=== PATIENT | male | born 1955 | race Caucasian/White ===

== ENCOUNTER 2018-09-01 08:30 | Inpatient (IN) | payer BC ==
--- NOTE | 2018-08-28 18:45 | Pre-op HX & Phy Repo 2 SIG ---
DATE OF ADMISSION: 09/01/2018 SCHEDULED FOR ADMISSION: September 01, 2018. HISTORY OF PRESENT ILLNESS: The patient is a 63-year-old male in overall stable health, who has a malfunctioning Crowder continent ileostomy as well as recurrent incisional hernia. The patient developed granulomatous colitis and in 1992 underwent proctocolectomy with Kathy ileostomy. In 1996 in [facility], he underwent conversion of his conventional ileostomy to a Crowder type of Kock pouch continent ileostomy. 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 The patient for the past year or two has been having intermittent incontinence, but no difficulty intubating. He underwent endoscopy of his pouch in [place] in February 2017 which revealed a shortened nipple valve but the pouch itself was healthy. He states that a conventional Kathy ileostomy is not an option for him. While he has intermittent incontinence, this has been increasing recently. He has had pain around the stoma with scarring and granulation tissue. He has chronic pouchitis with episodes 2 to 3 times a month. He has taken Flagyl and Cipro and irrigated his pouch with L-glutamine. He is scheduled to undergo laparotomy with revision of his Crowder continent ileostomy, likely creating a new valve and stoma and repair of recurrent incisional hernia. PAST MEDICAL HISTORY: MEDICATIONS: Remicade every 6 weeks, Zegerid (PPI), vitamin B12. ALLERGIES: He thinks he may have been allergic to some suture material. OPERATIONS: In addition to the above, he has a penile implant with the inflating device behind the bladder. He has undergone cholecystectomy, right wrist fusion, and knee surgeries. REVIEW OF SYSTEMS: He has arthritis. PHYSICAL EXAMINATION: GENERAL: He is 6 feet and weight 212 pounds. He previously weighed as much as 260 pounds. ABDOMEN: On most recent examination, his abdomen was slightly obese and soft. There is a long midline scar. This is subcostal right upper quadrant scar. There is a ventral hernia in the epigastrium and in the right lower quadrant extensive from above the stoma low in the right lower quadrant to the midline scar above the umbilicus. The [place] and will be examined upon arrival and dictated separately. IMPRESSION: 1. Malfunctioning Crowder continent ileostomy with incontinence due to deficient valve. 2. Painful stoma. 3. Recurrent pouchitis. 4. Incisional hernia. 5. History of granulomatous colitis . 6. Status post multiple abdominal operations. 6.1. Proctocolectomy and Kathy ileostomy in 1992. 6.2. Crowder continent ileostomy in 1996. 6.3. Repair of Crowder continent ileostomy enterocutaneous fistula and revision of stoma with abdominoperineal resection and extensive lysis of adhesions in July 2013 (all these operations were done elsewhere). PLAN: The patient will be admitted to undergo insertion of a dual lumen PICC line, pouch endoscopy, placement of an indwelling catheter for continuous drainage and decompression and will start receiving antibiotics and hydration on the evening of the day of admission preparing for surgery the following day. He will receive preoperative subcutaneous heparin as well. I have had a full discussion regarding the nature of the condition, the nature of the surgery, indications, alternatives, options, and risks and will have another complete discussion when he arrives from out of town. Wallace Valdez M.D. DR: Rachel JOB#: [id number] CC: BLAKE
[~2018-09-01] VITALS: Ht 180.3 cm; Wt 97.5 kg
--- NOTE | 2018-09-01 08:55 | NUR ---
NURSE NOTES: Patient was admitted to room 307 in stable condition. Patient a/o x 4. No respiratory distress noted. Denies any pain at this time. Unit orientation was given. Bed in lowest position, call light within reach. Will continue to monitor.
[2018-09-01 09:00] VITALS: BP 117/77
[2018-09-01] MEDS ORDERED: Zolpidem 5mg tab ORAL PRN (10:15)
[2018-09-01 10:22] LABS: BASOPHILS % (AUTO) 0.8 % (0.0-2.0); EOSINOPHILS % (AUTO) 9.8 % (0.0-3.0); HEMATOCRIT 54.1 % (42.0-52.0); HEMOGLOBIN 17.6 G/DL (14.2-18.0); LYMPHOCYTES % (AUTO) 23.2 % (20.0-45.0); MEAN CORPUSCULAR VOLUME 94 FL (80-99); MONOCYTES % (AUTO) 9.3 % (1.0-10.0); NEUTROPHILS % (AUTO) 56.9 % (45.0-75.0); PLATELET COUNT 206 K/UL (150-450); RED BLOOD COUNT 5.76 M/UL (4.70-6.10); RED CELL DISTRIBUTION WIDTH 12.6 % (11.6-14.8)
[2018-09-01 10:29] LABS: INR 1.1 (0.9-1.1)
[2018-09-01 10:37] LABS: ANION GAP 11 mmol/L (5-15); BLOOD UREA NITROGEN 9 mg/dL (7-18); CALCIUM 9.1 MG/DL (8.5-10.1); CARBON DIOXIDE 25 MMOL/L (21-32); CHLORIDE 105 MMOL/L (98-107); CREATININE 1.2 MG/DL (0.55-1.30); POTASSIUM 3.7 MMOL/L (3.5-5.1); SODIUM 140 MMOL/L (136-145)
--- NOTE | 2018-09-01 10:48 | NUR ---
RADIOLOGY DEPT., CHEST X-RAY DONE.-P.DYE
[2018-09-01 10:55] LABS: ALANINE AMINOTRANSFERASE 34 U/L (12-78); ALBUMIN 3.4 G/DL (3.4-5.0); ALBUMIN/GLOBULIN RATIO 0.8 (1.0-2.7); ALKALINE PHOSPHATASE 76 U/L (46-116); ASPARTATE AMINO TRANSFERASE 24 U/L (15-37); BILIRUBIN,TOTAL 1.2 MG/DL (0.2-1.0)
[2018-09-01 10:56] LABS: BILIRUBIN,DIRECT 0.2 MG/DL (0.0-0.3)
--- NOTE | 2018-09-01 10:57 | NUR ---
Unable to enter Unasyn order due to back order notification RN spoke to Pharmacist Candi, and informed the situation and Candi stated the medication is not available currently and it is on back order requires to replace with another medication. Will follow up with Dr. Valdez.
[2018-09-01] MEDS ORDERED: Heparin1,000 units/500ml Premix(Conc:2 units/ml) IV PRN (11:00)
[2018-09-01] MEDS ORDERED: Lidocaine 1% Plain 30 ml INJ PRN (11:00)
[2018-09-01] MEDS ORDERED: ZEGERID OTC 201 EACH ORAL (11:04)
[2018-09-01] MEDS ORDERED: FOLIC ACID0.4 MG ORAL (11:05)
[2018-09-01] MEDS ORDERED: MIRABEGRON PO (11:05)
[2018-09-01] MEDS ORDERED: VITAMIN D400 INTLU ORAL (11:05)
[2018-09-01] MEDS ORDERED: FOLBIC RF TABL1 EACH PO (11:05)
[2018-09-01 12:00] VITALS: BP 129/76
[2018-09-01] MEDS: Neomycin Sulfate 500mg Tab ORAL SCH ×3 (12:03→20:24)
--- NOTE | 2018-09-01 12:27 | Pre-Procedure Note/Attestation ---
Pre-Procedure Note/Attestation Complete Prior to Procedure Planned Procedure: not applicable Procedure Narrative: Crowder continent ileostomy pouch endoscopy Indications for Procedure Pre-Operative Diagnosis: malfunctioning Crowder continent ileostomy Attestation I attest that I discussed the nature of the procedure; its benefits; risks and complications; and alternatives (and the risks and benefits of such alternatives ), prior to the procedure, with the patient (or the patient's legal inbound call center representative). I attest that, if there was a reasonable possibility of needing a blood transfusion, the patient (or the patient's legal inbound call center representative) was given the [facility] standardized written summary, pursuant to the Ulises [place] Blood Safety Act ([place] Health and Safety Code # 1645, as amended). I attest that I re-evaluated the patient just prior to the surgery and that there has been no change in the patient's H&P, except as documented below: none Wallace Valdez MD Sep 01, 2018 12:27
--- NOTE | 2018-09-01 12:41 | Diagnostic Imaging Report ---
Indication: Cough Technique: One view of the chest Comparison: none Findings: Atelectatic changes are seen at both lung bases. The lungs and pleural spaces are otherwise clear. The heart size is normal. The aorta is tortuous Impression: Bilateral basilar atelectatic changes. No acute process otherwise
--- NOTE | 2018-09-01 12:51 | NUR ---
NURSE NOTES: Pt left the unit for GI Endoscopy in stable condition.
--- NOTE | 2018-09-01 13:22 | Brief Operative Note ---
Immediate Post Operative Note Operative Note Pre-op Diagnosis: malfunctioning Crowder continent ileostomy Procedure: Crowder pouch endoscopy Post-op Diagnosis: partially slipped valve of Crowder pouch Post-op Diagnosis: same as pre-op Findings: consistent w/pre-op dx studies Surgeon: krystle Anesthesia: other - none Specimen: none Complications: none Condition: stable Fluids: none Estimated Blood Loss: none Drains: other - 28 Bailey to Crowder pouch Implant(s) used?: No Wallace Valdez MD Sep 01, 2018 13:22
--- NOTE | 2018-09-01 13:39 | Anethesia Preoperative Eval ---
Anesthesia Pre-op PMH/ROS General Date of Evaluation: Sep 01, 2018 Time of Evaluation: 13:34 Anesthesiologist: Fuentes ASA Score: ASA 3 Mallampati Score Class I : Soft palate, uvula, fauces, pillars visible Class II: Soft palate, uvula, fauces visible Class III: Soft palate, base of uvula visible Class IV: Only hard plate visible Mallampati Classification: Class II Surgeon: José Miguel Diagnosis: Malfunctioning continent pouch Surgical Procedure: Ex laparotomy, revision of continent pouch, hernia repair Anesthesia History: none Family History: no anesthesia problems Allergies: Coded Allergies: NO KNOWN ALLERGIES (Verified Allergy, Unknown, 09/01/18) Medications: see eMAR Patient NPO?: Yes Past Medical History Cardiovascular: Reports: HTN - borderline; Denies: CAD, AL, valve dz, arrhythmia, other Pulmonary: Denies: asthma, COPD, TRES, other Gastrointestinal/Genitourinary: Reports: GERD, other Neurologic/Psychiatric: Reports: depression/anxiety; Denies: dementia, CVA, TIA, other Endocrine: Denies: DM, hypothyroidism, steroids, other HEENT: Denies: cataract (L), cataract (R), glaucoma, CHITIMACHA (L), CHITIMACHA (R), other Hematology/Immune: Denies: anemia, DVT, bleeding disorder, other Musculoskeletal/Integumentary: Denies: OA, RA, DJD, DDD, edema, other Other: other - overweight PMH Narrative: as above PSxH Narrative: Multiple intraabdominal Sx, penile prosthesis, ortho Sx Anesthesia Pre-op Phys. Exam Physician Exam Last Vital Signs Date Time Temp Pulse Resp B/P (MAP) Pulse Ox O2 Delivery O2 Flow Rate FiO2 09/01/18 12:00 97.6 81 18 129/76 (93) 97 09/01/18 09:03 Room Air Constitutional: NAD Neurologic: CN 2-12 intact Cardiovascular: RRR, no M/R/G Respiratory: CTA Gastrointestinal: S/NT/ND Airway Exam Mallampati Score: Class II MO: full Neck: short ROM: limited Teeth: intact Dentures: no upper, no lower Anesthesia Pre-op A/P Labs Hematology Test 09/01/18 10:13 White Blood Count 8.0 K/UL (4.8-10.8) Red Blood Count 5.76 M/UL (4.70-6.10) Hemoglobin 17.6 G/DL (14.2-18.0) Hematocrit 54.1 % (42.0-52.0) H Mean Corpuscular Volume 94 FL (80-99) Mean Corpuscular Hemoglobin 30.5 PG (27.0-31.0) Mean Corpuscular Hemoglobin Concent 32.5 G/DL (32.0-36.0) Red Cell Distribution Width 12.6 % (11.6-14.8) Platelet Count 206 K/UL (150-450) Mean Platelet Volume 9.6 FL (6.5-10.1) Neutrophils (%) (Auto) 56.9 % (45.0-75.0) Lymphocytes (%) (Auto) 23.2 % (20.0-45.0) Monocytes (%) (Auto) 9.3 % (1.0-10.0) Eosinophils (%) (Auto) 9.8 % (0.0-3.0) H Basophils (%) (Auto) 0.8 % (0.0-2.0) Coagulation Test 09/01/18 10:13 Prothrombin Time 11.4 SEC (9.30-11.50) Prothromb Time International Ratio 1.1 (0.9-1.1) Activated Partial Thromboplast Time 30 SEC (23-33) Chemistry Test 09/01/18 10:13 Sodium Level 140 MMOL/L (136-145) Potassium Level 3.7 MMOL/L (3.5-5.1) Chloride Level 105 MMOL/L (98-107) Carbon Dioxide Level 25 MMOL/L (21-32) Anion Gap 11 mmol/L (5-15) Blood Urea Nitrogen 9 mg/dL (7-18) Creatinine 1.2 MG/DL (0.55-1.30) Estimat Glomerular Filtration Rate > 60 mL/min (>60) Glucose Level 98 MG/DL (74-106) Calcium Level 9.1 MG/DL (8.5-10.1) Total Bilirubin 1.2 MG/DL (0.2-1.0) H Direct Bilirubin 0.2 MG/DL (0.0-0.3) Aspartate Amino Transf (AST/SGOT) 24 U/L (15-37) Alanine Aminotransferase (ALT/SGPT) 34 U/L (12-78) Alkaline Phosphatase 76 U/L (46-116) Total Protein 7.5 G/DL (6.4-8.2) Albumin 3.4 G/DL (3.4-5.0) Globulin 4.1 g/dL Albumin/Globulin Ratio 0.8 (1.0-2.7) L Risk Assessment & Plan Assessment: ASA 3 Plan: GA with ETT Status Change Before Surgery: No Pre-Antibiotics Drug: as scheduled Bam Dill MD Sep 01, 2018 13:39
--- NOTE | 2018-09-01 14:00 | NUR ---
NURSE NOTES: Patient came back to the unit.
--- NOTE | 2018-09-01 14:04 | NUR ---
RADIOLOGY: PICC PLACED
--- NOTE | 2018-09-01 14:09 | Brief Operative Note ---
Immediate Post Operative Note Operative Note Pre-op Diagnosis: needs IV access Procedure: PICC Post-op Diagnosis: same as pre-op Surgeon: Robert REED Specimen: none Complications: none Condition: stable Fluids: none Implant(s) used?: No Zachary Reed MD Sep 01, 2018 14:09
--- NOTE | 2018-09-01 14:09 | Pre-Procedure Note/Attestation ---
Pre-Procedure Note/Attestation Complete Prior to Procedure Planned Procedure: left Procedure Narrative: PICC Indications for Procedure Pre-Operative Diagnosis: needs IV access Attestation I attest that I discussed the nature of the procedure; its benefits; risks and complications; and alternatives (and the risks and benefits of such alternatives ), prior to the procedure, with the patient (or the patient's legal healthcare sales representative). I attest that, if there was a reasonable possibility of needing a blood transfusion, the patient (or the patient's legal healthcare sales representative) was given the [facility] standardized written summary, pursuant to the Ulises [place] Blood Safety Act ([place] Health and Safety Code # 1645, as amended). I attest that I re-evaluated the patient just prior to the surgery and that there has been no change in the patient's H&P, except as documented below: Zachary Reed MD Sep 01, 2018 14:08
[2018-09-01 16:00] VITALS: BP 127/83
--- NOTE | 2018-09-01 16:16 | Diagnostic Imaging Report ---
Indications: Needs long-term IV access Technique: Ultrasound confirms patent compressible left basilic vein. Total sterile technique, including sterile probe cover and sterile gel, hat, mask, sterile gown, large sterile drape, and preparation with 2% chlorhexidine utilized. Local anesthesia with 1% lidocaine. Under real-time ultrasound guidance, puncture basilic vein using 21-gauge needle, documented and archived, passage 0.018 guidewire under direct fluoroscopy, which was used to determine appropriate catheter length, exchange for 4 Tuvaluan peel-away sheath. 4 Tu[place]uan Bard dual-lumen power PICC cut to 46 cm. It was inserted through the peel-away sheath. Peel-away sheath and guidewire removed. Catheter fixed to the skin. Both catheter ports aspirated and flushed. Patient tolerated procedure well, without immediate complication. Digital radiograph documents satisfactory catheter tip position, at the cavoatrial junction. Total fluoroscopy time 17.2 seconds. Total dose area product 0.08 mGym2 Total number of images: One Impression: Successful placement of left arm PICC under sonographic and fluoroscopic guidance, as described above.
--- NOTE | 2018-09-01 16:55 | General Progress Note ---
Progress Note Progress Note H&P dictated. Pouch endoscopy revealed normal pouch with partially slipped valve. albumin 3.4 Hgb 17 Full discussion with patient regarding his condition, nature of the surgery ( creation of new valve and stoma and collar, possible stoma relocation, repair of recurrent incisional hernia with mesh, gastrostomy) including indications, alternatives, options and risks Plan: IV hydration via PIC line bowel prep in progress continuous drainage of Crowder pouch IV antibiotics; SQ heparin pre-op Wallace Valdez MD Sep 01, 2018 16:55
[2018-09-01] MEDS: D5 1/2NS w/KCl 20mEq 1,000 ML IV SCH (17:50)
[2018-09-01] MEDS ORDERED: D5 1/2NS w/KCl 20mEq 1,000 ML IV SCH (18:00)
--- NOTE | 2018-09-01 18:10 | NUR ---
NURSE NOTES: Information was given regarding NPO. Verbalized understanding.
--- NOTE | 2018-09-01 19:26 | NUR ---
HAND-OFF: Report given to Carlo Dubose RN. Endorsed I/S bedside teaching.
--- NOTE | 2018-09-01 19:59 | NUR ---
NURSE NOTES: Patient in bed awake and oriented. VSS. No SOB noted. Dressing is clean and dry. Ileo flushed and draining well. No pain. Call light within reach. Bed is locked and in low position. Called RT for IS. Needs attended. In stable condition.
[2018-09-01 20:00] VITALS: BP 123/79
--- NOTE | 2018-09-01 22:15 | Procedure Note ---
DATE OF PROCEDURE: 09/01/2018 PROCEDURE: Endoscopy. ENDOSCOPIST: Wallace Valdez M.D. ANESTHESIA: None. SEDATION: None. PRE-ENDOSCOPY DIAGNOSES: 1. Malfunctioning Crowder continent ileostomy with incontinence and some difficulty with intubation. 2. History of granulomatous colitis. 3. Status post multiple abdominal operations. 3.1. Abdominal colectomy and Kathy ileostomy in 1992. 3.2. Crowder continent ileostomy in 1996. 3.3. 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 POST-ENDOSCOPY DIAGNOSES: 1. Malfunctioning Crowder continent ileostomy with incontinence and some difficulty with intubation. 2. History of granulomatous colitis. 3. Status post multiple abdominal operations. 3.1. Abdominal colectomy and Kathy ileostomy in 1992. 3.2. Crowder continent ileostomy in 1996. 3.3. 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 ENDOSCOPY PERFORMED: Crowder continent ileostomy pouch endoscopy. FINDINGS: A partially slipped valve with a healthy pouch and no evidence of pouchitis. DESCRIPTION OF PROCEDURE: The patient was positioned supine in the GI lab without any anesthesia or sedation given or required. I first inserted a 28-German Bailey into the pouch to irrigate it and evacuate liquid effluent. I then used the GIF-P140 endoscope and manipulated around angulations with the distance from the stoma orifice to the tip of the valve approximately 9 cm. The pouch was distensible and mucosa was normal. Retroflexed views revealed a shortened nipple valve measuring approximately 2 to 3 centimeters instead of at least 5 cm. Withdrawal views confirmed marked angulation within the valve segment leading up to the stoma. After removing the endoscope, I inserted a 28-German Bailey evacuating air and taped it to the skin with a dressing over the stoma and connected it to continuous gravity drainage bag. The patient will continue preparations for surgery tomorrow. He tolerated the endoscopy well. Wallace Valdez M.D. DR: GUERO JOB#: [id number] CC: BLAKE
--- NOTE | 2018-09-01 23:15 | Pre-op HX & Phy Repo 2 SIG ---
DATE OF ADMISSION: 09/01/2018 The [place] and provides additional history including a more detailed list of all his past operations, which will be listed at the end of this dictation. ADDITIONAL PAST MEDICAL HISTORY AND MEDICATIONS: He had been taking Remicade every 6 weeks. It has been 9 weeks since his last dose. He takes omeprazole 40 mg daily. He takes vitamin supplements. He has been started just in the past 2 weeks for Myrbetriq 25 mg every other day because of urgency from passing kidney stones. He says he does not have an enlarged prostate. He has seen his urologist. The patient is not in any distress. PHYSICAL EXAMINATION: GENERAL: He is well developed and well nourished, 6 foot, 212 pounds with stable vital signs. HEENT: Within normal limits. LUNGS: Clear. HEART: Regular rhythm. BREASTS: Without masses. ABDOMEN: Soft, flat, and minimally obese. There is a long left paramedian continuing as lower midline scar from mid xiphoid to the pubis. His umbilicus is very low near the pubic symphysis. He has an incisional hernia approximately 8 x 10 cm to the right of midline in the area midway between the xiphoid and umbilicus. He has 2 smaller reducible incisional hernias more in the epigastrium, 1 to the left of the midline and 1 to the right of the middle. The stoma of his Crowder continent ileostomy pouch is low in the right lower quadrant with moderate scar tissue, but the tissues are soft around the stoma. The orifice is quite open approximately 2.5 cm. There is a subcostal scar from cholecystectomy. There is a transverse left lower quadrant scar starting near the incision extending laterally from what he says was his original Kathy ileostomy. BREASTS: Examination of the penis and scrotum reveals a penile implant. The inflating device is posterior to the bladder and not within the abdominal wall. It is on the left side. RECTAL: Status post proctectomy. EXTREMITIES: Without edema. Pulses 2+ femoral to pedal bilaterally. NEUROLOGIC: Physiologic. IMPRESSION: 1. Malfunctioning Crowder continent ileostomy with incontinence and some difficulty with intubation, likely a partially slipped valve based on pouch endoscopy. 2. Painful stoma. 3. Recurring pouchitis. 4. Recurrent incisional hernia. 5. Status post penile implant with inflating device on the left side behind the bladder. 6. History of granulomatous colitis. 7. Status post multiple abdominal operations. 7.1. Abdominal colectomy and Kathy ileostomy in 1992. 7.2. Crowder continent ileostomy in 1995 followed by a fistula with repair of the fistula, which led to recurrence of the fistula, which resolved with 1 month of NPO antibiotics continuous drainage of his Crowder pouch and TPN. 7.3. Cholecystectomy. 7.4. Repair of Crowder continent ileostomy, enterocutaneous fistula and revision of stoma together with abdominal-perineal resection and extensive lysis of adhesions in July 2013. 7.5. Enterocutaneous fistula occurring 2 weeks postoperative in July 2013 with repair that failed followed by a second repair with the fistula subsequently resolved. DISCUSSION: I had a detailed discussion with the patient regarding the nature of his condition based on the endoscopic findings and his past history. I explained the risk of severe adhesions including a hostile abdomen or frozen pelvis, which could limit what can be done. I discussed the option of restoring the existing valve versus creating a new valve and stoma with intestinal collar preserving the existing continent ileostomy pouch. Discussed the repair of incisional hernia including use of mesh and likely usage of a temporary catheter gastrostomy for decompression. I have discussed the nature of the surgery, indications, alternatives, options, and risks including bleeding, infection, injury to adjacent structures or organs, fistula, bowel obstruction, recurrence of hernia, and deep vein thrombosis or pulmonary embolism despite prophylaxis, etc. All questions have been answered. He understands and agrees to proceed. Wallace Valdez M.D. DR: GUERO JOB#: [id number] CC:
[2018-09-02] VITALS (18 sets, daily range): BP systolic 99–157; BP diastolic 56–84
[2018-09-02] MEDS: D5 1/2NS w/KCl 20mEq 1,000 ML IV SCH (02:13)
[2018-09-02] MEDS ORDERED: Heparin 5000 units/ml inj SUBQ SCH (05:30)
[2018-09-02] MEDS: Zoysn 3.37gm in NS 100ML IVPB SCH ×6 (06:06→23:53)
[2018-09-02 06:55] LABS: BASOPHILS % (AUTO) 0.9 % (0.0-2.0); EOSINOPHILS % (AUTO) 10.6 % (0.0-3.0); HEMOGLOBIN 17.4 G/DL (14.2-18.0); LYMPHOCYTES % (AUTO) 21.7 % (20.0-45.0); MEAN CORPUSCULAR VOLUME 94 FL (80-99); MONOCYTES % (AUTO) 8.8 % (1.0-10.0); NEUTROPHILS % (AUTO) 57.9 % (45.0-75.0); PLATELET COUNT 198 K/UL (150-450); RED BLOOD COUNT 5.77 M/UL (4.70-6.10); RED CELL DISTRIBUTION WIDTH 12.1 % (11.6-14.8); WHITE BLOOD COUNT 8.2 K/UL (4.8-10.8)
--- NOTE | 2018-09-02 07:05 | NUR ---
NURSE NOTES:REPORT GIVEN BY JILLIAN HARMAN RN.PATIENT OFF THE UNIT FOR SURGERY.
--- NOTE | 2018-09-02 07:10 | NUR ---
NURSE NOTES: Patient went down to OR accompanied by transporter. 2 person verification done. IV fluids running and ATB sent down with the patients chart. Left in stable condition.
[2018-09-02] MEDS ORDERED: fentaNYL 100 mcg/2 mL IV ONE (07:11)
[2018-09-02] MEDS ORDERED: Midazolam 2mg/2ml Inj ONE ×2 (07:11→11:38)
[2018-09-02] MEDS ORDERED: Lidocaine 1% MPF 10mg/ml 5ml ONE (07:14)
[2018-09-02] MEDS ORDERED: Propofol 200mg/20ml IV ONE ×2 (07:14→10:26)
[2018-09-02 07:17] LABS: ALANINE AMINOTRANSFERASE 33 U/L (12-78); ALBUMIN 3.3 G/DL (3.4-5.0); ALBUMIN/GLOBULIN RATIO 0.8 (1.0-2.7); ALKALINE PHOSPHATASE 76 U/L (46-116); ANION GAP 10 mmol/L (5-15); ASPARTATE AMINO TRANSFERASE 24 U/L (15-37); BILIRUBIN,TOTAL 1.3 MG/DL (0.2-1.0); BLOOD UREA NITROGEN 8 mg/dL (7-18); CALCIUM 8.9 MG/DL (8.5-10.1); CARBON DIOXIDE 26 MMOL/L (21-32); CHLORIDE 105 MMOL/L (98-107); CREATININE 1.3 MG/DL (0.55-1.30); POTASSIUM 3.8 MMOL/L (3.5-5.1); SODIUM 141 MMOL/L (136-145)
[2018-09-02] MEDS ORDERED: NeoSporin Gu Irrig 1ml Amp IRRIG ONE (07:18)
[2018-09-02] MEDS ORDERED: Bacitracin 50000 Units Vial ONE (07:18)
--- NOTE | 2018-09-02 07:18 | Pre-Procedure Note/Attestation ---
Pre-Procedure Note/Attestation Complete Prior to Procedure Planned Procedure: not applicable Procedure Narrative: Revision of Crowder Continent Ileostomy, repair incisional herniae with mesh, gastrostomy Indications for Procedure Pre-Operative Diagnosis: malfunctioning Crowder continent ileostomy; incisional herniae Attestation I attest that I discussed the nature of the procedure; its benefits; risks and complications; and alternatives (and the risks and benefits of such alternatives ), prior to the procedure, with the patient (or the patient's legal customer field representative). I attest that, if there was a reasonable possibility of needing a blood transfusion, the patient (or the patient's legal customer field representative) was given the [place] [facility] standardized written summary, pursuant to the Ul[place] Blood Safety Act ([place] Health and Safety Code # 1645, as amended). I attest that I re-evaluated the patient just prior to the surgery and that there has been no change in the patient's H&P, except as documented below: none Wallace Valdez MD Sep 02, 2018 07:18
[2018-09-02] MEDS ORDERED: Zemuron 50mg/5ml Inj IV ONE ×2 (07:20→09:07)
[2018-09-02] MEDS ORDERED: Succinylcholine 20mg/ml 10ml vial ONE (07:20)
[2018-09-02 07:25] LABS: BILIRUBIN,DIRECT 0.2 MG/DL (0.0-0.3)
[2018-09-02] MEDS ORDERED: Sterile Water Irrig 1000ml IRRIG ONE (07:30)
[2018-09-02] MEDS ORDERED: Neostigmine 1mg/ml 10ml Inj ONE (07:30)
[2018-09-02] MEDS ORDERED: LR 1000ml ONE (07:30)
[2018-09-02] MEDS ORDERED: Morphine Sulfate 10mg/ml Inj ONE (08:28)
[2018-09-02] MEDS ORDERED: Ketorolac 30mg Inj ONE (08:30)
[2018-09-02] MEDS ORDERED: Sodium Chloride 10ml vial INJ ONE (08:30)
[2018-09-02] MEDS ORDERED: Glycopyrrolate 0.2mg/ml 1ml Vial ONE (08:30)
[2018-09-02] MEDS ORDERED: LR 1000ml 1,000 ML IVLG SCH (08:54)
[2018-09-02] MEDS ORDERED: Hydromorphone 0.5mg/0.5ml inj IVP PRN (09:00)
[2018-09-02] MEDS ORDERED: DiphenhydrAMINE 50mg/ml Inj IVP PRN (09:00)
[2018-09-02] MEDS ORDERED: Meperidine 50mg/ml Inj(FOR RIGORS ONLY) IV PRN (09:00)
[2018-09-02] MEDS ORDERED: Acetaminophen (Non formulary) 100 ML IV ONE (09:00)
[2018-09-02] MEDS ORDERED: Tubing IV Secondary IV ONE (10:02)
[2018-09-02] MEDS ORDERED: NS 500ML ONE (10:02)
[2018-09-02] MEDS ORDERED: NS 275ml ONE (10:02)
[2018-09-02] MEDS ORDERED: NS Irrig 1000ml ONE (10:02)
--- NOTE | 2018-09-02 11:08 | NUR ---
CASE MANAGEMENT: INITIAL REVIEW 63 YO M PRESENTED TO HOSPITAL CC: MALFUNCTIONING GUERRERO ILEOSTOMY PMHx: CROHNS DX SI:ENTEROSTOMY MALFUNCTION. T 97.5 HR 87 RR 18 B/P 117/77 SATS 95% ON RA TBILI 1.2 IS:LR @ 10 mL/HR D5W @ 125 mL/HR PEPCID IV Q12H FLAGYL IV Q6H ZOSYN IV Q6H PATIENT ADMITTED TO MED/SURG 09/01/2018 @ 0930 DCP: PATIENT TO BE DISCHARGED TO HOME ONCE MEDICALLY CLEARED. PLAN OF CARE: Pre-op Diagnosis: malfunctioning Guerrero continent ileostomy Procedure: Guerrero pouch endoscopy Post-op Diagnosis: partially slipped valve of Guerrero pouch 09/02/2018 SI:ENTEROSTOMY MALFUNCTION. T 97.9 HR 68 RR 17 B/P 121/70 SATS 97% ON RA TBILI 1.3 IS:LR @ 10 mL/HR D5W @ 125 mL/HR PEPCID IV Q12H FLAGYL IV Q6H ZOSYN IV Q6H MED/SURG STATUS DCP: PATIENT TO BE DISCHARGED TO HOME ONCE MEDICALLY CLEARED. PLAN OF CARE: POST OP CARE Addendum: 09/02/18 at 1313 by Ngoc Chris CM INTERQUAL MET
[2018-09-02] MEDS ORDERED: LORazepam 1mg tab SL PRN ×2 (11:30)
--- NOTE | 2018-09-02 11:40 | Brief Operative Note ---
Immediate Post Operative Note Operative Note Pre-op Diagnosis: malfunctioning Crowder continent ileostomy; incisional herniae Procedure: Revision of Crowder Continent Ileostomy valve; repair incisional hernia with Mosaic coated polypropylene mesh Post-op Diagnosis: same Post-op Diagnosis: same as pre-op Findings: consistent w/pre-op dx studies Surgeon: krystle Finished Stock Inspector: joanne Anesthesiologist: jessica Anesthesia: general Specimen: yes - incisional hernia sac Complications: none Condition: stable Fluids: see anesthesia record Estimated Blood Loss: volume - 50cc Drains: other - 28 Bailey to Crowder Pouch Implant(s) used?: Yes - Mosaic coated polypropylene mesh Wallace Valdez MD Sep 02, 2018 11:40
--- NOTE | 2018-09-02 11:44 | Immediate Post-Op Evaluation ---
Immediate Post-Op Evalulation Immediate Post-Op Evalulation Procedure: Exploratory laparotomy revision of continent pouch, incisional hernia repai Date of Evaluation: Sep 02, 2018 Time of Evaluation: 11:43 IV Fluids: 1200 Blood Products: none Estimated Blood Loss: 50 Urinary Output: 200 Blood Pressure Systolic: 125 Blood Pressure Diastolic: 72 Pulse Rate: 86 Respiratory Rate: 20 O2 Sat by Pulse Oximetry: 98 Temperature (Fahrenheit): 97.8 Pain Score (1-10): 2 Nausea: No Vomiting: No Complications none Patient Status: reacts, patent, extubated, none Hydration Status: adequate Bam Dill MD Sep 02, 2018 11:44
[2018-09-02] MEDS ORDERED: HYDROmorphone 1mg/ml Carpuject SUBQ PRN (11:45)
[2018-09-02] MEDS ORDERED: Diphenydramine inj IV PRN (11:45)
[2018-09-02] MEDS ORDERED: Rate Change PCA 1 Each MISC PRN (11:45)
[2018-09-02] MEDS ORDERED: PCA Education Pamphlet MISC SCH (11:45)
[2018-09-02] MEDS ORDERED: Midazolam 2mg/2ml Inj IVP SCH ×2 (11:45→12:00)
[2018-09-02] MEDS: PCA HYDROmorphone 30mg/30ml Syr IV PRN (12:07)
--- NOTE | 2018-09-02 13:13 | NUR ---
INSURANCE NO B/AR INDICATION WHERE TO FAX CLINICALS
--- NOTE | 2018-09-02 13:25 | NUR ---
NURSE NOTES:FR. PACU BY BED S/P REVISION OF BCIR WITH REPAIR OF INCISIONAL HERNIA WITH MESH UNDER GENERAL ANESTHESIA,REPORT GIVEN BY VILMA MACKAY.PT.AWAKE/DROWSY BUT CAN VERBALIZED NEEDS,ILEO WITH BROWNISH OUTPUT,RAYA DRAINING YELLOW URINE,PICC LINE AMPARO INTACT/PATENT.PVS WITH IN BASELINE.WITH 3LITERS N/C.ON FLOWER CHENILLER DILAUDID,EDUCATION PROVIDED AND UNDERSTOOD.STILL NAUSEATED(WAS MEDICATED AT 12;18)POST OP ORDERS INFORMED,WILL CONTINUE PLAN OF CARE.
--- NOTE | 2018-09-02 14:00 | NUR ---
NURSE NOTES:DR. BALLARD NOTIFIED RE:PATIENT STILL NAUSEATED.ORDERS CARRIED OUT.
[2018-09-02] MEDS: D5 1/4NS w/KCl 20mEq 1,000 ML IV SCH ×3 (14:12→23:53)
--- NOTE | 2018-09-02 14:40 | NUR ---
NURSE NOTES:PT.ASLEEP,NO DISTRESS,RELIEVED FR. NAUSEA.
--- NOTE | 2018-09-02 19:00 | Operative Note - Dictated ---
DATE OF OPERATION: 09/02/2018 SURGEON: Wallace Valdez M.D. CREW TEAM MEMBER SURGEON: Rufino Thompson M.D. ANESTHESIOLOGIST: Bam Dill M.D. TYPE OF ANESTHESIA: General endotracheal. PREOPERATIVE DIAGNOSES: 1. Malfunctioning Crowder continent ileostomy. 2. Recurrent incisional hernia. 3. History of granulomatous colitis. 4. Status post multiple abdominal operations. 4.1. Abdominal colectomy and Kathy ileostomy in 1992. 4.2. 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 4.3. Open cholecystectomy. 4.4. Repair of Crowder continent ileostomy, enterocutaneous fistula with revision of stoma together with abdomino-perineal proctectomy and extensive lysis of adhesions July 2013. 4.5. Crowder continent ileostomy, enterocutaneous fistula occurring two weeks postoperative July 2013 with repair that failed followed by second repair with fistula subsequently healing (all these operations were done elsewhere). POSTOPERATIVE DIAGNOSES: 1. Malfunctioning Crowder continent ileostomy. 2. Recurrent incisional hernia. 3. History of granulomatous colitis. 4. Status post multiple abdominal operations. 4.1. Abdominal colectomy and Kathy ileostomy in 1992. 4.2. 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 4.3. Open cholecystectomy. 4.4. Repair of Crowder continent ileostomy, enterocutaneous fistula with revision of stoma together with abdomino-perineal proctectomy and extensive lysis of adhesions July 2013. 4.5. Crowder continent ileostomy, enterocutaneous fistula occurring two weeks postoperative July 2013 with repair that failed followed by second repair with fistula subsequently healing (all these operations were done elsewhere). OPERATION PERFORMED: 1. Laparotomy with complex revision of Crowder continent ileostomy valve with extensive lysis of adhesions. 2. Repair of recurrent incisional hernia utilizing atrium mosaic 03FA coated polypropylene mesh. DESCRIPTION OF PROCEDURE: The patient was taken to the operating room and under general endotracheal anesthesia with sequential compression device stockings and Bailey catheter in place and having been prepped and draped in usual fashion with the stoma initially sealed with Tegaderm, previous left paramedian continuing as a lower midline incision was reopened. Overall, the scar was wide. I elected not to excise the scar because my assessment was there would be too much tension on the new skin edges after all these operations. There were moderately severe adhesions of small bowel loops to the undersurface of the abdominal wall and into the pelvis with gradual mobilization and without any enterotomies. The pouch was mobilized. I was able to insert a 28-Ugandan Bailey catheter through the stoma into the pouch to assist with mobilization. However, there were overlying loops of small intestine that were densely adherent to the parietes and I felt to take these down definitely would risk enterotomies and increased risk of postoperative fistula. I was able to expose the anterior pouch wall near the apex and between stay sutures of 3-0 silk made a pouch enterotomy. The Bailey catheter was brought through and the nipple valve was able to be grasped and measured at least 5 cm. However, there was an adhesion to the anterior pouch wall that was causing it to retract and angulate. This was divided with cautery through a thick scar without penetration to the mucosa. There was no bleeding. This allowed the valve to be nicely reformed and I reinforced it with a staple line utilizing PI-55 stapling device with 4.8 mm kat, avoiding the mesentery. The enterotomy was closed with continuous full-thickness 3-0 Vicryl followed by imbricating 3-0 silk sutures. Prior to creating the enterotomy, we manually occluded what I felt was the afferent bowel although as mentioned above, not all the adhesions were taken down, and I distended the pouch with 700 mL of saline and upon removing the catheter, there was some incontinence but not severe. The catheter was reintroduced and the pouch decompressed. Now after following closure of the enterotomy, I did not think additional testing was warranted. We had consider relocation of the stoma to the left lower quadrant because of scarring and some pain. Hypertrophic granulations were cauterized. There was too much scarring in this area to relocate the stoma without serious risk to the pouch integrity. Excision of the scarred skin would leave a gap. Hopefully this will resolve with conservative treatment in terms of symptoms. The field was irrigated and carefully inspected. The bowel was intact and hemostasis was secured. The 28-Ugandan Bailey catheter was positioned in the apex of the pouch and sutured to the skin with two sutures of 2-0 silk and flushed and connected to a gravity drainage bag. I considered performing catheter gastrostomy, but the lesions were too severe to warrant that procedure. Anesthesia inserted a temporary nasogastric tube to fully decompress the stomach and then removed it. The main hernia was in the upper abdomen to the right of midline extending to the somewhat low right subcostal cholecystectomy scar from the midline scar and measured this 6 x 8 cm. There were two small hernias in the epigastrium, one of which was closed with [id number] 0 Vicryl. The hernia sac was stripped out on the right side securing hemostasis with cautery. It was not possible to do a component separation procedure to bring the abdominal wall together primarily. A rectangle of mesh was appropriately positioned and using a tacking device using absorbable tacke secured in overlapped fashion encompassing all defects. The fascia was closed in one layer starting at both ends with continuous looped 0 PDS suture. Additional antibiotic irrigation was utilized and the skin closed with kat. Dry sterile dressings applied. Final sponge and needle counts were correct. The patient tolerated the procedure well and left the operating room in good condition. Wallace Valdez M.D. DR: Rachel JOB#: [id number] CC: BLAKE
[2018-09-02] MEDS: PCA shift volume MISC SCH (19:30)
--- NOTE | 2018-09-02 19:36 | NUR ---
HAND-OFF: Report given to JILLIAN HARMAN RN..
[2018-09-02] MEDS: Dyna-Hex 2% Top Sol 2oz TOPIC SCH (20:08)
--- NOTE | 2018-09-02 20:59 | NUR ---
NURSE NOTES: Patient in bed awake and oriented with family at bedside. on 3L NC O2 sat @ 97%. Ileo flushed per MD's orders. CUFF SLITTER button use re-inforced for increasing pain. Dressing is clean, dry and intact. Bailey catheter draining well. PICC line flushed. Nausea still present but no vomitus. PRN zofran given patient tolerated well. Needs attended. Call light within reach. In stable condition.
[2018-09-03] VITALS: BP 111/68
[2018-09-03 04:00] VITALS: BP 109/69
[2018-09-03 05:27] LABS: ANION GAP 6 mmol/L (5-15); BLOOD UREA NITROGEN 8 mg/dL (7-18); CALCIUM 8.1 MG/DL (8.5-10.1); CARBON DIOXIDE 27 MMOL/L (21-32); CHLORIDE 108 MMOL/L (98-107); CREATININE 1.6 MG/DL (0.55-1.30); POTASSIUM 3.9 MMOL/L (3.5-5.1); SODIUM 141 MMOL/L (136-145)
[2018-09-03 05:35] LABS: EOSINOPHILS % (AUTO) 8.8 % (0.0-3.0); HEMATOCRIT 47.9 % (42.0-52.0); HEMOGLOBIN 15.6 G/DL (14.2-18.0); LYMPHOCYTES % (AUTO) 10.9 % (20.0-45.0); MEAN CORPUSCULAR VOLUME 95 FL (80-99); MONOCYTES % (AUTO) 11.5 % (1.0-10.0); NEUTROPHILS % (AUTO) 67.9 % (45.0-75.0); PLATELET COUNT 174 K/UL (150-450); RED BLOOD COUNT 5.07 M/UL (4.70-6.10); RED CELL DISTRIBUTION WIDTH 12.1 % (11.6-14.8); WHITE BLOOD COUNT 9.8 K/UL (4.8-10.8)
[2018-09-03] MEDS: Zoysn 3.37gm in NS 100ML IVPB SCH ×3 (05:41→18:15)
--- NOTE | 2018-09-03 07:20 | NUR ---
NURSE NOTES: Patients pain well controlled during the night. No more nausea after getting zofran. Ice chips given. IS at bedside table. Dressing remained clean and intact. Needs attended. Endorsed patient to Serina Collins RN.
[2018-09-03] MEDS: PCA shift volume MISC SCH ×2 (07:23→19:37)
--- NOTE | 2018-09-03 07:45 | NUR ---
NURSE NOTES: Received report from Carlo MACKAY. Patient is awake alert and oriented x4, no acute distress noted. Reporting pain is well managed with SUPERVISOR PUBLIC MESSAGE SERVICE at this time. AMPARO PICC patent, dressing clean and dry, running IVF and antibiotic per order. SUPERVISOR PUBLIC MESSAGE SERVICE settings checked and verified against order. Ileo and saucedo to gravity drainage, abdominal dressing clean, dry, intact. SCD's on. Patient updated on plan of care for the day. Side rails upx3, bed low and locked, call light in reach. Will continue to monitor.
[2018-09-03 08:00] VITALS: BP 116/73
--- NOTE | 2018-09-03 09:01 | NUR ---
RD ASSESSMENT & RECOMMENDATIONS SEE CARE ACTIVITY FOR COMPLETE ASSESSMENT DAILY ESTIMATED NEEDS: Needs based on Surgery/ 83.5 kg abw 25-30 kcals/kg 5191-2040 total kcals 1-2 g protein/kg 84-167 g total protein 25-30 mL/kg 5942-3256 total fluid mLs NUTRITION DIAGNOSIS: Altered GI function R/T h/o granulomatous colitis as evidenced by admitted for malfunctioning Crowder continent ileostomy, s/p exploratory laparotomy revision of continent pouch,incisional hernia repair, NPO at this time. CURRENT DIET:NPO PO DIET RECOMMENDATIONS: DIET PER MD PARENTERAL NUTRITION RECOMMENDATIONS: D/AA Rate: 79 IL Rate: 10 Total Rate: 89 Volume: 2136 % Dextrose: 18 % AA: 5.5 Energy (kcals/kg): 2057 Protein (g/kg protein): 104 Nonprotein KCALS: 1640 GIR (mg CHO/kg/min): 2.8 % Fat KCALS: 23 NCP: N Ratio: 100 TPN Comment: *IF TPN INDICATED : D18% AA 5.5% @ 79ml/hr + IL20% @ 10ml/hr -> total of 89ml/hr, all 3:1 *TPN at goal will provide 99% est kcal and 100% est prot needs ADDITIONAL RECOMMENDATIONS: * Monitor lytes, BGs, LFTs daily w/ TPN * Standing wt for accurate CBW, rec weekly wt monitoring.
--- NOTE | 2018-09-03 11:21 | 48 Hour Post Anesthesia Eval ---
Post Anesthesia Evaluation Procedure: Exploratory laparotomy revision of continent pouch, incisional hernia repai Date of Evaluation: Sep 03, 2018 Time of Evaluation: 11:20 Blood Pressure Systolic: 118 0: 76 Pulse Rate: 68 Respiratory Rate: 20 Temperature (Fahrenheit): 97.6 O2 Sat by Pulse Oximetry: 98 Airway: patent Nausea: No Vomiting: No Pain Intensity: 3 Hydration Status: adequate Cardiopulmonary Status: stable Mental Status/LOC: patient returned to baseline Follow-up Care/Observations: n/a Post-Anesthesia Complications: none Follow-up care needed: N/A Bam Dill MD Sep 03, 2018 11:21
[2018-09-03 12:00] VITALS: BP 115/69
--- NOTE | 2018-09-03 12:11 | NUR ---
CASE MANAGEMENT: REVIEW 09/03/2018 SI:ENTEROSTOMY MALFUNCTION. T 98.5 HR 92 RR 18 B/P 116/73 SATS 116/73 SATS 94% ON RA CL 108 CR 1.6 GLU 112 CA 8.1 IS:LR @ 10 mL/HR D5W @ 125 mL/HR PEPCID IV Q12H FLAGYL IV Q6H ZOSYN IV Q6H MED/SURG STATUS DCP: PATIENT TO BE DISCHARGED TO HOME ONCE MEDICALLY CLEARED. PLAN OF CARE: Procedure: Exploratory laparotomy revision of continent pouch, incisional hernia repair Date of Evaluation: Sep 03, 2018
--- NOTE | 2018-09-03 12:17 | NUR ---
INSURANCE NO B/AR INDICATION WHERE TO FAX CLINICALS
[2018-09-03] MEDS: D5 1/4NS w/KCl 20mEq 1,000 ML IV SCH ×2 (14:38→20:39)
[2018-09-03 16:00] VITALS: BP 115/67
--- NOTE | 2018-09-03 16:31 | General Progress Note ---
Progress Note Progress Note AVSS comfortable with dilaudid POWER PLANT INSTALLER. Ambulated earlier. Chest clear Cor Reg rhythm Abdomen soft, slight distention, incision clean, stoma pink urine 650cc overnight; BCIR ileo small amount enteric fluid WBC 9800 Hgb 15.6 (was 17.1) albumin 3.3 (low) pre-op Imp. Ileus Pre-admission moderate protein malnutrition Plan: TPN, NPO continue Bailey (pelvic dissection) Continuous drainage of Crowder continent ileostomy pouch continue IV antibiotics f/u labs Wallace Valdez MD Sep 03, 2018 16:31
--- NOTE | 2018-09-03 16:53 | Cardiology Report ---
APPROVED REPORT EKG Measurement Heart [id number] Normal sinus rhythm Normal ECG
--- NOTE | 2018-09-03 18:00 | NUR ---
NURSE NOTES: Total ileo output for my shift: +20mL, output is dark green Total urine output: 700mL Patient ambulated in hallway x1, tolerated activity well. Pain well managed with ASBESTOS WIRE FINISHER.
--- NOTE | 2018-09-03 19:00 | NUR ---
HAND-OFF: Report given to Diego MACKAY. Patient is in stable condition.
--- NOTE | 2018-09-03 19:30 | NUR ---
NURSE NOTES: Pt lying in bed w/bed in lowest position and call light/CARPENTER SUPERVISOR WOODEN SHIP button within reach. Pt A&Ox4, VSS, and c/o [id number]-rh-[id number] pain; AMPARO PICC line intact/asymptomatic w/IVF infusing; ileo & F/C patent/draining well; and surgical dressing C/D/I. Will continue to monitor.
[2018-09-03 20:00] VITALS: BP 121/70
[2018-09-03] MEDS: Dyna-Hex 2% Top Sol 2oz TOPIC SCH (20:35)
[2018-09-03] MEDS: FAT EMULSION 20% IV SCH (20:36)
[2018-09-03] MEDS: TPN IV SCH (20:36)
[2018-09-04] VITALS: BP 100/61
[2018-09-04] MEDS ORDERED: Dextrose 50% 25ml Syringe IV PRN
[2018-09-04] MEDS: Zoysn 3.37gm in NS 100ML IVPB SCH ×4 (00:08→17:49)
[2018-09-04 04:00] VITALS: BP 119/77
[2018-09-04 05:26] LABS: BASOPHILS % (AUTO) 0.7 % (0.0-2.0); EOSINOPHILS % (AUTO) 9.6 % (0.0-3.0); HEMATOCRIT 47.4 % (42.0-52.0); HEMOGLOBIN 15.4 G/DL (14.2-18.0); LYMPHOCYTES % (AUTO) 11.8 % (20.0-45.0); MEAN CORPUSCULAR VOLUME 94 FL (80-99); PLATELET COUNT 162 K/UL (150-450); RED BLOOD COUNT 5.03 M/UL (4.70-6.10); RED CELL DISTRIBUTION WIDTH 11.9 % (11.6-14.8); WHITE BLOOD COUNT 9.9 K/UL (4.8-10.8)
[2018-09-04 05:48] LABS: ALANINE AMINOTRANSFERASE 22 U/L (12-78); ALBUMIN 2.4 G/DL (3.4-5.0); ALBUMIN/GLOBULIN RATIO 0.6 (1.0-2.7); ALKALINE PHOSPHATASE 58 U/L (46-116); ANION GAP 9 mmol/L (5-15); ASPARTATE AMINO TRANSFERASE 16 U/L (15-37); BILIRUBIN,TOTAL 0.9 MG/DL (0.2-1.0); BLOOD UREA NITROGEN 8 mg/dL (7-18); CARBON DIOXIDE 27 MMOL/L (21-32); CHLORIDE 106 MMOL/L (98-107); CREATININE 1.3 MG/DL (0.55-1.30); PHOSPHORUS 1.9 MG/DL (2.5-4.9); POTASSIUM 3.6 MMOL/L (3.5-5.1); SODIUM 141 MMOL/L (136-145)
[2018-09-04] MEDS: Insulin NovoLOG Flexpen S/S (Mod) SUBQ SCH ×4 (06:21→18:01)
[2018-09-04] MEDS: PCA shift volume MISC SCH ×2 (07:17→19:30)
--- NOTE | 2018-09-04 07:30 | NUR ---
NURSE NOTES: Patient is in bed awake and able to verbalize needs. Stable. States pain is a 3/10 and is using TIMBER HEWER as ordered. Patient encouraged to use call light for assistance, verbalized understanding. Bailey in place, draining. Ileo draining into bag as ordered. Patient is in bed in locked and lowest position with call light within reach. Will continue to monitor.
--- NOTE | 2018-09-04 07:35 | NUR ---
HAND-OFF: Report given to THOMPSON Ceron. Endorsed low Mag and Phos values.
[2018-09-04 08:00] VITALS: BP 113/72
--- NOTE | 2018-09-04 10:00 | General Progress Note ---
Progress Note Progress Note AVSS Ambulating with assistance. Pain controlled with Dilaudid DIRECT MAIL COORDINATOR. Good IS effort chest clear Abdomen mildly distended, soft, incision clean Urine 1900cc clear yellow BCIR ileo 290 enteric WBC 9900 Hgb 15.4 stable Cr down 1.3 Mg 1.6 Phos 1.9 Albumin 2.4 Imp. Ileus Malnutrition pre-op on admission Plan: Continue npo, TPN, DIRECT MAIL COORDINATOR supplement Mg and P with IV infusions continue Bailey, maintain continuous drainage of Crowder Pouch Wallace Valdez MD Sep 04, 2018 10:00
[2018-09-04] MEDS ORDERED: Potassium Phosphate 30 MM in NS 275 ML IV ONE (11:00)
[2018-09-04] MEDS: PCA HYDROmorphone 30mg/30ml Syr IV PRN (11:38)
[2018-09-04 12:00] VITALS: BP 124/75
--- NOTE | 2018-09-04 14:19 | NUR ---
CASE MANAGEMENT: REVIEW 09/04/2018 SI:ENTEROSTOMY MALFUNCTION. T 98.5 HR 93 RR18 B/P 124/75 SATS 92% ON RA GLU 135 CA 8 PHOS 1.9 MG 1.6 IS:LR @ 10 mL/HR D5W @ 125 mL/HR PEPCID IV Q12H FLAGYL IV Q6H ZOSYN IV Q6H MED/SURG STATUS DCP: PATIENT TO BE DISCHARGED TO HOME ONCE MEDICALLY CLEARED. PLAN OF CARE: NPO TPN DESTINATION COORDINATOR
--- NOTE | 2018-09-04 14:22 | NUR ---
INSURANCE NO B/AR INDICATION WHERE TO FAX CLINICALS
[2018-09-04 16:00] VITALS: BP 132/78
--- NOTE | 2018-09-04 19:40 | NUR ---
NURSE NOTES: Report taken from THOMPSON Ceron. Patient is awake and in bed, A&Ox4. Just finished ambulating. No signs of distress on room air. Minor complaint of pain at surgical site, 04/13, instructed continued use of RETOUCHER PHOTOENGRAVING pump, RETOUCHER PHOTOENGRAVING continuous .1 and Bolus .. Skin is intact, surgical site c/d/i. AMPARO PICC line c/d/i and both ports patent, running TPN at 89mls/hr and D51/4+20KCl at 36mls/hr. Ileo c/d/i and patent, draining dark green fluid, flush Q3. Saucedo catheter emptied prior to shift, minimal drainage, patient does not feel discomfort with saucedo at this time, reassess in 1hr. Bed in lowest position, call light within reach.
--- NOTE | 2018-09-04 19:45 | NUR ---
HAND-OFF: Report given to Willian MACKAY. Patient is stable.
[2018-09-04 20:00] VITALS: BP 117/62
[2018-09-04] MEDS: D5 1/4NS w/KCl 20mEq 1,000 ML IV SCH (20:00)
[2018-09-04] MEDS: TPN IV SCH (20:02)
[2018-09-04] MEDS: FAT EMULSION 20% IV SCH (20:02)
[2018-09-04] MEDS: Dyna-Hex 2% Top Sol 2oz TOPIC SCH (20:03)
--- NOTE | 2018-09-04 21:00 | NUR ---
NURSE NOTES: Patient called RN into room in extreme discomfort. Upon reassessment of saucedo, no output has been noted. Patient stated that he feels like he has to urinate but nothing is coming out. Attempted to adjust patient to aide in urination with no success. Contacted .
[2018-09-04] MEDS ORDERED: Tubing IV Secondary IV ONE (21:04)
--- NOTE | 2018-09-04 21:05 | NUR ---
NURSE NOTES: Spoke with Dr. Valdez about saucedo. Bladder scan showed 350cc, still no output. Saucedo was dislodged out of bladder. Balloon only withdrew 6cc, noted some wetness in jacy area. Withdrew catheter. Patient UO was 325cc immediately after removal, small amount of blood in urine. Contacted Dr. Valdez with update. Stated that keep saucedo out, if patient does not urinate within 6hours, bladder scan, and order ok to place new saucedo.
[2018-09-05] VITALS: BP 121/70
[2018-09-05] MEDS: Zoysn 3.37gm in NS 100ML IVPB SCH ×4 (00:15→18:28)
[2018-09-05] MEDS: Insulin NovoLOG Flexpen S/S (Mod) SUBQ SCH ×4 (00:42→18:26)
[2018-09-05 04:00] VITALS: BP 122/76
[2018-09-05 05:20] LABS: BASOPHILS % (AUTO) 1.1 % (0.0-2.0); EOSINOPHILS % (AUTO) 10.9 % (0.0-3.0); HEMATOCRIT 46.8 % (42.0-52.0); HEMOGLOBIN 15.5 G/DL (14.2-18.0); LYMPHOCYTES % (AUTO) 12.7 % (20.0-45.0); MEAN CORPUSCULAR VOLUME 93 FL (80-99); MONOCYTES % (AUTO) 9.9 % (1.0-10.0); NEUTROPHILS % (AUTO) 65.4 % (45.0-75.0); PLATELET COUNT 181 K/UL (150-450); RED BLOOD COUNT 5.05 M/UL (4.70-6.10); RED CELL DISTRIBUTION WIDTH 12.9 % (11.6-14.8); WHITE BLOOD COUNT 9.4 K/UL (4.8-10.8)
[2018-09-05 06:33] LABS: ANION GAP 6 mmol/L (5-15); BLOOD UREA NITROGEN 10 mg/dL (7-18); CALCIUM 8.3 MG/DL (8.5-10.1); CARBON DIOXIDE 28 MMOL/L (21-32); CHLORIDE 105 MMOL/L (98-107); CREATININE 1.2 MG/DL (0.55-1.30); PHOSPHORUS 2.3 MG/DL (2.5-4.9); POTASSIUM 3.7 MMOL/L (3.5-5.1); SODIUM 139 MMOL/L (136-145)
[2018-09-05] MEDS: PCA shift volume MISC SCH ×2 (07:00→19:16)
[2018-09-05 08:00] VITALS: BP 128/77
--- NOTE | 2018-09-05 08:00 | NUR ---
NURSE NOTES: Received report from Willian MACKAY. Patient is awake alert and oriented x4, no acute distress noted, reporting no pain. WIND FARM OPERATIONS MANAGER settings checked and verified against order. Ileo to gravity drainage, AMPARO PICC running IVF and TPN per order. Patient is using urinal to void and reports no difficulty with voiding. Updated on plan of care for the day. Side rails upx2, bed low and locked, call light in reach. Will continue to monitor.
--- NOTE | 2018-09-05 08:06 | NUR ---
HAND-OFF: Report given to THOMPSON Smalls. VS stable.
--- NOTE | 2018-09-05 10:09 | NUR ---
CASE MANAGEMENT: REVIEW 09/05/2018 SI:ENTEROSTOMY MALFUNCTION. T 98 hr 83 rr 16 b/p 128/77 sats 95% on RA GLU 147 CA 8.3 PHOS 2.3 IS:D W/ ELECTROLYTES @ 36 mL/HR PEPCID IV Q12H FLAGYL IV Q6H ZOSYN IV Q6H BOAT CAMP OPERATOR PER PARAMETERS TPN @ 89 mL/HR MED/SURG STATUS DCP: PATIENT TO BE DISCHARGED TO HOME ONCE MEDICALLY CLEARED. PLAN OF CARE: NPO TPN BOAT CAMP OPERATOR
--- NOTE | 2018-09-05 10:12 | NUR ---
INSURANCE NO B/AR INDICATION WHERE TO FAX CLINICALS
[2018-09-05] MEDS ORDERED: Fluconazole 100mg tab ORAL SCH (11:15)
--- NOTE | 2018-09-05 11:19 | General Progress Note ---
Progress Note Progress Note AVSS Feeling well. Urinary Bailey not draining well last night so removed and he is voiding normally. Coated tongue - thrush Abdomen soft, incision clean, stoma pink Urine 2700 BCIR fileo 740 CBC stable wnl Cr down 1.2 P 2.3 Mg 1.8 Imp. Stable with slowly resolving ileus Plan: continue npo, TPN, continuous drainage of Crowder pouch Mg and P infusions diflucan po x 1 and Nystatin oral susp d/c continuous infusion of WILDLIFE FORENSIC GENETICIST - continue demand dosing Wallace Valdez MD Sep 05, 2018 11:19
[2018-09-05] MEDS ORDERED: PCA HYDROmorphone 30mg/30ml Syr IV PRN (11:30)
[2018-09-05] MEDS ORDERED: Rate Change PCA 1 Each MISC PRN (11:30)
--- NOTE | 2018-09-05 11:34 | NUR ---
NURSE NOTES: Discontinued continuous rate of dilaudid on RELIGIOUS ACTIVITIES DIRECTOR. RELIGIOUS ACTIVITIES DIRECTOR is now bolus dose only. Witnessed by buck Weeks RN.
[2018-09-05 12:00] VITALS: BP 135/84
[2018-09-05] MEDS ORDERED: Potassium Phosphate 30 MM in NS 275 ML IV ONE (12:00)
[2018-09-05] MEDS: Nystatin Susp 500,000 units/5ml ORAL SCH ×3 (12:40→20:31)
[2018-09-05 16:00] VITALS: BP 127/77
--- NOTE | 2018-09-05 18:30 | NUR ---
NURSE NOTES: Ileo output for my shift: +820mL Total urine output: 1800mL Patient ambulated in hallway x2, tolerated ambulation well. Pain well managed with CYBER WORKFORCE DEVELOPER AND MANAGER. Patient had one episode of nausea that was relieved with Zofran, no emesis.
--- NOTE | 2018-09-05 19:19 | NUR ---
HAND-OFF: Report given to Willian MACKAY. Patient is in stable condition.
--- NOTE | 2018-09-05 19:20 | NUR ---
NURSE NOTES: Report taken from THOMPSON Smalls. Patient is awake and in bed, A&Ox4. No signs of distress on room air. Having very minimal complaint of pain, 2/, instructed use of CHILD DAYCARE WORKER pump if necessary during shift. Skin is c/d/i. PICC AMPARO c/d/i and both ports patent. Running D51/4NS+20KCl at 36mls/hr and TPN at 89mls/hr. Surgical dressing site c/d/i no bleeding. Ileo in place, c/d/i draining green/brown fluid. Patient has been ambulating without assist. No saucedo present. Bed in lowest position, call light within reach.
[2018-09-05 20:00] VITALS: BP 128/79
[2018-09-05] MEDS: FAT EMULSION 20% IV SCH (20:28)
[2018-09-05] MEDS: TPN IV SCH (20:28)
[2018-09-05] MEDS: Dyna-Hex 2% Top Sol 2oz TOPIC SCH (20:32)
[2018-09-05] MEDS: D5 1/4NS w/KCl 20mEq 1,000 ML IV SCH (23:56)
[2018-09-06] VITALS: BP 130/76
[2018-09-06] MEDS: Zoysn 3.37gm in NS 100ML IVPB SCH ×4 (00:07→18:03)
[2018-09-06] MEDS: Insulin NovoLOG Flexpen S/S (Mod) SUBQ SCH ×4 (00:10→18:00)
[2018-09-06 04:00] VITALS: BP 133/79
--- NOTE | 2018-09-06 06:47 | NUR ---
NURSE NOTES: Patient had a good night. Ambulated the unit x2. No complaints of pain or shortness of breath. Outputs below for PM shift. UO: 900cc Ileo: 425cc-80cc= 345cc
[2018-09-06] MEDS: PCA shift volume MISC SCH ×2 (07:06→19:00)
--- NOTE | 2018-09-06 07:12 | NUR ---
HAND-OFF: Report given to THOMPSON Ceron. Patient is awake and in bed. VS stable.
--- NOTE | 2018-09-06 07:27 | NUR ---
NURSE NOTES: Patient is in bed awake and able to verbalize needs. Stable. Denies severe pain, patient verbalized that he will use BONDERITE OPERATOR if needed. Patient encouraged to use call light. Surgical dressing clean, dry, and intact. Patient in bed in locked and lowest position with call light within reach. Will continue to monitor.
[2018-09-06 07:35] LABS: BASOPHILS % (AUTO) 0.7 % (0.0-2.0); HEMATOCRIT 47.5 % (42.0-52.0); HEMOGLOBIN 15.7 G/DL (14.2-18.0); LYMPHOCYTES % (AUTO) 17.7 % (20.0-45.0); MEAN CORPUSCULAR VOLUME 95 FL (80-99); MONOCYTES % (AUTO) 9.5 % (1.0-10.0); NEUTROPHILS % (AUTO) 59.2 % (45.0-75.0); PLATELET COUNT 205 K/UL (150-450); RED BLOOD COUNT 5.03 M/UL (4.70-6.10); RED CELL DISTRIBUTION WIDTH 12.1 % (11.6-14.8); WHITE BLOOD COUNT 8.1 K/UL (4.8-10.8)
[2018-09-06 08:00] VITALS: BP 128/81
[2018-09-06 08:06] LABS: ANION GAP 6 mmol/L (5-15); BLOOD UREA NITROGEN 11 mg/dL (7-18); CALCIUM 8.3 MG/DL (8.5-10.1); CARBON DIOXIDE 27 MMOL/L (21-32); CHLORIDE 106 MMOL/L (98-107); CREATININE 1.1 MG/DL (0.55-1.30); PHOSPHORUS 2.8 MG/DL (2.5-4.9); POTASSIUM 3.8 MMOL/L (3.5-5.1); SODIUM 139 MMOL/L (136-145)
[2018-09-06] MEDS: Nystatin Susp 500,000 units/5ml ORAL SCH ×4 (08:41→20:18)
--- NOTE | 2018-09-06 08:44 | General Progress Note ---
Progress Note Progress Note `AVSS Feels well - has intermittent nausea relieved by meds IV Abdomen mildly distended, incision clean Urine 2700 BCIR ileo 1165 CBC - stable/wnl Cr down 1.1 Phos 2.8 Mg 2.1 Imp. Slowly resolving ileus Plan: continue npo, tpn, data collection associate demand dosing only, Jacinto Lizarraga Don J. MD Sep 06, 2018 08:44
[2018-09-06] MEDS ORDERED: Fluconazole 100mg tab ORAL SCH (09:00)
--- NOTE | 2018-09-06 09:23 | NUR ---
RD ASSESSMENT & RECOMMENDATIONS SEE CARE ACTIVITY FOR COMPLETE ASSESSMENT DAILY ESTIMATED NEEDS: Needs based on Surgery/ 83.5 kg abw 25-30 kcals/kg 8769-1385 total kcals 1-2 g protein/kg 84-167 g total protein 25-30 mL/kg 0604-3858 total fluid mLs NUTRITION DIAGNOSIS: Altered GI function R/T h/o granulomatous colitis as evidenced by admitted for malfunctioning Crowder continent ileostomy, s/p exploratory laparotomy revision of continent pouch,incisional hernia repair, pt is NPO, on TPN. CURRENT DIET:NPO PO DIET RECOMMENDATIONS: DIET PER MD PARENTERAL NUTRITION RECOMMENDATIONS: D/AA Rate: 79 IL Rate: 10 Total Rate: 89 Volume: 2136 % Dextrose: 18 % AA: 5.5 Energy (kcals/kg): 2057 Protein (g/kg protein): 104 Nonprotein KCALS: 1640 GIR (mg CHO/kg/min): 2.8 % Fat KCALS: 23 NCP: N Ratio: 100 TPN Comment: *Maintain current TPN as ordered: D18% AA 5.5% @ 79ml/hr + IL20% @ 10ml/hr -> total of 89ml/hr, all 3:1 *TPN at goal will provide 99% est kcal and 100% est prot needs ADDITIONAL RECOMMENDATIONS: * Monitor lytes, BGs, LFTs daily w/ TPN * Standing wt for accurate CBW, rec weekly wt monitoring.
[2018-09-06 12:00] VITALS: BP 127/76
[2018-09-06 15:53] VITALS: BP 120/74
--- NOTE | 2018-09-06 16:05 | NUR ---
NURSE NOTES: Received report from THOMPSON Ceron. Patient a/o x4, in bed. Ileostomy drainage bag is patent. AMPARO PICC line is patent. Abdominal dressing dry/intact. Denies pain at this time. PICC line dressing dry/intact. Bed in lowest position, call light within reach. Will continue to monitor.
--- NOTE | 2018-09-06 16:07 | NUR ---
NURSE NOTES: Urine output: 1000cc. Ileo output: 25cc. Oral intake: 120cc water with morning medication. Surgical site is clean, dry, and intact.
--- NOTE | 2018-09-06 16:10 | NUR ---
HAND-OFF: Report given to Alberto MACKAY. Patient is stable.
--- NOTE | 2018-09-06 19:39 | NUR ---
HAND-OFF: Report given to THOMPSON Cortez. Patient is stable.
--- NOTE | 2018-09-06 19:45 | NUR ---
NURSE NOTES: receive a report from THOMPSON Dominguez. Done rounds. Will continue to monitor.
[2018-09-06 20:00] VITALS: BP 126/75
[2018-09-06] MEDS: D5 1/4NS w/KCl 20mEq 1,000 ML IV SCH (20:18)
[2018-09-06] MEDS: Dyna-Hex 2% Top Sol 2oz TOPIC SCH (20:18)
[2018-09-06] MEDS: FAT EMULSION 20% IV SCH (20:19)
[2018-09-06] MEDS: TPN IV SCH (20:19)
--- NOTE | 2018-09-06 20:30 | NUR ---
NURSE NOTES: Pt is awake and alert. Breathing is even and non labored. No acute distress. Op site is clear with ABD with paper tape. Pain is 2/10 and DIRECTOR NEWS pump on with Dilaudid, 0.2mg bolus/ 6 min locked / 6mg max. TPN 89ml/hr and D5 1/4 N/S KCL 20 36ml/hr are running via PICC on left upper arm. PICC site is clear with Tegarderm dressing on. On Nystatin swish and swallow and oral cavity is clear. RLQ ileostomy drained with greenish and brownish color and flush with N/S 20ml q 3hrs as ordered. Encourage ambulation and to use I/S. Leave call light within reach. Bed is locked and lowest position. Will continue to monitor.
[2018-09-07] VITALS: BP 120/78
[2018-09-07] MEDS: Insulin NovoLOG Flexpen S/S (Mod) SUBQ SCH ×4 (00:09→17:16)
[2018-09-07] MEDS: Zoysn 3.37gm in NS 100ML IVPB SCH ×4 (00:10→17:18)
[2018-09-07 04:00] VITALS: BP 143/81
[2018-09-07] MEDS: PCA shift volume MISC SCH (07:27)
--- NOTE | 2018-09-07 07:30 | NUR ---
HAND-OFF: Report given to THOMPSON Stratton. Done rounds.
--- NOTE | 2018-09-07 08:00 | NUR ---
NURSE NOTES: Received report from Diego MACKAY, pt a/a/o laying in bed with no signs of distress or other issues at this time. pt is on NPO except ice chips and meds. Ileo in place and draining well, total day care center director output: 595ml. total urine out out put: 1460ml. PICC line in place in the left upper arm running MANAGER OF SUSTAINABILITY Dilaudid and TPN@89ml/hr. surgical dressing dry and intact changed by Dr. Valdez. call light within reach, bed in lowest position, side rales up x2. I will f/u as needed.
[2018-09-07 08:31] VITALS: BP 127/83
[2018-09-07] MEDS: Nystatin Susp 500,000 units/5ml ORAL SCH ×4 (08:42→20:28)
[2018-09-07 09:05] LABS: ALANINE AMINOTRANSFERASE 20 U/L (12-78); ALBUMIN/GLOBULIN RATIO 0.6 (1.0-2.7); ALKALINE PHOSPHATASE 69 U/L (46-116); ANION GAP 12 mmol/L (5-15); ASPARTATE AMINO TRANSFERASE 23 U/L (15-37); BILIRUBIN,TOTAL 0.7 MG/DL (0.2-1.0); BLOOD UREA NITROGEN 12 mg/dL (7-18); CALCIUM 9.2 MG/DL (8.5-10.1); CARBON DIOXIDE 24 MMOL/L (21-32); CHLORIDE 105 MMOL/L (98-107); CREATININE 1.3 MG/DL (0.55-1.30); SODIUM 141 MMOL/L (136-145)
--- NOTE | 2018-09-07 09:28 | General Progress Note ---
Progress Note Progress Note AVSS Continues to feel well Abdomen soft, non-distended, healing nicely Urine 2810 BCIR ileo 1175 CMP - ok albumin 3.0 (was 2.4) Imp: Ileus resolved Plan: Clear liquid diet d/c GO GO DANCER and IV fluids - continue TPN Maintain continuous drainage of Continent Ileostomy pouch Tolar prn pain Wallace Valdez MD Sep 07, 2018 09:28
[2018-09-07 11:39] VITALS: BP 123/83
[2018-09-07] MEDS ORDERED: Tubing IV Secondary IV ONE (13:27)
[2018-09-07] MEDS ORDERED: NS Irrig 1000ml ONE (13:27)
[2018-09-07] MEDS ORDERED: NS 500ML ONE (13:27)
[2018-09-07 16:11] VITALS: BP 131/75
[2018-09-07] MEDS: HYDROcodone/Acetamin 10/325 tab ORAL PRN (17:19)
--- NOTE | 2018-09-07 17:30 | NUR ---
NURSE NOTES: during rounds pt complained of "some abd pain" he also stated that "his body doesn't like clear liquid diets" pt request pain medication, RN will medicated as indicated by MD. I will f/u as needed. - Pt also stated that he receives B-12 shoot of 1,000 units every week and he would like to continue during this hospitalization. RN will endorse to incoming nurse as well as MD.
--- NOTE | 2018-09-07 18:30 | NUR ---
NURSE NOTES: 1800: After reassessed pt for pain, patient stated that he would like to get something for cramping. RN will give Ativan SL as indicated by . 1830. pt stated that cramping have subside, pain level 2/10. I will f/u as needed.
--- NOTE | 2018-09-07 19:32 | NUR ---
HAND-OFF: Report given to Diego RN, pt in stable condition. incoming nurse will follow up with Dr. Valdez for vitamin B-12 shoot due tomorrow morning. Total I&O's total ileo: 80-9779=956hq total urine: 1080ml total oral input: 1416ml Breakfast, lunch and diner: 100% (clear liquid diet)
--- NOTE | 2018-09-07 19:40 | NUR ---
NURSE NOTES: Receive a report from THOMPSON Stratton. Done round. Will continue to monitor.
[2018-09-07 20:00] VITALS: BP 123/80
[2018-09-07] MEDS: FAT EMULSION 20% IV SCH (20:28)
[2018-09-07] MEDS: Dyna-Hex 2% Top Sol 2oz TOPIC SCH (20:28)
[2018-09-07] MEDS: TPN IV SCH (20:28)
--- NOTE | 2018-09-07 21:00 | NUR ---
NURSE NOTES: Pt is awake and alert, watching TV in bed. No acute distress noted. No noted op site pain complaint since taking [place] @ 1720. Keep dressing clear. Noted patent ileostomy drainage with brownish & greenish color. Done irrigation with NS 20ml. PICC site is clear and patent with infusing TPN 89ml/hr. Mouth wash is done with Nystatin without showing oral ulcer. Call light within reach. Bed is locked and lowest. Will continue to monitor.
[2018-09-08 00:10] VITALS: BP 126/83
[2018-09-08] MEDS: Zoysn 3.37gm in NS 100ML IVPB SCH ×2 (00:10→06:05)
[2018-09-08 04:15] VITALS: BP 118/70
[2018-09-08] MEDS: HYDROcodone/Acetamin 10/325 tab ORAL PRN ×2 (04:21→17:00)
[2018-09-08 04:58] LABS: BASOPHILS % (AUTO) 1.1 % (0.0-2.0); EOSINOPHILS % (AUTO) 13.6 % (0.0-3.0); HEMATOCRIT 51.4 % (42.0-52.0); LYMPHOCYTES % (AUTO) 17.1 % (20.0-45.0); MEAN CORPUSCULAR VOLUME 93 FL (80-99); MONOCYTES % (AUTO) 10.4 % (1.0-10.0); NEUTROPHILS % (AUTO) 57.8 % (45.0-75.0); PLATELET COUNT 220 K/UL (150-450); RED BLOOD COUNT 5.52 M/UL (4.70-6.10); RED CELL DISTRIBUTION WIDTH 11.9 % (11.6-14.8); WHITE BLOOD COUNT 8.9 K/UL (4.8-10.8)
[2018-09-08 05:02] LABS: ANION GAP 10 mmol/L (5-15); BLOOD UREA NITROGEN 14 mg/dL (7-18); CALCIUM 8.9 MG/DL (8.5-10.1); CARBON DIOXIDE 24 MMOL/L (21-32); CHLORIDE 103 MMOL/L (98-107); CREATININE 1.3 MG/DL (0.55-1.30); PHOSPHORUS 3.5 MG/DL (2.5-4.9); SODIUM 137 MMOL/L (136-145)
--- NOTE | 2018-09-08 06:00 | NUR ---
NURSE NOTES: Pt is awake and pain relieved. Empty Ileostomy bag and pure output is 820ml. Pt is clear liquid diet and will give Ativan 1mg SL for muscle spasm before meal. Will continue to monitor.
[2018-09-08] MEDS: Insulin NovoLOG Flexpen S/S (Mod) SUBQ SCH ×5 (06:07→22:53)
--- NOTE | 2018-09-08 06:45 | NUR ---
NURSE NOTES: Contacted Dr. Valdez regarding PICC line's red port not flushing; meanwhile, started IV on right hand. Will await call back.
--- NOTE | 2018-09-08 07:30 | NUR ---
HAND-OFF: Report given to THOMPSON Stratton. Done round.
--- NOTE | 2018-09-08 07:45 | NUR ---
NURSE NOTES: Endorsed to morning shift RN to f/u on PICC line's red port not flushing with Dr. Valdez.
[2018-09-08 08:00] VITALS: BP 104/71
--- NOTE | 2018-09-08 08:00 | NUR ---
NURSE NOTES: Received report from Diego MACKAY, pt a/a/o x4 laying in bed with no signs of distress or other issues at this time. Per report one PICC port is not flushing per report Dr. Valdez is aware. nightclub manager nurse also started an additional IV site in the right FA gauge#22. RN will notified MD once he comes. surgical dressing dry and intact. Ileo bag in place draining well, total nightclub manager out put: 820ml. total urine out put: 900ml. call light within reach. bed in lowest position. side rales up x2. I will f/u as needed.
[2018-09-08] MEDS ORDERED: Vitamin B12 1000mcg/ml Inj IM ONE (09:00)
[2018-09-08] MEDS: Nystatin Susp 500,000 units/5ml ORAL SCH ×4 (09:10→21:20)
--- NOTE | 2018-09-08 10:20 | General Progress Note ---
Progress Note Progress Note AVSS . Had cramping with clear liquid diet, better this AM Abdomen soft, incision clean Urine 1979 BCIR ileo 1789 Labs all satisfactory Imp.Improving Plan: Continue clear liquids and TPN D/C Zosyn change Pepcid and Zofran to po maintain continuous drainage of Crowder Pouch Wallace Valdez MD Sep 08, 2018 10:20
[2018-09-08] MEDS ORDERED: Dextrose 10% 1,000 ML IV PRN (11:30)
[2018-09-08 12:00] VITALS: BP 117/74
--- NOTE | 2018-09-08 12:12 | NUR ---
CASE MANAGEMENT: REVIEW 09/06/2018 SI:ENTEROSTOMY MALFUNCTION. T 98 hr 83 rr 16 b/p 128/77 sats 95% on RA GLU 147 CA 8.3 PHOS 2.3 IS:D W/ ELECTROLYTES @ 36 mL/HR PEPCID IV Q12H FLAGYL IV Q6H ZOSYN IV Q6H RUBBER MOLD MAKER PER PARAMETERS TPN @ 89 mL/HR MED/SURG STATUS DCP: PATIENT TO BE DISCHARGED TO HOME ONCE MEDICALLY CLEARED. PLAN OF CARE: NPO TPN RUBBER MOLD MAKER 09/07/2018 SI:ENTEROSTOMY MALFUNCTION. T 97.5 HR 82 RR 18 B/P 120/78 SATS 95% ON RA WNL IS:D W/ ELECTROLYTES @ 36 mL/HR PEPCID IV Q12H FLAGYL IV Q6H ZOSYN IV Q6H RUBBER MOLD MAKER PER PARAMETERS TPN @ 89 mL/HR MED/SURG STATUS DCP: PATIENT TO BE DISCHARGED TO HOME ONCE MEDICALLY CLEARED. PLAN OF CARE: NPO TPN RUBBER MOLD MAKER 09/08/2018 SI:ENTEROSTOMY MALFUNCTION. T 98.6 HR 87 RR 20 B/P 104/71 SATS 95% ON RA GLU 131 IS:INSULIN ASPART SUBQ Q6H RUBBER MOLD MAKER PER PARAMETERS TPN @ 89 mL/HR NYSTATIN PO QID VITAMIN K SUBQ QWEEK MED/SURG STATUS DCP: PATIENT TO BE DISCHARGED TO HOME ONCE MEDICALLY CLEARED. PLAN OF CARE: NPO TPN RUBBER MOLD MAKER
--- NOTE | 2018-09-08 12:20 | NUR ---
INSURANCE NO B/AR INDICATION WHERE TO FAX CLINICALS Addendum: 09/08/18 at 1222 by Ngoc Chris CM PER ADMITTING FAX CLINICALS TO - [phone]
[2018-09-08 16:00] VITALS: BP 116/67
--- NOTE | 2018-09-08 19:42 | NUR ---
HAND-OFF: Report given to Carlo Fofana pt in stable condition. I&0's total ileo: 80-4334=3010gy total urine: 1100ml Total oral intake: 1525ml Breakfast, lunch and diner: 100% (clear liquid diet)
[2018-09-08 20:00] VITALS: BP 112/74
[2018-09-08] MEDS: FAT EMULSION 20% IV SCH (20:00)
[2018-09-08] MEDS: Dyna-Hex 2% Top Sol 2oz TOPIC SCH (20:00)
[2018-09-08] MEDS: TPN IV SCH (20:00)
--- NOTE | 2018-09-08 20:00 | NUR ---
NURSE NOTES: Patient in bed awake and oriented. VSS. No SOB noted. PICC line flushed. Ileo flushed, draining well. Patient has no pain. Dressing is clean and intact. Needs attended. Due meds given. In stable condition.
[2018-09-09] VITALS: BP 117/70
[2018-09-09 04:00] VITALS: BP 126/75
[2018-09-09] MEDS: Insulin NovoLOG Flexpen S/S (Mod) SUBQ SCH ×4 (05:29→23:59)
[2018-09-09] MEDS: HYDROcodone/Acetamin 10/325 tab ORAL PRN ×2 (05:29→22:00)
[2018-09-09 08:00] VITALS: BP 114/72
--- NOTE | 2018-09-09 08:00 | NUR ---
NURSE NOTES: Received report from Carlo Fofana pt a/a/o x4 laying in bed with no signs of distress or other issues at this time. surgical dressing dry and intact. ileo bag draining well, total material handler 1st shift out out: 750ml. total urine out put: 900ml. PICC line in the right upper arm running TPN at 89ml/hr and TKO @10ml/hr. call light within reach, bed in lowest position. side rales up x2. I will f/u as needed.
[2018-09-09] MEDS: Nystatin Susp 500,000 units/5ml ORAL SCH ×4 (08:47→20:54)
--- NOTE | 2018-09-09 10:30 | NUR ---
CASE MANAGEMENT: REVIEW 09/09/2018 SI:ENTEROSTOMY MALFUNCTION. T 98.3 HR 78 RR 18 B/P 126/75 SATS 97% ON RA NO LABS TODAY IS:INSULIN ASPART SUBQ Q6H TPN @ 89 mL/HR NYSTATIN PO QID VITAMIN K SUBQ QWEEK PEPCID PO BID MED/SURG STATUS DCP: PATIENT TO BE DISCHARGED TO HOME ONCE MEDICALLY CLEARED. PLAN OF CARE: BCIR LOW RESIDUE DIET TPN "maintain continuous drainage of Crowder Pouch"
--- NOTE | 2018-09-09 10:36 | NUR ---
INSURANCE PER ADMITTING FAX CLINICALS TO - [phone] Addendum: 09/09/18 at 1438 by Ngoc Chris CM PROGRESS NOTES FAXED TO INSURANCE FOR REVIEW
[2018-09-09 12:00] VITALS: BP 115/76
--- NOTE | 2018-09-09 13:11 | General Progress Note ---
Progress Note Progress Note AVSS doing well on clear liquids Abdomen soft, healing nicely Urine 1999 BCIR ileo 182 Imp. Improved Plan: BCIR low residue diet Continue TPN but decrease rate maintain continuous drainage of Crowder Pouch Wallace Valdez MD Sep 09, 2018 13:11
--- NOTE | 2018-09-09 13:16 | NUR ---
RD ASSESSMENT & RECOMMENDATIONS SEE CARE ACTIVITY FOR COMPLETE ASSESSMENT DAILY ESTIMATED NEEDS: Needs based on Surgery/ 83.5 kg abw 25-30 kcals/kg 2161-0181 total kcals 1-2 g protein/kg 84-167 g total protein 25-30 mL/kg 7002-7611 total fluid mLs NUTRITION DIAGNOSIS: Altered GI function R/T h/o granulomatous colitis as evidenced by admitted for malfunctioning Crowder continent ileostomy, s/p exploratory laparotomy revision of continent pouch,incisional hernia repair, TPN tapering down, diet advanced to BCIR low fiber/ low residue w/ good po intake. CURRENT DIET:-->> NOW BCIR BCIR as per MD PARENTERAL NUTRITION RECOMMENDATIONS: D/AA Rate: 79 IL Rate: 10 Total Rate: 89 Volume: 2136 % Dextrose: 18 % AA: 5.5 Energy (kcals/kg): 2057 Protein (g/kg protein): 104 Nonprotein KCALS: 1640 GIR (mg CHO/kg/min): 2.8 % Fat KCALS: 23 NCP: N Ratio: 100 TPN Comment: *D18% AA 5.5% @ 79ml/hr + IL20% @ 10ml/hr -> TPN NOW LOWERED TO 70ML/HR, CONTINUE TO LOWER BY 20ML/HR QDAILY UNTIL BAG IS FINISHED. * Oral diet now advanced w/ good tolerance. ADDITIONAL RECOMMENDATIONS: * Monitor lytes, BGs, LFTs daily w/ TPN * Standing wt for accurate CBW, rec weekly wt monitoring. * Monitor tolerance to advanced BCIR diet.
[2018-09-09 16:00] VITALS: BP 129/96
--- NOTE | 2018-09-09 19:19 | NUR ---
HAND-OFF: Report given to Carlo Fofana pt in stable condition. - pt ambulating around the unit during my shift x3 Total I&O's total ileo: [id number] total urine: 850 ml total oral intake: 1180ml
--- NOTE | 2018-09-09 19:52 | NUR ---
NURSE NOTES: Patient ambulating in the hallway. VSS. No SOB noted. Ileo flushed. PICC line flushed running TPN patient tolerating fluids well. Dressing is clean and dry. No N&V. Needs attended. In stable condition.
[2018-09-09 20:00] VITALS: BP 115/85
[2018-09-09] MEDS: Dyna-Hex 2% Top Sol 2oz TOPIC SCH (20:00)
[2018-09-09] MEDS ORDERED: FAT EMULSION 20% IV SCH (20:00)
[2018-09-09] MEDS ORDERED: TPN IV SCH (20:00)
[2018-09-10] VITALS: BP 115/74
[2018-09-10 04:00] VITALS: BP 122/80
[2018-09-10 05:04] LABS: ALANINE AMINOTRANSFERASE 31 U/L (12-78); ALBUMIN/GLOBULIN RATIO 0.7 (1.0-2.7); ALKALINE PHOSPHATASE 80 U/L (46-116); ANION GAP 10 mmol/L (5-15); ASPARTATE AMINO TRANSFERASE 27 U/L (15-37); BILIRUBIN,TOTAL 0.4 MG/DL (0.2-1.0); BLOOD UREA NITROGEN 23 mg/dL (7-18); CALCIUM 8.9 MG/DL (8.5-10.1); CARBON DIOXIDE 24 MMOL/L (21-32); CHLORIDE 104 MMOL/L (98-107); CREATININE 1.3 MG/DL (0.55-1.30); SODIUM 138 MMOL/L (136-145)
[2018-09-10 05:10] LABS: BASOPHILS % (AUTO) 0.8 % (0.0-2.0); EOSINOPHILS % (AUTO) 10.4 % (0.0-3.0); HEMATOCRIT 53.1 % (42.0-52.0); HEMOGLOBIN 17.2 G/DL (14.2-18.0); LYMPHOCYTES % (AUTO) 23.3 % (20.0-45.0); MEAN CORPUSCULAR VOLUME 93 FL (80-99); MONOCYTES % (AUTO) 11.1 % (1.0-10.0); NEUTROPHILS % (AUTO) 54.4 % (45.0-75.0); PLATELET COUNT 220 K/UL (150-450); RED BLOOD COUNT 5.69 M/UL (4.70-6.10); WHITE BLOOD COUNT 10.5 K/UL (4.8-10.8)
[2018-09-10] MEDS: Insulin NovoLOG Flexpen S/S (Mod) SUBQ SCH ×3 (06:00→17:16)
--- NOTE | 2018-09-10 07:55 | General Progress Note ---
Progress Note Progress Note AVSS Having moderate cramping though eating BCIR diet well. Still with excessive and watery ileostomy output ABdomen soft, healing nicely Urine 1849 BCIR ileo 1929 Labs ok with increased BUN Imp. Bacterial overgrowth enteritis Plan; stool for C. Difficile toxin start Flagyl 500mg po TID d/c TPN today may need Cipro po in addition to Flagyl pending C.diff result maintain continuous drainage of BCIR Diflucan po daily for persistent Thrush Wallace Valdez MD Sep 10, 2018 07:55
[2018-09-10 08:21] VITALS: BP 108/69
[2018-09-10] MEDS ORDERED: Phytonadione 10 mg/mL 1ml amp SUBQ SCH (09:00)
[2018-09-10] MEDS: metroNIDAZOLE 500mg tab ORAL SCH ×3 (09:11→20:50)
[2018-09-10] MEDS: Fluconazole 100mg tab ORAL SCH (09:11)
[2018-09-10] MEDS: Nystatin Susp 500,000 units/5ml ORAL SCH ×4 (09:12→20:44)
[2018-09-10] MEDS: HYDROcodone/Acetamin 10/325 tab ORAL PRN ×2 (09:16→20:50)
--- NOTE | 2018-09-10 09:30 | NUR ---
NURSE NOTES: During shift change patient alert oriented with out no distress, call light with in reach, bed on low position locked, reported pain 6/10, medication given, Ileo draining brown output, stool sample collected and sent to lab. will continue to monitor.
[2018-09-10 12:48] VITALS: BP 112/96
--- NOTE | 2018-09-10 13:57 | NUR ---
*-* INSURANCE *-* ALL CLINICALS HAVE BEEN FAXED TO: PER ADMITTING FAX CLINICALS TO f- [phone]
[2018-09-10 16:11] VITALS: BP 117/71
--- NOTE | 2018-09-10 17:00 | NUR ---
NURSE NOTES: Pt. reported felt discomfort yesterday after a large meal and consumed only 50% of breakfast, and 75% of lunch and able to eat 100% dinner no discomfort reported except minimal gas after dinner due to cheese per pt.
--- NOTE | 2018-09-10 17:29 | NUR ---
CASE MANAGEMENT: REVIEW 09/10/2018 SI:ENTEROSTOMY MALFUNCTION. T 98.1 HR 81 RR 18 B/P 122/80 SATS 96% ON RA BUN 23 GLU 129 IS:INSULIN ASPART SUBQ Q6H TPN @ 89 mL/HR NYSTATIN PO QID VITAMIN K SUBQ QWEEK PEPCID PO BID DIFLUCAN PO QD FLAGYL PO Q8H MED/SURG STATUS DCP: PATIENT TO BE DISCHARGED TO HOME ONCE MEDICALLY CLEARED. PLAN OF CARE PER MD: stool for C. Difficile toxin start Flagyl 500mg po TID d/c TPN today may need Cipro po in addition to Flagyl pending C.diff result maintain continuous drainage of BCIR Diflucan po daily for persistent Thrush
--- NOTE | 2018-09-10 18:56 | NUR ---
NURSE NOTES: Patient remained safe during my shift, no discomfort or cramping reported except morning, pain medication given once during my shift, pt. reported minimal bloating after eating dinner RN noted air in the drainage bag as well, patient ambulated during my shift frequently no difficulties reported, TPN reduced as ordered to 30ml an hr will be off at 2100. will endorse for child care specialist nurse to follow up. Ileo out put consistency normal.
--- NOTE | 2018-09-10 19:30 | NUR ---
NURSE NOTES: Receive a report from THOMPSON Weeks. Done rounds. Pt is awake and alert. No acute distress noted. Breathing is even and non labored. Ileostomy drained with greenish color. Keep dressing dry and clean. Will continue to monitor.
[2018-09-10] MEDS ORDERED: NS Irrig 1000ml ONE (19:31)
--- NOTE | 2018-09-10 19:42 | NUR ---
HAND-OFF: Report given to THOMPSON Cortez patient stable condition endorsed to discontinue TPN at 2100.
[2018-09-10 20:30] VITALS: BP 110/74
[2018-09-10] MEDS: Dyna-Hex 2% Top Sol 2oz TOPIC SCH (20:44)
--- NOTE | 2018-09-10 21:00 | NUR ---
NURSE NOTES: Pt is awake and alert but complains for abdomen pain /10. Noted increased bowel sounds on left side. Given prn [place] 10/325mg 1 t po medication. Waiting for stool result. Will continue to monitor pain. Discontinue TPN 30ml/hr as ordered. One of lumens from PICC remain KVO with N/S 10ml/hr. PICC site clear without s/s of infections. Leave call light within reach. Will continue to monitor.
[2018-09-11] VITALS: BP 110/70
[2018-09-11 04:00] VITALS: BP 116/77
[2018-09-11] MEDS: Insulin NovoLOG Flexpen S/S (Mod) SUBQ SCH ×4 (06:00→18:00)
--- NOTE | 2018-09-11 06:00 | NUR ---
NURSE NOTES: Pt got some sleep. Pain is tolerated. Refuses to take more pain medication but still feel bloating. Sticky liquid type greenish/brownish drainage drained via ileostomy with 20ml N/S irrigation q 3hrs. Total amount 6pm to 6 am: 770 ml. BS checked as 97mg/dl. Will continue to monitor.
[2018-09-11] MEDS: metroNIDAZOLE 500mg tab ORAL SCH ×3 (06:11→20:55)
--- NOTE | 2018-09-11 07:30 | NUR ---
NURSE NOTES: Patient is in bed awake and able to verbalize needs. Stable. Denies pain or SOB. Patient encouraged to use call light for assistance, verbalized understanding. Will monitor output throughout shift. Patient is in bed in locked and lowest position with call light within reach. Will continue to monitor.
--- NOTE | 2018-09-11 07:30 | NUR ---
HAND-OFF: Report given to THOMPSON Ceron. Done round.
--- NOTE | 2018-09-11 07:31 | General Progress Note ---
Progress Note Progress Note AVSS still with intermittent cramping and eating less aBdomen soft, healing well Urinej 1490 BCIR ileo 1690 thicker effluent C.diff still pending Imp. Cramping pains - now on Flagyl po PLan: Maintain continuous drainage of BCIR d/c TPN and IV fluids f/u labs Wallace Valdez MD Sep 11, 2018 07:31
[2018-09-11 08:00] VITALS: BP 114/73
[2018-09-11] MEDS: Fluconazole 100mg tab ORAL SCH (09:24)
[2018-09-11] MEDS: Nystatin Susp 500,000 units/5ml ORAL SCH ×4 (09:24→20:55)
[2018-09-11 12:00] VITALS: BP 133/86
[2018-09-11] MEDS: Ascorbic Acid 500mg tab ORAL PRN (12:20)
--- NOTE | 2018-09-11 14:47 | NUR ---
CASE MANAGEMENT: REVIEW 09/11/2018 SI:ENTEROSTOMY MALFUNCTION. T 98.8 HR 70 RR 20 B/P 133/86 SATS 99% ON RA NO LABS TODAY IS:INSULIN ASPART SUBQ Q6H NYSTATIN PO QID PEPCID PO BID FLAGYL PO Q8H DIFLUCAN PO QD CHLORHEXIDINE TOP QD MED/SURG STATUS DCP: PATIENT TO BE DISCHARGED TO HOME ONCE MEDICALLY CLEARED. PLAN OF CARE PER MD: Maintain continuous drainage of BCIR d/c TPN and IV fluids
--- NOTE | 2018-09-11 14:53 | NUR ---
INSURANCE PER ADMITTING FAX CLINICALS TO - [phone]
[2018-09-11 16:00] VITALS: BP 133/86
--- NOTE | 2018-09-11 19:30 | NUR ---
Receive a report from THOMPSON Ceron. Pt is ambulating unit. Denies pain but feels bloated. Will continue to monitor.
--- NOTE | 2018-09-11 19:35 | NUR ---
HAND-OFF: Report given to Diego MACKAY. patient is stable.
[2018-09-11 20:00] VITALS: BP 117/73
[2018-09-11] MEDS: Dyna-Hex 2% Top Sol 2oz TOPIC SCH (20:55)
--- NOTE | 2018-09-11 21:00 | NUR ---
NURSE NOTES: Pt is awake and alert. Came back from ambulation. No acute distress noted but continue to have bloated sensation. Greenish color drainage with food residue patent via ileostomy with 20ml N/S irrigation. Bowel sound on left side still increased. Refuses to take pain medication for now. Will continue to monitor.
--- NOTE | 2018-09-11 22:30 | NUR ---
NURSE NOTES: Inform Dr. Valdez for not flushing PICC lines. Receive orders to remove PICC, to discontinue fluid for KVO and BS check Q 6hrs. Order noted and carried out. Explain pt for PICC removal. Done PICC removal smoothly at bedside. No bleeding signs nor infection signs noted. Removed PICC line intact. Will continue to monitor.
--- NOTE | 2018-09-11 23:00 | NUR ---
NURSE NOTES: No noted bleeding signs on PICC removal site. Pt still feels bloated and uncomfortable abdomen. Well draining greenish drainage via Ileostomy but ask for another flushing. Done prn N/S 20ml flushing as ordered. Will continue to monitor.
[2018-09-12] VITALS: BP 111/70
[2018-09-12] MEDS: HYDROcodone/Acetamin 10/325 tab ORAL PRN (00:03)
[2018-09-12 04:00] VITALS: BP 109/74
[2018-09-12] MEDS: metroNIDAZOLE 500mg tab ORAL SCH ×3 (05:55→21:05)
--- NOTE | 2018-09-12 06:00 | NUR ---
NURSE NOTES: Pt states bloating feeling gets better. Watery brownish-greenish drainage via Ileostomy patent. Bag change done by pt's request. PICC removal site is clear. Will continue to monitor.
[2018-09-12 06:11] LABS: EOSINOPHILS % (AUTO) 10.2 % (0.0-3.0); HEMATOCRIT 51.8 % (42.0-52.0); HEMOGLOBIN 16.8 G/DL (14.2-18.0); LYMPHOCYTES % (AUTO) 23.2 % (20.0-45.0); MEAN CORPUSCULAR VOLUME 94 FL (80-99); NEUTROPHILS % (AUTO) 55.5 % (45.0-75.0); PLATELET COUNT 224 K/UL (150-450); RED BLOOD COUNT 5.51 M/UL (4.70-6.10); WHITE BLOOD COUNT 10.3 K/UL (4.8-10.8)
[2018-09-12 07:00] LABS: ALANINE AMINOTRANSFERASE 31 U/L (12-78); ALBUMIN 3.2 G/DL (3.4-5.0); ALBUMIN/GLOBULIN RATIO 0.8 (1.0-2.7); ALKALINE PHOSPHATASE 78 U/L (46-116); ANION GAP 10 mmol/L (5-15); ASPARTATE AMINO TRANSFERASE 25 U/L (15-37); BILIRUBIN,TOTAL 0.6 MG/DL (0.2-1.0); BLOOD UREA NITROGEN 21 mg/dL (7-18); CALCIUM 9.2 MG/DL (8.5-10.1); CARBON DIOXIDE 24 MMOL/L (21-32); CHLORIDE 104 MMOL/L (98-107); CREATININE 1.3 MG/DL (0.55-1.30); POTASSIUM 3.9 MMOL/L (3.5-5.1); SODIUM 138 MMOL/L (136-145)
--- NOTE | 2018-09-12 07:10 | NUR ---
HAND-OFF: Report given to THOMPSON Ceron.
--- NOTE | 2018-09-12 07:30 | NUR ---
NURSE NOTES: Patient is in bed awake and able to verbalize needs. Stable. Denies pain. Patient stated that he would feel better if he had better sleep last night. Will encourage patient to rest throughout shift. Ileo draining into bag. Patient is in bed in locked and lowest position. Will continue to monitor.
[2018-09-12 08:00] VITALS: BP 118/79
[2018-09-12] MEDS: Nystatin Susp 500,000 units/5ml ORAL SCH (10:15)
[2018-09-12] MEDS: Fluconazole 100mg tab ORAL SCH (10:15)
--- NOTE | 2018-09-12 11:07 | NUR ---
CASE MANAGEMENT: REVIEW 09/12/2018 SI:ENTEROSTOMY MALFUNCTION. T 98.2 HR 84 RR 18 B/P 109/74 SATS 96% ON RA BUN 21 IS:INSULIN ASPART SUBQ Q6H NYSTATIN PO QID PEPCID PO BID FLAGYL PO Q8H DIFLUCAN PO QD CHLORHEXIDINE TOP QD MED/SURG STATUS DCP: PATIENT TO BE DISCHARGED TO HOME ONCE MEDICALLY CLEARED. PLAN OF CARE PER MD: Maintain continuous drainage of BCIR
--- NOTE | 2018-09-12 11:09 | NUR ---
INSURANCE PER ADMITTING FAX CLINICALS TO - [phone]
[2018-09-12 12:00] VITALS: BP 119/81
--- NOTE | 2018-09-12 12:08 | General Progress Note ---
Progress Note Progress Note AVSS Still c/o bloating and feels like pouchitis despite flagyl po. C.diff toxin negative. Passed some gas around the BCIR ileo catheter abdomen soft, 1/3 kat removed Urine 1215 BCIR ileo 2170 still watery Labs all satisfactory with albumin up to 3.2 Imp: persistent bacterial overgrowth enteritis high volume ileostomy output Plan: Add Cipro po to Flagyl po Maintain continuous drainage of Crowder pouch Wallace Valdez MD Sep 12, 2018 12:08
[2018-09-12] MEDS ORDERED: Ciprofloxacin 500mg tab ORAL SCH ×2 (12:30→21:00)
[2018-09-12 16:00] VITALS: BP 137/83
--- NOTE | 2018-09-12 19:10 | NUR ---
HAND-OFF: Report given to Claudine MACKAY. Patient is stable.
--- NOTE | 2018-09-12 19:25 | NUR ---
NURSE NOTES: Received report & pt from THOMPSON Ceron. Pt lying in bed, a&ox4, in room air. No s/s of acute distress & no c/o pain at this time. Ileo cath intact & draining to gravity. Surgical dressing C/D/I. Abdominal drsg to be changed QHS as ordered & PRN & pt aware. No IV access noted. Bed in lowest position, call light within reach. Will continue to monitor.
--- NOTE | 2018-09-12 19:45 | NUR ---
NURSE NOTES: Pt ambulating in hallway; steady gait. No distress noted.
[2018-09-12 20:00] VITALS: BP 111/64
--- NOTE | 2018-09-12 21:00 | NUR ---
NURSE NOTES: Changed abdominal dressing as ordered by .
[2018-09-13] VITALS: BP 120/77
[2018-09-13 04:00] VITALS: BP 119/78
[2018-09-13] MEDS: metroNIDAZOLE 500mg tab ORAL SCH ×3 (06:03→21:53)
--- NOTE | 2018-09-13 07:30 | NUR ---
HAND-OFF: Report given to THOMPSON Yanes. Pt in stable condition. Rounds done.
--- NOTE | 2018-09-13 07:35 | NUR ---
NURSE NOTES: Patient lying in bed awake. No complain of pain or distress at this time. Skin intact and dry. Surgical dressing stained and will change as ordered. Ileostomy drainage bag patent and draining well. Bed lowest position. Call light within reach. Will continue to monitor.
[2018-09-13 08:00] VITALS: BP 119/72
[2018-09-13] MEDS: Ciprofloxacin 500mg tab ORAL SCH ×2 (08:21→20:44)
[2018-09-13] MEDS: Fluconazole 100mg tab ORAL SCH (08:22)
--- NOTE | 2018-09-13 09:18 | General Progress Note ---
Progress Note Progress Note AVSS Since Cipro po added to flagyl po the gas pains/cramping has resolved. Still with high volume output - ? related to pushing fluid intake aBdomen soft, flat, healing nicely Stoma RLQ with no incontinence now Urine 1225 concentrated somewhat BCIR ileo 5 Imp: Resolving bacterial overgrowth enteritis Plan: Maintain continuous drainage of Crowder Pouch again today Avoid excessive fluid intake continue strict I&O and f/u labs in Wallace James MD Sep 13, 2018 09:18
[2018-09-13] MEDS ORDERED: NS Irrig 1000ml ONE (09:19)
[2018-09-13] MEDS ORDERED: NS 500ML ONE (09:19)
[2018-09-13 12:00] VITALS: BP 119/78
--- NOTE | 2018-09-13 14:00 | NUR ---
NURSE NOTES: Patient complained something leaking on ileostomy site. Checked ileostomy site and dressing soiled. Cleaned with NS and changed ileostomy dressing as ordered. No output from ileostomy catheter. Flushed ileostomy catheter with extra flush. Ileostomy started to drain again. Called and left massage to and waiting for call back. Will continue to monitor.
--- NOTE | 2018-09-13 14:09 | NUR ---
CASE MANAGEMENT: REVIEW 09/13/2018 SI:ENTEROSTOMY MALFUNCTION. T 97.9 HR 78 RR 20 B/P 119/78 SATS 96% ON RA NO LABS TODAY IS:INSULIN ASPART SUBQ Q6H NYSTATIN PO QID PEPCID PO BID FLAGYL PO Q8H DIFLUCAN PO QD CHLORHEXIDINE TOP QD MED/SURG STATUS DCP: PATIENT TO BE DISCHARGED TO HOME ONCE MEDICALLY CLEARED. PLAN OF CARE PER MD: Maintain continuous drainage of BCIR
--- NOTE | 2018-09-13 14:58 | NUR ---
NURSE NOTES: flush additional after each meal.
[2018-09-13 16:00] VITALS: BP 117/75
[2018-09-13] MEDS: HYDROcodone/Acetamin 10/325 tab ORAL PRN (18:46)
--- NOTE | 2018-09-13 19:15 | NUR ---
NURSE NOTES: Received report from THOMPSON Yanes and rounds made. Received pt in bed, AOX4, pain level 2/10, no distress noted. Surgical site C/D/I. Ileo to drainage bag. Safety measures maintained. Bed in lowest position and locked, side rails up x 2, call light within reach. Will continue to monitor.
--- NOTE | 2018-09-13 19:30 | NUR ---
HAND-OFF: Report given to Carlo MACKAY. Patient in stable condition.
[2018-09-13 20:00] VITALS: BP 121/80
[2018-09-14] VITALS: BP 109/68
[2018-09-14 05:30] VITALS: BP 107/71
[2018-09-14] MEDS: metroNIDAZOLE 500mg tab ORAL SCH (05:44)
--- NOTE | 2018-09-14 07:27 | NUR ---
HAND-OFF: Report given to THOMPSON Stratton. Pt in stable condition.
[2018-09-14 07:42] LABS: BASOPHILS % (AUTO) 1.3 % (0.0-2.0); EOSINOPHILS % (AUTO) 10.9 % (0.0-3.0); HEMATOCRIT 55.2 % (42.0-52.0); LYMPHOCYTES % (AUTO) 19.3 % (20.0-45.0); MEAN CORPUSCULAR VOLUME 93 FL (80-99); MONOCYTES % (AUTO) 9.2 % (1.0-10.0); NEUTROPHILS % (AUTO) 59.3 % (45.0-75.0); PLATELET COUNT 258 K/UL (150-450); RED BLOOD COUNT 5.93 M/UL (4.70-6.10); RED CELL DISTRIBUTION WIDTH 11.9 % (11.6-14.8); WHITE BLOOD COUNT 11.5 K/UL (4.8-10.8)
[2018-09-14 07:49] LABS: HEMOGLOBIN 18.3 G/DL (14.2-18.0)
[2018-09-14 07:59] LABS: ALANINE AMINOTRANSFERASE 25 U/L (12-78); ALBUMIN 3.5 G/DL (3.4-5.0); ALBUMIN/GLOBULIN RATIO 0.8 (1.0-2.7); ALKALINE PHOSPHATASE 78 U/L (46-116); ANION GAP 13 mmol/L (5-15); ASPARTATE AMINO TRANSFERASE 23 U/L (15-37); BILIRUBIN,TOTAL 0.7 MG/DL (0.2-1.0); BLOOD UREA NITROGEN 21 mg/dL (7-18); CALCIUM 9.3 MG/DL (8.5-10.1); CARBON DIOXIDE 22 MMOL/L (21-32); CHLORIDE 103 MMOL/L (98-107); CREATININE 1.4 MG/DL (0.55-1.30); PHOSPHORUS 3.1 MG/DL (2.5-4.9); POTASSIUM 3.8 MMOL/L (3.5-5.1); SODIUM 138 MMOL/L (136-145)
[2018-09-14 08:00] VITALS: BP 121/81
--- NOTE | 2018-09-14 08:00 | NUR ---
NURSE NOTES: Received order from Carlo MACKAY. pt laying in bed a/a/o x4 with no signs of distress or other issues at this time. No IV access MD is aware. surgical dressing is saturated. RN changed dressing and irrigated ileo. MD is aware. total ileo per it recruiter nurse: 400ml. total urine per it recruiter: 400ml. call light within reach. bed in lowest position. side rales up x2. I will f/u as needed.
[2018-09-14] MEDS: Ciprofloxacin 500mg tab ORAL SCH (08:12)
[2018-09-14] MEDS: Fluconazole 100mg tab ORAL SCH (08:13)
[2018-09-14] MEDS: Ascorbic Acid 500mg tab ORAL PRN (08:13)
[2018-09-14] MEDS: HYDROcodone/Acetamin 10/325 tab ORAL PRN ×2 (08:13→18:16)
--- NOTE | 2018-09-14 09:15 | General Progress Note ---
Progress Note Progress Note AVSS Having stool leaking around the Crowder Pouch catheter and out the stoma. Ate 100% with less forced drinking Abdomen soft. [place] removed and steristrips applied BCIR ileo pouch catheter removed - reinserts readily Urine only 1200 concentrated BCIR ileo 1110cc - taking Cipro + Flagyl WBC up 11,500 Hgb up 18.3 BUN 21 Cr 1.4 up Mg low 1.6 Imp: Dehydration with hemoconcentration Incontinence of Crowder pouoch - ? due to partially blocked catheter in place x 12 day vs. other etiology Plan: IV fluids and replace Mg NURSE GYNECOLOGY supervised BCIR self-intubations qeh and prn from am to hs continue strict I&O; f/u labs in AM Wallace Valdez MD Sep 14, 2018 09:15
--- NOTE | 2018-09-14 09:30 | NUR ---
CRAP SHOOTERCAR RENTAL CLERK SI:DEHYDRATION w/HEMOCONCENTRATION . INCONTINENCE OF GUERRERO POUCH VS: BP 107/64, P 86, T 98.2, RR 20, SpO2 97 WBC 11.5, H&H 18.3/55.2, BUN 21, CR 1.4 IS:ZOFRAN 4mg CIPROFLOXACIN 500mg MAG. SULFATE 100ml IVPB [place] 10/325 D5/ELECTROLYTES x1L IV PEPCID 20mg CEFDINIR 300mg DIFLUCAN 150mg PLAN: IV FLUIDS REPLACE Mg IV 3E MED/SURG STATUS
[2018-09-14] MEDS: D5 1/2NS w/KCl 20mEq 1,000 ML IV SCH ×2 (11:10→17:26)
[2018-09-14 12:00] VITALS: BP 125/80
--- NOTE | 2018-09-14 14:00 | NUR ---
NURSE NOTES: RN called Dr. Valdez at [phone]) to notify that pt's continue liking form his stoma. pt also stated " I have a fistula because this is how it feels before, pls notify the Dr." he stated that in the pass the it was resolved with Flagyl and Cipro. RN left message to dr. Valdez VM. awaiting for respond. I will f/u as needed.
[2018-09-14] MEDS ORDERED: NS Irrig 1000ml ONE (15:03)
[2018-09-14] MEDS: Cefdinir 300mg cap ORAL SCH ×2 (15:03→20:57)
[2018-09-14 16:00] VITALS: BP 112/79
--- NOTE | 2018-09-14 18:58 | NUR ---
HAND-OFF: Report given to Carlo Way pt in stable condition. incoming nursing is aware that pt is leaking from his stoma and needs to put A&D as a skin protector. total I&O's Total Ileo: 220-900= 680ml Total urine: 400ml total Oral intake: 972ml
--- NOTE | 2018-09-14 19:10 | NUR ---
NURSE NOTES: Received report from THOMPSON Stratton and rounds made with out going nurse. Received pt in bed, AOX4, denies pain at this time, no distress noted. IV R FA patent and intact. IV fluid infusing as ordered. Surgical dressing C/D/I. Bed in lowest position and locked, side rails up x 2, call light within reach. Will continue to monitor.
--- NOTE | 2018-09-14 19:30 | NUR ---
NURSE NOTES: Pt self intubated with RN supervision without any difficulty. Pt denies any pain or discomfort. Safely back in bed, no distress noted. Will continue to monitor.
[2018-09-14 20:00] VITALS: BP 139/82
[2018-09-15] VITALS: BP 134/79
--- NOTE | 2018-09-15 | NUR ---
NURSE NOTES: Pt self intubation with RN supervision. Ileo thick greenish output 200 ml, flushed 20cc of NS. Pt denies any pain or discomfort, no distress noted. Vitamin C PO given. Will continue to monitor.
[2018-09-15] MEDS: Ascorbic Acid 500mg tab ORAL PRN (00:05)
[2018-09-15] MEDS: D5 1/2NS w/KCl 20mEq 1,000 ML IV SCH ×3 (01:56→15:34)
[2018-09-15 04:00] VITALS: BP 124/74
[2018-09-15 06:31] LABS: EOSINOPHILS % (AUTO) 11.9 % (0.0-3.0); HEMATOCRIT 49.7 % (42.0-52.0); HEMOGLOBIN 16.1 G/DL (14.2-18.0); LYMPHOCYTES % (AUTO) 20.7 % (20.0-45.0); MEAN CORPUSCULAR VOLUME 94 FL (80-99); MONOCYTES % (AUTO) 9.3 % (1.0-10.0); NEUTROPHILS % (AUTO) 57.1 % (45.0-75.0); PLATELET COUNT 229 K/UL (150-450); RED BLOOD COUNT 5.28 M/UL (4.70-6.10); WHITE BLOOD COUNT 9.6 K/UL (4.8-10.8)
[2018-09-15 06:49] LABS: ALANINE AMINOTRANSFERASE 20 U/L (12-78); ALBUMIN/GLOBULIN RATIO 0.8 (1.0-2.7); ALKALINE PHOSPHATASE 67 U/L (46-116); ANION GAP 11 mmol/L (5-15); ASPARTATE AMINO TRANSFERASE 21 U/L (15-37); BILIRUBIN,TOTAL 0.5 MG/DL (0.2-1.0); BLOOD UREA NITROGEN 17 mg/dL (7-18); CALCIUM 8.4 MG/DL (8.5-10.1); CARBON DIOXIDE 22 MMOL/L (21-32); CHLORIDE 103 MMOL/L (98-107); CREATININE 1.2 MG/DL (0.55-1.30); POTASSIUM 3.5 MMOL/L (3.5-5.1); SODIUM 136 MMOL/L (136-145)
--- NOTE | 2018-09-15 07:11 | NUR ---
NURSE NOTES: Total Intake & Output Total PO intake - 340 Total urine output - 500 Total ileostomy - 600 - 80 = 520
--- NOTE | 2018-09-15 07:40 | NUR ---
HAND-OFF: Report given to THOMPSON Smalls. Pt in stable condition.
--- NOTE | 2018-09-15 07:58 | NUR ---
NURSE NOTES: Received report from Carlo MACKAY. Patient is awake alert and oriented x4, no acute distress noted during rounds, reporting no pain, denies N/V, IVF running per order. Patient updated on plan of care for the day. Side rails upx2, bed low and locked, call light in reach. Will continue to monitor.
[2018-09-15 08:00] VITALS: BP 107/64
--- NOTE | 2018-09-15 08:29 | General Progress Note ---
Progress Note Progress Note AVSS Continued incontinence of stool from Crowder Continent Ileostomy pouch stoma. He is intubating with ease with 30Fr Medena catheter unlike pre- operatively. Overnight his output has thickened and decreased significantly in volume. Cipro and Flagyl had been d/c'd and stated yesterday on Cefdinir 300mg po q12h for pouchitis/bacterial overgrowth enteritis Abdomen soft, no peristomal fistula evident Urine 900cc despite 2500cc IV fluids + 1300cc po intake BCIR ileo 1200 WBC down 9600 Hgb cown 16.1 B"UN down 17 Cr down 1.2 K 3.5 Albumin 3.0 Imp: Dehydration, much improved Incontinence - ? valve tip necrosis, ? valve fistula, ? pouchitis/ inflammation Malnutrition with low albumin despite post-op TPN and now eating BCIR low residue diet Plan: Continue IV fluids continue Cefdinir If incontinence persists may need to insert indwelling catheter to suction, resume TPN (needs new PIC line), and possibly NPO May need pouch endoscopy (POD#13 today) Wallace Valdez MD Sep 15, 2018 08:29
[2018-09-15] MEDS: Fluconazole 100mg tab ORAL SCH (09:34)
[2018-09-15] MEDS: Cefdinir 300mg cap ORAL SCH ×2 (09:34→20:20)
--- NOTE | 2018-09-15 09:43 | NUR ---
SECURITY POLICE OFFICEROIL PIPE INSPECTOR HELPER SI:INCONTINENCE OF STOOL FROM POUCH VS: BP 124/74, P 65, T 98.2, RR 20, SpO2 97 Glucose 124 IS:PEPCID 20mg DIFLUCAN 150mg CEFDINIR 300mg D5/ELECTROLYTES x1L IV PLAN: CONT. IV FLUIDS CONT. CEFDINIR RESUME TPN POSSIBLE POUCH ENDOSCOPY 3E MED/SURG STATUS
--- NOTE | 2018-09-15 11:16 | NUR ---
NURSE NOTES: Patient called RN to request to self intubate, when patient stood up noted ileostomy output pouring out of stoma, once patient sat down, self intubated and emptied pouch, the output stopped flowing. Patient provided with new 4x4 and abd dressing for stoma. Called Dr. Valdez and left message informing MD, awaiting callback with further orders.
[2018-09-15 12:00] VITALS: BP 114/74
--- NOTE | 2018-09-15 12:10 | NUR ---
NURSE NOTES: Received callback from Dr. Valdez. New order received from and entered. Will carry out as ordered.
--- NOTE | 2018-09-15 12:10 | NUR ---
RD ASSESSMENT & RECOMMENDATIONS SEE CARE ACTIVITY FOR COMPLETE ASSESSMENT DAILY ESTIMATED NEEDS: Needs based on Surgery/ 83.5 kg abw 25-30 kcals/kg 9261-7324 total kcals 1-2 g protein/kg 84-167 g total protein 25-30 mL/kg 9922-4705 total fluid mLs NUTRITION DIAGNOSIS: Altered GI function R/T h/o granulomatous colitis as evidenced by admitted for malfunctioning Crowder continent ileostomy, s/p exploratory laparotomy revision of continent pouch,incisional hernia repair, now off TPN, tolerating BCIR low fiber/ low residue w/ good po intake. CURRENT DIET:BCIR LOW RESIDUE DIET PO DIET RECOMMENDATIONS: DIET PER MD ADDITIONAL RECOMMENDATIONS: * Standing wt for accurate CBW, rec weekly wt monitoring. * Monitor acceptance and tolerance on BCIR diet. * Monitor for possible TPN initiation : Per MD on 09/15 "If incontinence persists may need to insert indwelling catheter to suction, resume TPN (needs new PIC line), and possibly NPO"
[2018-09-15] MEDS: HYDROcodone/Acetamin 10/325 tab ORAL PRN (12:21)
[2018-09-15 16:00] VITALS: BP 127/73
--- NOTE | 2018-09-15 18:30 | NUR ---
NURSE NOTES: Total ileo output for my shift: +1220mL Total urine output: 400mL No further leaking from stoma noted after patient hooked to intermittent suction. Pain well managed at this time.
--- NOTE | 2018-09-15 19:30 | NUR ---
HAND-OFF: Report given to Carlo MACKAY. Patient is in stable condition.
[2018-09-15 20:00] VITALS: BP 119/62
--- NOTE | 2018-09-15 20:00 | NUR ---
NURSE NOTES: Patient in bed awake and oriented. VSS No SOB noted noted. Ileo connected to medium intermittent suction. Flushed Q3 hours. Applied lidocaine jelly around the stoma. Needs attended. Call light within reach. In stable condition.
[2018-09-15] MEDS: Lidocaine HCl 2% Jelly 6ml Tube TOPIC PRN (20:01)
[2018-09-16] VITALS: BP 117/64
[2018-09-16 04:00] VITALS: BP 101/72
--- NOTE | 2018-09-16 06:00 | NUR ---
NURSE NOTES: Patient ileo not draining well. Re-adjusted ileo catheter. able to start draining again. No abdominal pain or cramping per patient. No N&V. Leakage on the stoma still present. Dressing changed. Report given to Serina MACKAY.
[2018-09-16] MEDS: Lidocaine HCl 2% Jelly 6ml Tube TOPIC PRN (06:42)
[2018-09-16 07:06] LABS: EOSINOPHILS % (AUTO) 9.8 % (0.0-3.0); HEMOGLOBIN 16.6 G/DL (14.2-18.0); LYMPHOCYTES % (AUTO) 20.4 % (20.0-45.0); MEAN CORPUSCULAR VOLUME 94 FL (80-99); MONOCYTES % (AUTO) 9.8 % (1.0-10.0); NEUTROPHILS % (AUTO) 58.9 % (45.0-75.0); PLATELET COUNT 243 K/UL (150-450); RED BLOOD COUNT 5.41 M/UL (4.70-6.10); WHITE BLOOD COUNT 10.5 K/UL (4.8-10.8)
[2018-09-16] MEDS ORDERED: NS Irrig 1000ml ONE (07:31)
[2018-09-16 07:32] LABS: ANION GAP 12 mmol/L (5-15); BLOOD UREA NITROGEN 11 mg/dL (7-18); CARBON DIOXIDE 21 MMOL/L (21-32); CHLORIDE 104 MMOL/L (98-107); SODIUM 137 MMOL/L (136-145)
[2018-09-16 07:46] LABS: CREATININE 1.1 MG/DL (0.55-1.30)
--- NOTE | 2018-09-16 07:53 | NUR ---
NURSE NOTES: Received report from Carlo MACKAY. Patient is awake alert and oriented x4, no acute distress noted, reporting no pain at this time. Ileo catheter readjusted by Carlo MACKAY, connected to medium intermittent suction, suctioning well. New 4x4 and abd dressing applied. IVF running per order. Patient reports he is tolerating food well. Updated on plan of care for the day, needs attended to. Side rails upx2, bed low and locked, call light in reach. Will continue to monitor.
[2018-09-16 08:00] VITALS: BP 120/65
[2018-09-16] MEDS ORDERED: Dextrose 10% 1,000 ML IV PRN (08:15)
--- NOTE | 2018-09-16 08:22 | General Progress Note ---
Progress Note Progress Note AVSS BCIR ileo catheter to wall suction with no incontinence around the tube except if catheter becomes plugged until it is flushed/repositioned Abdomen soft, flat, healed incision Urine only 800cc BCIR ileo 1789 still watery despite po Cefdinir CBC stable BUN down 11 Cr down 1.1 Imp. 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
[2018-09-16] MEDS ORDERED: Lidocaine 1% Plain 30 ml INJ PRN (08:30)
[2018-09-16] MEDS ORDERED: Heparin1,000 units/500ml Premix(Conc:2 units/ml) INJ PRN (08:30)
--- NOTE | 2018-09-16 08:30 | NUR ---
RD ASSESSMENT & RECOMMENDATIONS SEE CARE ACTIVITY FOR COMPLETE ASSESSMENT DAILY ESTIMATED NEEDS: Needs based on Surgery/ 83.5 kg abw 25-30 kcals/kg 7186-0100 total kcals 1-2 g protein/kg 84-167 g total protein 25-30 mL/kg 8598-8405 total fluid mLs NUTRITION DIAGNOSIS: Altered GI function R/T h/o granulomatous colitis as evidenced by admitted for malfunctioning Crowder continent ileostomy, s/p exploratory laparotomy revision of continent pouch,incisional hernia repair, was off TPN and tolerating BCIR low fiber/ low residue diet w/ good po intake, now w/ saucedo inserted to BCIR pouch and connected to medium intermittent suction, w/ an order for NPO and to restart TPN. CURRENT DIET:NPO PO DIET RECOMMENDATIONS: DIET PER MD PARENTERAL NUTRITION RECOMMENDATIONS: D/AA Rate: 80 IL Rate: 10 Total Rate: 90 Volume: 2160 % Dextrose: 18 % AA: 5.5 Energy (kcals/kg): 2077 Protein (g/kg protein): 105 Nonprotein KCALS: 1655 GIR (mg CHO/kg/min): 2.87 % Fat KCALS: 23 NCP: N Ratio: 100 TPN Comment: * D18% AA5.5% @ 80ml/hr + IL20% @ 10ml/hr-> total of 90ml/hr, all 3:1 * TPN @ goal will provide 100% est kcal and prot needs (25kcal/1.26g prot per kg abw) ADDITIONAL RECOMMENDATIONS: * Standing wt for accurate CBW, rec weekly wt monitoring. * Monitor BGs, lytes, LFTs daily w/ TPN * Monitor for diet initiation per MD . .
[2018-09-16] MEDS: Fluconazole 100mg tab ORAL SCH (08:47)
[2018-09-16] MEDS: Cefdinir 300mg cap ORAL SCH (08:47)
[2018-09-16] MEDS: D5 1/2NS w/KCl 20mEq 1,000 ML IV SCH ×3 (10:37→20:06)
--- NOTE | 2018-09-16 11:03 | NUR ---
NURSE NOTES: Patient taken down for PICC line insertion by luis Wright.
[2018-09-16 11:26] VITALS: BP 113/69
--- NOTE | 2018-09-16 11:40 | NUR ---
RADIOLOGY: RT UPPER EXTREMITY PICC PLACEMENT
--- NOTE | 2018-09-16 11:50 | NUR ---
NURSE NOTES: Patient returned to floor with JONATHAN double lumen PICC line. Dressing with biopatch and statlock was placed prior to patient coming to unit. Site is clean and dry with no bleeding noted, patient is comfortable and reporting no pain. Placed ileo catheter back to wall suction per order.
--- NOTE | 2018-09-16 12:08 | Brief Operative Note ---
Immediate Post Operative Note Operative Note Pre-op Diagnosis: needs IV access Procedure: PICC Post-op Diagnosis: same as pre-op Surgeon: Robert REED Specimen: none Complications: none Condition: stable Fluids: none Implant(s) used?: No Zachary Reed MD Sep 16, 2018 12:08
--- NOTE | 2018-09-16 12:08 | Pre-Procedure Note/Attestation ---
Pre-Procedure Note/Attestation Complete Prior to Procedure Planned Procedure: not applicable Procedure Narrative: PICC Indications for Procedure Pre-Operative Diagnosis: needs IV access Attestation I attest that I discussed the nature of the procedure; its benefits; risks and complications; and alternatives (and the risks and benefits of such alternatives ), prior to the procedure, with the patient (or the patient's legal union representative). I attest that, if there was a reasonable possibility of needing a blood transfusion, the patient (or the patient's legal union representative) was given the [facility] Services standardized written summary, pursuant to the [place] Blood Safety Act ([place] Health and Safety Code # 1645, as amended). I attest that I re-evaluated the patient just prior to the surgery and that there has been no change in the patient's H&P, except as documented below: Zachary Reed MD Sep 16, 2018 12:08
--- NOTE | 2018-09-16 13:50 | NUR ---
BRUSH HOLDER INSPECTORCARDIOLOGY MANAGER SI:INCONTINENCE OF STOOL FROM POUCH VS: BP 101/72, P 90, T 97.8, RR 20, SpO2 95 IS:D5/ELECTROLYTES x1L IV PEPCID 20mg DIFLUCAN 150mg CEFDINIR 300mg LIDOCAINE TOPICAL PLAN: POUCHOGRAM XRAY POUCH ENDOSCOPY R/O VALVE TIP NECROSIS MED/SURG STATUS
--- NOTE | 2018-09-16 14:23 | Diagnostic Imaging Report ---
Indications: Needs long-term IV access Technique: Ultrasound confirms patent compressible right basilic vein. Total sterile technique, including sterile probe cover and sterile gel, hat, mask, sterile gown, large sterile drape, and preparation with 2% chlorhexidine utilized. Local anesthesia with 1% lidocaine. Under real-time ultrasound guidance, puncture basilic vein using 21-gauge needle, documented and archived, passage 0.018 guidewire under direct fluoroscopy, which was used to determine appropriate catheter length, exchange for 4 Kyrgyz peel-away sheath. 4 Kyr[place]z Bard dual-lumen power PICC cut to 49 cm. It was inserted through the peel-away sheath. Peel-away sheath and guidewire removed. Catheter fixed to the skin. Both catheter ports aspirated and flushed. Patient tolerated procedure well, without immediate complication. Digital radiograph documents satisfactory catheter tip position, at the cavoatrial junction. Total fluoroscopy time 21.8 seconds. Total dose area product 3.8 mGym2 Total number of images: 1 Impression: Successful placement of right arm PICC under sonographic and fluoroscopic guidance, as described above.
[2018-09-16 15:56] VITALS: BP 115/76
--- NOTE | 2018-09-16 18:30 | NUR ---
NURSE NOTES: Total ileo output for my shift: +1020mL Total urine output: 775mL Patient ambulated in hallway x2, pain well managed, no leaking from stoma observed during my shift.
--- NOTE | 2018-09-16 19:08 | NUR ---
NURSE NOTES: Patient called RN to report that stoma dressing was wet. Noted small amount of drainage leaking out of stoma, dressing changed, wall suction on.
--- NOTE | 2018-09-16 19:30 | NUR ---
HAND-OFF: Report given to Claudine MACKAY. Patient is in stable condition.
--- NOTE | 2018-09-16 19:31 | NUR ---
NURSE NOTES: Received report & pt from THOMPSON Smalls. Pt lying in bed, a&ox4, in room air. No s/s of acute distress & no c/o pain at this time. Pt currently NPO except ice chips & meds for tomorrow's procedure & pt aware & verbalized understanding. Ileo cath intact & connected to wall suction (intermittent, medium), surgical dressing C/D/I. PICC line intact with IVF running as ordered. Bed in lowest position, call light within reach. Will continue to monitor.
[2018-09-16] MEDS: Fat Emulsion Iv 20% 240 ML in Tpn 1,920 ML IV SCH (19:57)
[2018-09-16 20:00] VITALS: BP 118/72
[2018-09-16] MEDS: Phytonadione 10 mg/mL 1ml amp SUBQ SCH (20:05)
[2018-09-16] MEDS ORDERED: Fat Emulsion Iv 20% 250 ML IV SCH (21:00)
[2018-09-17] VITALS: BP 109/72
[2018-09-17] MEDS: NovoLOG Insulin Flexpen SUBQ SCH ×4 (00:12→18:17)
[2018-09-17] MEDS: HYDROcodone/Acetamin 10/325 tab ORAL PRN (03:38)
[2018-09-17 04:00] VITALS: BP 125/74
[2018-09-17 05:25] LABS: BASOPHILS % (AUTO) 1.2 % (0.0-2.0); EOSINOPHILS % (AUTO) 10.1 % (0.0-3.0); HEMATOCRIT 53.2 % (42.0-52.0); HEMOGLOBIN 17.4 G/DL (14.2-18.0); LYMPHOCYTES % (AUTO) 21.1 % (20.0-45.0); MEAN CORPUSCULAR VOLUME 94 FL (80-99); MONOCYTES % (AUTO) 9.8 % (1.0-10.0); NEUTROPHILS % (AUTO) 57.8 % (45.0-75.0); PLATELET COUNT 249 K/UL (150-450); RED BLOOD COUNT 5.67 M/UL (4.70-6.10); RED CELL DISTRIBUTION WIDTH 11.8 % (11.6-14.8); WHITE BLOOD COUNT 9.2 K/UL (4.8-10.8)
[2018-09-17 05:42] LABS: ALANINE AMINOTRANSFERASE 19 U/L (12-78); ALBUMIN 3.2 G/DL (3.4-5.0); ALBUMIN/GLOBULIN RATIO 0.7 (1.0-2.7); ALKALINE PHOSPHATASE 72 U/L (46-116); ANION GAP 10 mmol/L (5-15); ASPARTATE AMINO TRANSFERASE 23 U/L (15-37); BILIRUBIN,TOTAL 0.6 MG/DL (0.2-1.0); BLOOD UREA NITROGEN 12 mg/dL (7-18); CALCIUM 9.2 MG/DL (8.5-10.1); CARBON DIOXIDE 25 MMOL/L (21-32); CHLORIDE 103 MMOL/L (98-107); CREATININE 1.1 MG/DL (0.55-1.30); PHOSPHORUS 3.5 MG/DL (2.5-4.9); POTASSIUM 3.8 MMOL/L (3.5-5.1); SODIUM 138 MMOL/L (136-145)
[2018-09-17] MEDS: Lidocaine HCl 2% Jelly 6ml Tube TOPIC PRN (06:46)
--- NOTE | 2018-09-17 07:26 | NUR ---
HAND-OFF: Report given to THOMPSON Yanes. Rounds done. Pt in stable condition.
--- NOTE | 2018-09-17 07:30 | NUR ---
NURSE NOTES: Patient lying in bed awake. Complain of mild pain on abdomen area and will continue to monitor. Skin intact and dry. Ileostomy catheter connected to suction and on going as ordered. PICC line dressing intact and dry. IV fluid and TPN on going as ordered. Bed lowest position. Call light within reach. Will continue to monitor.
--- NOTE | 2018-09-17 07:55 | NUR ---
NURSE NOTES: Spoke to regarding patient and new order received. Order read back and carried out.
[2018-09-17 08:00] VITALS: BP 102/70
--- NOTE | 2018-09-17 09:59 | NUR ---
NURSE NOTES: Patient off unit for procedure in stable condition. Ileostomy catheter connected to drainage bag. Collected stool specimen for C-Diff and sent to lab.
[2018-09-17 12:00] VITALS: BP 114/76
--- NOTE | 2018-09-17 13:57 | General Progress Note ---
Progress Note Progress Note AVSS With Crowder pouch catheter in good position, no leaking of stool with catheter to suction. Still excessive loose/watery output - off po antibiotics Abdomen soft, non-tender Urine up 1225 BCIR ileo 2140 WBC 9200 Hgb 17.4 BUN 12 Cr 1.1 Phos 3.5 Mg 1.8 Albumin 3.2 (up) Pouchogram: immediate reflux of contrast around the catheter onto the skin via the stoma. 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 diff toxin Wallace Valdez MD Sep 17, 2018 13:57
--- NOTE | 2018-09-17 14:20 | Diagnostic Imaging Report ---
Indication: Status post revision of a continent ileostomy. Postoperative incontinence COMPARISON: None FINDINGS: Multiple fluoroscopic images were obtained intraoperatively during water-soluble contrast administration via gravity. Total fluoroscopic time 72 seconds. Continent ileostomy is demonstrated. The catheter is well situated within the pouch. Instilling of contrast material shows opacification of the pouch. Almost immediately after contrast was instilled into the pouch, the administered contrast was noted leaking around the stoma onto the patient's skin and fluoroscopic table. No more contrast was administered at that point. Even in retrospect, the refluxed peristomal and pericatheter contrast could not be detected on the images perhaps related to quality of images, which in this case is not ideal given the portable C-arm fluoroscopic unit utilized for the study. IMPRESSION: Contrast leaking around the catheter through the stoma. Procedure description as above. Findings were discussed with Dr. Wallace Valdez.
--- NOTE | 2018-09-17 14:49 | NUR ---
*-* INSURANCE *-* UPDATED CLINICALS HAVE BEEN FAXED TO: PER ADMITTING FAX CLINICALS TO f- [phone]
--- NOTE | 2018-09-17 15:02 | NUR ---
SUPERVISOR WHEEL SHOPHEATING ENGINEER SI:INCONTINENCE OF STOOL FROM POUCH VS: 102/70, P 90, T 98.3, RR 19, SpO2 95 HCT 53.2, ALBUMIN 3.2, GLUCOSE 128 POUCHOGRAM: immediate reflux of contrast around the catheter onto the skin via the stoma. Catheter in good position. IS:MAGNESIUM SULFATE 100ml IVPB NOVOLOG SUBQ PEPCID 20mg NORCO 10/325 1tab D5/ELECTROLYTES x1L IV Plan: Continue NPO, TPN Continuous drainage of Crowder pouch with suction Pouch endoscopy tomorrow Stool for C. diff toxin 3E MED/SURG STATUS
[2018-09-17 16:00] VITALS: BP 124/79
--- NOTE | 2018-09-17 19:30 | NUR ---
NURSE NOTES: Received report & pt from THOMPSON Yanes. Pt lying in bed, a&ox4, in room air. No s/s of acute distress & no c/o pain at this time. Pt currently NPO except ice chips & meds for tomorrow's pouch endoscopy & pt aware & verbalized understanding. Ileo cath intact & connected to wall suction (intermittent, medium), surgical dressing C/D/I. PICC line intact with IVF & TPN running as ordered. Bed in lowest position, call light within reach. Will continue to monitor.
[2018-09-17 20:00] VITALS: BP 119/72
[2018-09-17] MEDS: D5 1/2NS w/KCl 20mEq 1,000 ML IV SCH (20:04)
[2018-09-17] MEDS: Dyna-Hex 2% Top Sol 2oz TOPIC SCH (20:04)
[2018-09-17] MEDS: Fat Emulsion Iv 20% 240 ML in Tpn 1,920 ML IV SCH (20:06)
[2018-09-18] VITALS: BP 118/77
--- NOTE | 2018-09-18 | NUR ---
NURSE NOTES: Abdominal dressing soaked & changed
[2018-09-18] MEDS: HYDROcodone/Acetamin 10/325 tab ORAL PRN (00:49)
[2018-09-18 04:00] VITALS: BP 114/74
[2018-09-18] MEDS: NovoLOG Insulin Flexpen SUBQ SCH ×4 (05:38→18:20)
--- NOTE | 2018-09-18 05:46 | NUR ---
NURSE NOTES: Ambulating in hallway with steady gait. No distress noted.
[2018-09-18 06:56] LABS: ALANINE AMINOTRANSFERASE 29 U/L (12-78); ALBUMIN 3.7 G/DL (3.4-5.0); ALBUMIN/GLOBULIN RATIO 0.7 (1.0-2.7); ALKALINE PHOSPHATASE 84 U/L (46-116); ANION GAP 13 mmol/L (5-15); ASPARTATE AMINO TRANSFERASE 29 U/L (15-37); BILIRUBIN,TOTAL 0.6 MG/DL (0.2-1.0); BLOOD UREA NITROGEN 17 mg/dL (7-18); CALCIUM 9.3 MG/DL (8.5-10.1); CARBON DIOXIDE 24 MMOL/L (21-32); CHLORIDE 101 MMOL/L (98-107); CREATININE 1.2 MG/DL (0.55-1.30); POTASSIUM 3.9 MMOL/L (3.5-5.1); SODIUM 138 MMOL/L (136-145)
--- NOTE | 2018-09-18 07:24 | NUR ---
HAND-OFF: Report given to THOMPSON Yanes. Rounds done. Pt in stable condition.
--- NOTE | 2018-09-18 07:30 | NUR ---
NURSE NOTES: Patient lying in bed awake. No complain of pain or distress at this time. Skin intact and dry. Ileostomy dressing intact and dry. Ileostomy catheter connected to suction and on going as ordered. PICC line dressing intact and dry. IV fluid and TPN on going as ordered. Bed lowest position. Call light within reach. Will continue to monitor.
[2018-09-18 08:00] VITALS: BP 119/80
--- NOTE | 2018-09-18 10:57 | NUR ---
TITLE I COORDINATORCORRUGATOR HELPER SI:INCONTINENCE OF STOOL FROM POUCH VS : BP 114/74, P 81, T 97.9, RR 18, SpO2 94 GLUCOSE 111, TOTAL PROTEIN 8.7 IS:PEPCID 20mg NOVOLOG SUBQ NORCO 10/325 FAT EMULSION 2,160 ml IV D5/ELECTROLYTES x1L IV MED/SURG STATUS
[2018-09-18 12:00] VITALS: BP 136/84
[2018-09-18] MEDS ORDERED: HYDROcodone/Acetamin 10/325 tab ORAL PRN (12:30)
--- NOTE | 2018-09-18 12:32 | Pre-Procedure Note/Attestation ---
Pre-Procedure Note/Attestation Complete Prior to Procedure Planned Procedure: not applicable Procedure Narrative: Crowder continent ileostomy pouch endoscopy Indications for Procedure Pre-Operative Diagnosis: Incontinence post-op revision of Crowder Continent Ileostomy Attestation I attest that I discussed the nature of the procedure; its benefits; risks and complications; and alternatives (and the risks and benefits of such alternatives ), prior to the procedure, with the patient (or the patient's legal printing sales representative). I attest that, if there was a reasonable possibility of needing a blood transfusion, the patient (or the patient's legal printing sales representative) was given the [facility] Services standardized written summary, pursuant to the [place] Blood Safety Act ([place] Health and Safety Code # 1645, as amended). I attest that I re-evaluated the patient just prior to the surgery and that there has been no change in the patient's H&P, except as documented below:none Wallace Valdez MD Sep 18, 2018 12:32
--- NOTE | 2018-09-18 12:34 | General Progress Note ---
Progress Note Progress Note AVSS Doing well with npo and TPN and Crodwer pouch catheter to wall suction - had one episode of incontinence around the catheter Abdomen soft Still with 2lites of ileostomy output in 24 hours despite NPO C. diff toxin negative Albumin up 3.7 Mg 1.8 Imp. Incontinence post-op revision of Crowder Continent Ileostomy Plan: For pouch endoscopy today continue current regimen - give another Mg infusion Wallace Valdez MD Sep 18, 2018 12:34
--- NOTE | 2018-09-18 13:00 | NUR ---
NURSE NOTES: Patient off unit for procedure in stable condition.
--- NOTE | 2018-09-18 13:25 | Brief Operative Note ---
Immediate Post Operative Note Operative Note Pre-op Diagnosis: Incontinence post-op revision of Crowder Continent Ileostomy Procedure: Crowder continent ileostomy pouch endoscopy Post-op Diagnosis: same Post-op Diagnosis: same as pre-op Findings: consistent w/pre-op dx studies Surgeon: krystle Anesthesia: other - none Specimen: none Complications: none Condition: stable Fluids: none Estimated Blood Loss: none Drains: other - 28 Bailey to Crowder pouch Implant(s) used?: No Wallace Valdez MD Sep 18, 2018 13:25
--- NOTE | 2018-09-18 13:28 | General Progress Note ---
Progress Note Progress Note Pouch endoscopy: valve is well formed and well perfused; no valve fistula evident (may be a "microfistula"); no pouchitis Full discussion with patient and . Imp.: Incontinence post-op revision of Crowder continent ileostomy on 09/02/18 Plan: continue current regimen for several more days, then another trial of self -intubations to determine continence Imodium 1 po BID for high volume output Wallace Valdez MD Sep 18, 2018 13:28
--- NOTE | 2018-09-18 13:30 | NUR ---
NURSE NOTES: Patient came back from procedure in stable condition. Ileostomy catheter patent and draining well. Will continue to monitor.
[2018-09-18] MEDS ORDERED: Loperamide 2mg cap ORAL SCH (13:45)
--- NOTE | 2018-09-18 15:41 | NUR ---
*-* INSURANCE *-* UPDATED CLINICALS HAVE BEEN FAXED TO: PER ADMITTING FAX CLINICALS TO f- [phone]
[2018-09-18 16:00] VITALS: BP 113/78
[2018-09-18] MEDS ORDERED: NS Irrig 1000ml ONE (17:23)
[2018-09-18] MEDS: Loperamide 2mg cap ORAL SCH (18:04)
--- NOTE | 2018-09-18 18:45 | Procedure Note ---
DATE OF PROCEDURE: 09/18/2018 ENDOSCOPIST: Wallace Valdez M.D. ANESTHESIA: None. SEDATION: None. PRE-ENDOSCOPY DIAGNOSES: 1. Incontinence, status post revision of Crowder continent ileostomy performed 09/02/2018. 2. History of granulomatous colitis. 3. Status post multiple abdominal operations. 3.1. Proctocolectomy and Kathy ileostomy in 1992. 3.2. Crowder continent ileostomy in 1996. 3.3. Repair of Crowder continent ileostomy, enterocutaneous fistula, stoma revision, and abdominoperineal resection July 2013. 3.4. Revision of partially slipped valve of Crowder continent ileostomy 09/02/2018. POST-ENDOSCOPY DIAGNOSES: 1. Incontinence, status post revision of Crowder continent ileostomy performed 09/02/2018. 2. History of granulomatous colitis. 3. Status post multiple abdominal operations. 3.1. Proctocolectomy and Kathy ileostomy in 1992. 3.2. Crowder continent ileostomy in 1996. 3.3. Repair of Crowder continent ileostomy, enterocutaneous fistula, stoma revision, and abdominoperineal resection July 2013. 3.4. Revision of partially slipped valve of Crowder continent ileostomy 09/02/2018. ENDOSCOPY PERFORMED: Crowder continent ileostomy pouch endoscopy. FINDINGS: There was no evidence of pouchitis. The nipple valve was well-formed circumferentially and well perfused. I was not able to see any valve fistula, although this could be a micro fistula. DESCRIPTION OF PROCEDURE: The patient was taken to the GI lab and without any anesthesia or sedation given or required, he laid supine. I first irrigated the pouch through the indwelling 28-Algerian Bailey and then removed the catheter. Using a GIF-P140 endoscope, the stoma was entered under direct vision. The distance to the tip of the valve was 8 to 9 cm to be expected. The pouch was entered and was distensible, but I used very little insufflation because of the recent pouch surgery revision and suture line. Retroflexed views revealed the nipple valve to be well-formed and well perfused throughout. I could not see any fistula opening either from the outside or upon withdrawal views through the valve segment out of the stoma. Following the procedure, I reinserted a new 28-Algerian Bailey catheter into the pouch, taped it to the skin, put dressings around it, connected it to the drainage, and he will return to his room and have a connected to wall suction. The patient tolerated the endoscopy well. Wallace Valdez M.D. DR: SHAILESH JOB#: [id number] CC:
--- NOTE | 2018-09-18 19:30 | NUR ---
HAND-OFF: Report given to Willian MACKAY. Patient in stable condition.
--- NOTE | 2018-09-18 19:35 | NUR ---
NURSE NOTES: Report taken from THOMPSON Yanes. Patient is awake and in bed, family at bedside, A&Ox4. No signs of distress on room air. No complaints of pain. Ileo, FR 28, and stoma is leaking green fluid, MD aware. Change dressing PRN. Ileo connected to intermittent-moderate suction, draining dark green fluid. Patient is able to disconnect from suction while ambulating. Continue to flush ileo Q3H and PRN. PICC JONATHAN c/d/i and patent, running TPN at 90mls/hr and D51/2NS+20KCl at 40mls/hr. SKin is intact. Bed in lowest position, call light within reach.
[2018-09-18 20:00] VITALS: BP 99/63
[2018-09-18] MEDS: Dyna-Hex 2% Top Sol 2oz TOPIC SCH (20:10)
[2018-09-18] MEDS: D5 1/2NS w/KCl 20mEq 1,000 ML IV SCH (20:10)
[2018-09-18] MEDS: Fat Emulsion Iv 20% 240 ML in Tpn 1,920 ML IV SCH (20:11)
[2018-09-19] MEDS: NovoLOG Insulin Flexpen SUBQ SCH ×5 (00:04→23:56)
[2018-09-19 04:00] VITALS: BP 118/76
[2018-09-19 05:26] LABS: ALANINE AMINOTRANSFERASE 35 U/L (12-78); ALBUMIN 3.3 G/DL (3.4-5.0); ALBUMIN/GLOBULIN RATIO 0.7 (1.0-2.7); ALKALINE PHOSPHATASE 89 U/L (46-116); ANION GAP 9 mmol/L (5-15); ASPARTATE AMINO TRANSFERASE 33 U/L (15-37); BILIRUBIN,TOTAL 0.6 MG/DL (0.2-1.0); BLOOD UREA NITROGEN 15 mg/dL (7-18); CALCIUM 9.5 MG/DL (8.5-10.1); CARBON DIOXIDE 27 MMOL/L (21-32); CHLORIDE 104 MMOL/L (98-107); CREATININE 1.2 MG/DL (0.55-1.30); POTASSIUM 4.3 MMOL/L (3.5-5.1); SODIUM 140 MMOL/L (136-145)
--- NOTE | 2018-09-19 06:28 | NUR ---
NURSE NOTES: Patient had a good night. No complaints of pain, n/v. Dressing changed at 0300, re-evaluated at 0600, dressing c/d/i. Ileo still connected to intermittent-moderate suction. Patient was up ambulating unit in the morning, no problems. Outputs for night below: UO: 575cc Ileo: 450cc(suction)-80cc(flush)= 370cc total ileo
--- NOTE | 2018-09-19 07:25 | NUR ---
HAND-OFF: Report given to THOMPSON Brownlee. Patient VS stable.
--- NOTE | 2018-09-19 07:30 | NUR ---
NURSE NOTES: WALKING ROUNDS DONE WITH OUTGOING RN. PATIENT RESTING. ILEOSTOMY DRSG C/D/I AND CONNECTED TO MODERATE INTERMITTENT SUCTION PER MD ORDER. JONATHAN PICC INTACT AND SECURED; C/D/I. BED IN LOWEST AND LOCKED POSITION. CALL LIGHT WITHIN REACH.
[2018-09-19] MEDS ORDERED: Ascorbic Acid 500mg tab ORAL PRN (07:45)
[2018-09-19 08:00] VITALS: BP 100/70
[2018-09-19] MEDS: Loperamide 2mg cap ORAL SCH ×2 (09:02→18:12)
--- NOTE | 2018-09-19 09:44 | NUR ---
*-* INSURANCE *-* UPDATED CLINICALS HAVE BEEN FAXED TO: PER ADMITTING FAX CLINICALS TO f- [phone]
[2018-09-19 12:00] VITALS: BP 110/73
--- NOTE | 2018-09-19 12:46 | NUR ---
LICENSED APPRAISERDISPATCHER CHIEF OIL SI:INCONTINENCE OF STOOL FROM POUCH VS: BP 100/70, P 98, T 97.8, RR 19, SpO2 95 Glucose 110, Total Protein 8.3, Albumin 3.3 POUCH ENDOSCOPY: Valve is well formed and well perfused; no valve fistula evident. IS:PEPCID 20mg FAT EMULSION 2,160ml IV D5/ELECTROLYTES x1L IV PLAN: Continue current regimen for several more days, then another trial of self-intubations MED/SURG STATUS
--- NOTE | 2018-09-19 14:47 | General Progress Note ---
Progress Note Progress Note AVSS Doing well with npo and TPN and Crowder pouch catheter to wall suction has not had any incontinence around tube since 930AM yesterday no n/v/f/c labs noted and okay Abdomen soft; catheter in place much less output from ileostomy in past 24hrs . states Imodium helped C. diff toxin negative pouch endoscopy noted Imp. Incontinence post-op revision of Crowder Continent Ileostomy Plan: cont current management Rufino Thompson Sep 19, 2018 14:47
[2018-09-19 16:00] VITALS: BP 107/67
--- NOTE | 2018-09-19 18:50 | NUR ---
HAND-OFF: Report given to HUBERT HOLDEN.
--- NOTE | 2018-09-19 19:10 | NUR ---
NURSE NOTES: Report taken from THOMPSON Brownlee. Patient is awake and family at bedside, A&Ox4. No signs of distress on room air. No complaints of pain or n/v. Dressing at stoma site c/d/i, change PRN. Skin is c/d/i. JONATHAN PICC c/d/i and patent, running TPN at 90mls/hr and D51/2+20KCl at 40mls/hr. Ileo connected to intermittent-moderate suction, flush Q3, continue to monitor. Bed in lowest position, call light within reach.
[2018-09-19] MEDS: Fat Emulsion Iv 20% 240 ML in Tpn 1,920 ML IV SCH (19:54)
[2018-09-19] MEDS: D5 1/2NS w/KCl 20mEq 1,000 ML IV SCH (19:55)
[2018-09-19] MEDS: Dyna-Hex 2% Top Sol 2oz TOPIC SCH (19:55)
[2018-09-19 20:00] VITALS: BP 100/69
[2018-09-20 04:00] VITALS: BP 105/68
[2018-09-20] MEDS: NovoLOG Insulin Flexpen SUBQ SCH ×4 (06:01→23:48)
--- NOTE | 2018-09-20 06:13 | NUR ---
NURSE NOTES: Patient had a good night. Feels more positive with the progress of his stoma. Dressing changed x1, no staining or saturation. Outputs for the night below UO: 650cc Ileo: 525cc(suction ileo)-80cc(flush)= 445cc
--- NOTE | 2018-09-20 07:20 | NUR ---
HAND-OFF: Report given to THOMPSON Adkins. Patient asleep, VS stable.
[2018-09-20 07:27] LABS: BASOPHILS % (AUTO) 0.9 % (0.0-2.0); HEMATOCRIT 49.4 % (42.0-52.0); HEMOGLOBIN 16.1 G/DL (14.2-18.0); LYMPHOCYTES % (AUTO) 21.6 % (20.0-45.0); MEAN CORPUSCULAR VOLUME 94 FL (80-99); MONOCYTES % (AUTO) 8.8 % (1.0-10.0); NEUTROPHILS % (AUTO) 56.8 % (45.0-75.0); PLATELET COUNT 245 K/UL (150-450); RED BLOOD COUNT 5.27 M/UL (4.70-6.10); RED CELL DISTRIBUTION WIDTH 11.9 % (11.6-14.8)
[2018-09-20 07:53] LABS: ALANINE AMINOTRANSFERASE 33 U/L (12-78); ALBUMIN 3.1 G/DL (3.4-5.0); ALBUMIN/GLOBULIN RATIO 0.7 (1.0-2.7); ALKALINE PHOSPHATASE 80 U/L (46-116); AMYLASE 40 U/L (25-115); ANION GAP 9 mmol/L (5-15); ASPARTATE AMINO TRANSFERASE 31 U/L (15-37); BILIRUBIN,TOTAL 0.5 MG/DL (0.2-1.0); BLOOD UREA NITROGEN 15 mg/dL (7-18); CALCIUM 9.2 MG/DL (8.5-10.1); CARBON DIOXIDE 26 MMOL/L (21-32); CHLORIDE 104 MMOL/L (98-107); POTASSIUM 3.8 MMOL/L (3.5-5.1); SODIUM 139 MMOL/L (136-145)
--- NOTE | 2018-09-20 07:56 | NUR ---
NURSE NOTES: AWAKE/ALERT. NO C/O PAIN. ILEOSTOMY TUBE CONNECTED TO MEDIUM INTERMITTENT SUCTION DRAINING BROWNISH LIQUID. IN NO APPARENT DISTRESS.
[2018-09-20 08:00] VITALS: BP 108/61
[2018-09-20] MEDS: Loperamide 2mg cap ORAL SCH ×2 (09:00→17:53)
--- NOTE | 2018-09-20 10:13 | NUR ---
RD ASSESSMENT & RECOMMENDATIONS SEE CARE ACTIVITY FOR COMPLETE ASSESSMENT DAILY ESTIMATED NEEDS: Needs based on Surgery/ 83.5 kg abw 25-30 kcals/kg 2203-6698 total kcals 1-2 g protein/kg 84-167 g total protein 25-30 mL/kg 3736-9443 total fluid mLs NUTRITION DIAGNOSIS: Altered GI function R/T h/o granulomatous colitis as evidenced by admitted for malfunctioning Crowder continent ileostomy, s/p exploratory laparotomy revision of continent pouch,incisional hernia repair, was off TPN and tolerating BCIR low fiber/ low residue diet w/ good po intake, but now back on TPN, NPO, w/ saucedo inserted to BCIR pouch and connected to medium intermittent suction, CURRENT DIET:NPO, ON TPN (D18% AA5.5% @ 80ml/hr + IL20% @ 10ml/hr-> total of 90ml/hr, all 3:1) PO DIET RECOMMENDATIONS: DIET PER MD PARENTERAL NUTRITION RECOMMENDATIONS: D/AA Rate: 80 IL Rate: 10 Total Rate: 90 Volume: 2160 % Dextrose: 18 % AA: 5.5 Energy (kcals/kg): 2077 Protein (g/kg protein): 105 Nonprotein KCALS: 1655 GIR (mg CHO/kg/min): 2.87 % Fat KCALS: 23 NCP: N Ratio: 100 TPN Comment: * Continue current TPN: D18% AA5.5% @ 80ml/hr + IL20% @ 10ml/hr-> total of 90ml/hr, all 3:1 * TPN @ goal will provide 100% est kcal and prot needs (25kcal/1.26g prot per kg abw) ADDITIONAL RECOMMENDATIONS: * Standing wt for accurate CBW, rec weekly wt monitoring. * Monitor BGs, lytes, LFTs daily w/ TPN * Monitor for diet initiation per MD . .
--- NOTE | 2018-09-20 10:22 | NUR ---
NURSE NOTES: AMBULATED OUT IN THE [facility].
[2018-09-20 12:00] VITALS: BP 114/70
--- NOTE | 2018-09-20 14:54 | General Progress Note ---
Progress Note Progress Note AVSS Doing well with npo and TPN and Crowder pouch catheter to wall suction has not had any incontinence for two days now no n/v/f/c labs noted and okay Abdomen soft; catheter in place high output 800cc over 8hrs this morning. believes it is inbetween doses of Imodium C. diff toxin negative pouch endoscopy noted Imp. Incontinence post-op revision of Crowder Continent Ileostomy Plan: cont current management Rufino Thompson Sep 20, 2018 14:54
--- NOTE | 2018-09-20 15:47 | NUR ---
BINDER LOCKSTITCHMEDICAL OFFICE ASSISTANT INSTRUCTOR SI:INCONTINENCE OF GUERRERO POUCH VS: BP 106/69, P 73, T 97.8, RR 20, SpO2 93 IS:FAT EMULSION 2160ml IV D5/ELECTROLYTES 1000ml IV IMODIUM 2mg PEPCID 20mg PLAN: NPO TPN LABS 3E MED/SURG STATUS
[2018-09-20 16:00] VITALS: BP 110/60
--- NOTE | 2018-09-20 19:04 | NUR ---
NURSE NOTES: no acute significant changes. condition stable. no distress.
--- NOTE | 2018-09-20 19:05 | NUR ---
HAND-OFF: Report given to Omid MELTON RN.
--- NOTE | 2018-09-20 19:15 | NUR ---
NURSE NOTES: Received report & pt from THOMPSON Adkins. Pt lying in bed, a&ox4, in room air. No s/s of acute distress & no c/o pain at this time. Ileo cath intact & connected to wall suction (intermittent, medium), surgical dressing C/D/I. PICC line intact with IVF & TPN running as ordered. Bed in lowest position, call light within reach. Will continue to monitor.
[2018-09-20 20:00] VITALS: BP 125/74
[2018-09-20] MEDS: D5 1/2NS w/KCl 20mEq 1,000 ML IV SCH (20:02)
[2018-09-20] MEDS: Fat Emulsion Iv 20% 240 ML in Tpn 1,920 ML IV SCH (20:03)
[2018-09-20] MEDS: Dyna-Hex 2% Top Sol 2oz TOPIC SCH (20:05)
[2018-09-20 23:59] VITALS: BP 120/75
[2018-09-21 03:23] VITALS: BP 106/69
[2018-09-21] MEDS: NovoLOG Insulin Flexpen SUBQ SCH ×3 (06:00→18:00)
--- NOTE | 2018-09-21 07:13 | NUR ---
HAND-OFF: Report given to THOMPSON Olivas. Pt in stable condition. Rounds done.
--- NOTE | 2018-09-21 07:15 | NUR ---
NURSE NOTES:BEDSIDE ROUND WITH NIGHT RN(CHUCK)PT.RESTING IN BED,PLEASANT,IVS ON GOING BY LEFT UPPER ARM PICC LINE,PATENT,ILEO. CATH CONNECTED TO LOW INT.SUCTION,WITH BROWNISH EFFLUENT,ABDOMINAL DRESSING C/D/I.NO C/O PAIN. AT BEDSIDE.WILL CONT.PLAN OF CARE.
[2018-09-21 07:46] VITALS: BP 106/69
[2018-09-21 07:48] LABS: BASOPHILS % (AUTO) 0.9 % (0.0-2.0); EOSINOPHILS % (AUTO) 12.3 % (0.0-3.0); HEMATOCRIT 50.2 % (42.0-52.0); HEMOGLOBIN 16.5 G/DL (14.2-18.0); LYMPHOCYTES % (AUTO) 23.7 % (20.0-45.0); MEAN CORPUSCULAR VOLUME 94 FL (80-99); MONOCYTES % (AUTO) 8.7 % (1.0-10.0); NEUTROPHILS % (AUTO) 54.3 % (45.0-75.0); PLATELET COUNT 228 K/UL (150-450); RED BLOOD COUNT 5.37 M/UL (4.70-6.10); WHITE BLOOD COUNT 8.6 K/UL (4.8-10.8)
[2018-09-21 08:07] LABS: ALANINE AMINOTRANSFERASE 38 U/L (12-78); ALBUMIN 2.9 G/DL (3.4-5.0); ALBUMIN/GLOBULIN RATIO 0.6 (1.0-2.7); ALKALINE PHOSPHATASE 83 U/L (46-116); ANION GAP 9 mmol/L (5-15); ASPARTATE AMINO TRANSFERASE 34 U/L (15-37); BILIRUBIN,TOTAL 0.5 MG/DL (0.2-1.0); BLOOD UREA NITROGEN 14 mg/dL (7-18); CALCIUM 9.1 MG/DL (8.5-10.1); CARBON DIOXIDE 26 MMOL/L (21-32); CHLORIDE 104 MMOL/L (98-107); CREATININE 1.1 MG/DL (0.55-1.30); POTASSIUM 3.8 MMOL/L (3.5-5.1); SODIUM 139 MMOL/L (136-145)
[2018-09-21] MEDS: Loperamide 2mg cap ORAL SCH ×2 (09:09→18:15)
--- NOTE | 2018-09-21 10:00 | NUR ---
NURSE NOTES:ambulating in hallway with ,nad.
[2018-09-21 12:00] VITALS: BP 111/72
[2018-09-21] MEDS ORDERED: NS Irrig 1000ml ONE (13:32)
[2018-09-21 15:57] VITALS: BP 112/69
--- NOTE | 2018-09-21 18:00 | NUR ---
NURSE NOTES:AMBULATING IN HALLWAY WITH .NAD.
--- NOTE | 2018-09-21 19:30 | NUR ---
NURSE NOTES: Pt lying in bed w/ at bedside, bed in lowest position, and call light within reach. Pt A&Ox4, VSS, and in no apparent distress at this time. JONATHAN PICC line intact/asymptomatic w/IVF & TPN infusing; ileo to suction; and surgical dressing C/D/I. Will continue to monitor.
--- NOTE | 2018-09-21 19:35 | NUR ---
HAND-OFF: Report given to JUNIOR MACKAY.PT.STABLE..
--- NOTE | 2018-09-21 19:54 | General Progress Note ---
Progress Note Progress Note AVSS Doing well with npo and TPN and Crowder pouch catheter to wall suction has not had any incontinence for a few days now no n/v/f/c labs noted and okay Abdomen soft; catheter in place high output mainly in the morning. C. diff toxin negative pouch endoscopy noted Imp. Incontinence post-op revision of Crowder Continent Ileostomy Plan: cont current management Rufino Thompson Sep 21, 2018 19:54
[2018-09-21] MEDS: Fat Emulsion Iv 20% 240 ML in Tpn 1,920 ML IV SCH (19:59)
[2018-09-21 20:00] VITALS: BP 111/73
[2018-09-21] MEDS: D5 1/2NS w/KCl 20mEq 1,000 ML IV SCH (20:03)
[2018-09-21] MEDS: Dyna-Hex 2% Top Sol 2oz TOPIC SCH (20:03)
[2018-09-22] VITALS: BP 111/67
[2018-09-22 04:00] VITALS: BP 106/61
[2018-09-22] MEDS: NovoLOG Insulin Flexpen SUBQ SCH ×4 (05:55→18:00)
[2018-09-22 06:42] LABS: BASOPHILS % (AUTO) 1.2 % (0.0-2.0); EOSINOPHILS % (AUTO) 12.3 % (0.0-3.0); HEMATOCRIT 54.7 % (42.0-52.0); HEMOGLOBIN 17.8 G/DL (14.2-18.0); LYMPHOCYTES % (AUTO) 24.2 % (20.0-45.0); MEAN CORPUSCULAR VOLUME 94 FL (80-99); MONOCYTES % (AUTO) 10.2 % (1.0-10.0); NEUTROPHILS % (AUTO) 52.1 % (45.0-75.0); PLATELET COUNT 220 K/UL (150-450); RED BLOOD COUNT 5.83 M/UL (4.70-6.10); RED CELL DISTRIBUTION WIDTH 11.9 % (11.6-14.8); WHITE BLOOD COUNT 8.2 K/UL (4.8-10.8)
[2018-09-22 06:58] LABS: ALANINE AMINOTRANSFERASE 43 U/L (12-78); ALBUMIN 3.2 G/DL (3.4-5.0); ALBUMIN/GLOBULIN RATIO 0.7 (1.0-2.7); ALKALINE PHOSPHATASE 92 U/L (46-116); ANION GAP 8 mmol/L (5-15); ASPARTATE AMINO TRANSFERASE 37 U/L (15-37); BILIRUBIN,TOTAL 0.6 MG/DL (0.2-1.0); BLOOD UREA NITROGEN 13 mg/dL (7-18); CALCIUM 9.4 MG/DL (8.5-10.1); CARBON DIOXIDE 27 MMOL/L (21-32); CHLORIDE 104 MMOL/L (98-107); POTASSIUM 3.9 MMOL/L (3.5-5.1); SODIUM 139 MMOL/L (136-145)
--- NOTE | 2018-09-22 07:30 | NUR ---
HAND-OFF: Report given to Joaquín Martinez RN. Addendum: 09/22/18 at 0732 by JUNIOR HULL RN Report given to THOMPSON Stratton.
--- NOTE | 2018-09-22 07:43 | NUR ---
NURSE NOTES: Received report from Diego MACKAY, pt a/a/o x4 laying in bed with no signs of distress or other issues at this time. ileostomy in place with intermittent suction, draining well. total ileo output during table games shift manager: 370ml. total urine output: 575ml. surgical dressing with 4x4, sterile strips dry and intact. PICC line on the right upper arm running TPN@90ml/hr and D5 1/2 NS+20mEq@40ml/hr. pt is on NPO except ice chips and meds. call light within reach. bed in lowest position, side rales up x2. I will f/u as needed.
[2018-09-22 08:00] VITALS: BP 117/68
[2018-09-22] MEDS: Loperamide 2mg cap ORAL SCH ×2 (09:00→18:10)
[2018-09-22 12:00] VITALS: BP 115/78
--- NOTE | 2018-09-22 15:52 | NUR ---
CHANNEL LIP STIFFENER INSOLESPROPULSION SYSTEMS ENGINEER SI:INCONTINENCE OF GUERRERO POUCH VS: BP 111/73, P 80, T 97.8, RR 20, SpO2 96 IS:FAT EMULSION 2160ml IV D5/ELECTROLYTES 1000ml IV IMODIUM 2mg PEPCID 20mg PLAN: NPO TPN LABS 3E MED/SURG STATUS Addendum: 09/23/18 at 1558 by Martha Turpin LVN REVIEW IS FOR 09/21/18
--- NOTE | 2018-09-22 15:53 | NUR ---
ETHANOL OPERATIONS MANAGERCAR SHUNTER SI:INCONTINENCE OF GUERRERO POUCH VS: BP 106/61, P 90, T 97.9, RR 22, SpO2 96 IS:IMODIUM 2mg PEPCID 20mg PLAN: NPO TPN LABS 3E MED/SURG STATUS
[2018-09-22 16:00] VITALS: BP 120/76
--- NOTE | 2018-09-22 16:20 | NUR ---
*-* INSURANCE *-* UPDATED CLINICALS HAVE BEEN FAXED TO: PER ADMITTING FAX CLINICALS TO f- [phone]
--- NOTE | 2018-09-22 16:40 | General Progress Note ---
Progress Note Progress Note AVSS Doing well while NPO on TPN and BCIR catheter to suction - no incontinence. 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
--- NOTE | 2018-09-22 19:25 | NUR ---
HAND-OFF: Report given to Carlo Fofana pt in stable condition. Total I&O's Ileo: 750-80= 670ml urine: 500ml intake: NPO
--- NOTE | 2018-09-22 19:34 | NUR ---
NURSE NOTES: Patient in bed awake and oriented. VSS. No SOB noted. Ileo on med intermittent suction. Flushed Ileo per MD's order. PICC line is clean and intact. No pain. Needs attended. Call light within reach. bed is locked and in low position. In stable condition.
[2018-09-22 20:00] VITALS: BP 131/77
[2018-09-22] MEDS: Dyna-Hex 2% Top Sol 2oz TOPIC SCH (20:00)
[2018-09-22] MEDS: Fat Emulsion Iv 20% 240 ML in Tpn 1,920 ML IV SCH (20:00)
[2018-09-22] MEDS: D5 1/2NS w/KCl 20mEq 1,000 ML IV SCH (20:00)
[2018-09-23] VITALS: BP 111/58
[2018-09-23 04:00] VITALS: BP 116/60
[2018-09-23 05:04] LABS: ALANINE AMINOTRANSFERASE 44 U/L (12-78); ALBUMIN 2.8 G/DL (3.4-5.0); ALBUMIN/GLOBULIN RATIO 0.7 (1.0-2.7); ALKALINE PHOSPHATASE 87 U/L (46-116); ANION GAP 5 mmol/L (5-15); ASPARTATE AMINO TRANSFERASE 33 U/L (15-37); BILIRUBIN,TOTAL 0.5 MG/DL (0.2-1.0); BLOOD UREA NITROGEN 14 mg/dL (7-18); CALCIUM 8.9 MG/DL (8.5-10.1); CARBON DIOXIDE 25 MMOL/L (21-32); CHLORIDE 105 MMOL/L (98-107); CREATININE 1.1 MG/DL (0.55-1.30); PHOSPHORUS 3.6 MG/DL (2.5-4.9); POTASSIUM 3.9 MMOL/L (3.5-5.1); SODIUM 135 MMOL/L (136-145)
[2018-09-23] MEDS: NovoLOG Insulin Flexpen SUBQ SCH ×4 (06:00→17:37)
--- NOTE | 2018-09-23 07:50 | NUR ---
NURSE NOTES: Received report from Carlo Fofana pt a/a/o x4 laying in bed with no signs of distress or other issues at this time. pt was able to tolerate his BCIR diet with no signs of n/v or cramping at this time. PICC line on the right upper arm running with TPN@90ml/hr and IVF d51/2NS+20mEq@40ml/hr. continues strict I&O's. Ileostomy in place with low intermittent wall suction, total ileo output during shift manager: 470ml. total urine: 400ml. saud light within reach. bed in lowest position. side rales up x2. I will f/u as needed.
[2018-09-23 08:00] VITALS: BP 116/72
[2018-09-23] MEDS: Loperamide 2mg cap ORAL SCH ×2 (09:20→17:36)
--- NOTE | 2018-09-23 10:06 | NUR ---
RD ASSESSMENT & RECOMMENDATIONS SEE CARE ACTIVITY FOR COMPLETE ASSESSMENT DAILY ESTIMATED NEEDS: Needs based on Surgery/ 83.5 kg abw 25-30 kcals/kg 9813-8644 total kcals 1-2 g protein/kg 84-167 g total protein 25-30 mL/kg 7664-7611 total fluid mLs NUTRITION DIAGNOSIS: Altered GI function R/T h/o granulomatous colitis as evidenced by admitted for malfunctioning Crowder continent ileostomy, s/p exploratory laparotomy revision of continent pouch,incisional hernia repair, was off TPN and tolerating BCIR low fiber/ low residue diet w/ good po intake, but now back on TPN, diet now advanced to BCIR, w/ saucedo inserted to BCIR pouch and connected to medium intermittent suction. CURRENT DIET: Now BCIR PO DIET RECOMMENDATIONS: BCIR as tolerated PARENTERAL NUTRITION RECOMMENDATIONS: D/AA Rate: 80 IL Rate: 10 Total Rate: 90 Volume: 2160 % Dextrose: 18 % AA: 5.5 Energy (kcals/kg): 2077 Protein (g/kg protein): 105 Nonprotein KCALS: 1655 GIR (mg CHO/kg/min): 2.87 % Fat KCALS: 23 NCP: N Ratio: 100 TPN Comment: * Continue current TPN: D18% AA5.5% @ 80ml/hr + IL20% @ 10ml/hr-> total of 90ml/hr, all 3:1 * TPN @ goal will provide 100% est kcal and prot needs (25kcal/1.26g prot per kg abw) * With continued food tolerance, rec to start tapering TPN by 25%, goal of 67ml/hr ----- ADDITIONAL RECOMMENDATIONS: * Rec updated standing wt for accurate CBW * Monitor BGs, lytes, LFTs daily w/ TPN Mg Low (1.6), good glycemic control. * Monitor for diet initiation per MD-> now on BCIR (09/23) .
[2018-09-23 12:00] VITALS: BP 101/51
--- NOTE | 2018-09-23 14:57 | NUR ---
*-* INSURANCE *-* UPDATED CLINICALS HAVE BEEN FAXED TO: PER ADMITTING FAX CLINICALS TO f- [phone]
--- NOTE | 2018-09-23 15:58 | NUR ---
POT RUNNERRELATIONSHIP BANKER SI:ENTEROSTOMY MALFUNCTION VS: BP 101/51, P 75, T 98.3, RR 18, SpO2 96 Na 135 IS:MAGNESIUM SULFATE 100ml IVPB NOVOLOG SUBQ IMODIUM 2mg PLAN: RESUME BCIR DIET IN AM BCRI CATHETER TO SUCTION 3E MED/SURG STATUS
[2018-09-23 16:00] VITALS: BP 110/65
--- NOTE | 2018-09-23 16:16 | General Progress Note ---
Progress Note Progress Note AVSS Tolerating npo and TPN and continuous suction to Crowder pouch, but continued very watery high volume output and low albumin (2.8) despite significant TPN Abdomen soft. No leaking of stool around ileostomy catheter. Urine 900 Ileo 1140 Imp. Stable with low albumin and watery ileostomy effluent Plan: BCIR low residue diet to see if effluent thickens and if there is any incontinence GI evaluation re persistent low albumin despite TPN and output issues Wallace Valdez MD Sep 23, 2018 16:16
--- NOTE | 2018-09-23 19:15 | NUR ---
HAND-OFF: Report given to Carlo Fofana pt in stable condition. Total I&O's total Ileo: 1100-80 = 1020ml total urine: 470ml total oral intake:500ml Breakfast, Lunch and diner = 100% (BCIR diet)
--- NOTE | 2018-09-23 19:40 | NUR ---
NURSE NOTES: Patient in bed awake and oriented. VSS. No SOB noted. Ileo is on med intermittent suction. Flushed Ileo. PICC line dressing is clean and dry. TPN running and tolerated well. No N&V. Needs attended. Call light within reach. In stable condition.
[2018-09-23 20:00] VITALS: BP 115/66
[2018-09-23] MEDS: D5 1/2NS w/KCl 20mEq 1,000 ML IV SCH (20:00)
[2018-09-23] MEDS: Dyna-Hex 2% Top Sol 2oz TOPIC SCH (20:00)
[2018-09-23] MEDS: Phytonadione 10 mg/mL 1ml amp SUBQ SCH (20:00)
[2018-09-23] MEDS: Fat Emulsion Iv 20% 240 ML in Tpn 1,920 ML IV SCH (20:00)
[2018-09-24] VITALS: BP 114/72
[2018-09-24 04:00] VITALS: BP 126/73
[2018-09-24] MEDS: Loperamide 2mg cap ORAL SCH ×3 (05:36→17:44)
[2018-09-24] MEDS: NovoLOG Insulin Flexpen SUBQ SCH ×5 (05:36→23:35)
[2018-09-24 06:59] LABS: ALANINE AMINOTRANSFERASE 41 U/L (12-78); ALBUMIN/GLOBULIN RATIO 0.8 (1.0-2.7); ALKALINE PHOSPHATASE 84 U/L (46-116); ANION GAP 8 mmol/L (5-15); ASPARTATE AMINO TRANSFERASE 31 U/L (15-37); BILIRUBIN,TOTAL 0.5 MG/DL (0.2-1.0); BLOOD UREA NITROGEN 13 mg/dL (7-18); CALCIUM 8.8 MG/DL (8.5-10.1); CARBON DIOXIDE 27 MMOL/L (21-32); CHLORIDE 104 MMOL/L (98-107); POTASSIUM 4.1 MMOL/L (3.5-5.1); SODIUM 139 MMOL/L (136-145)
--- NOTE | 2018-09-24 07:57 | NUR ---
NURSE NOTES: Received report from Carlo MACKAY. Patient is awake alert and oriented, no acute distress noted, reporting no pain. JONATHAN PICC running IVF and TPN as ordered, PICC line dressing clean and dry, patient tolerated breakfast well, no reports of N/V, cramping or bloating. Ileo to intermittent medium suction. Patient updated on plan of care for the day. Side rails upx2, bed low and locked, call light in reach. Will continue to monitor.
[2018-09-24 08:00] VITALS: BP 125/75
--- NOTE | 2018-09-24 09:22 | NUR ---
*-* INSURANCE *-* ALL CLINICAL OF 09/01/18 TO PRESENT HAVE BEEN FAXED TO: PER ADMITTING FAX CLINICALS TO [facility] [place] F- [phone]
--- NOTE | 2018-09-24 10:18 | GI Initial Consult Note ---
History of Present Illness General Date patient seen: Sep 24, 2018 Time patient seen: 10:05 Referring physician: NELLIE Reason for Consultation: HIGH OUTPUT VIA ILLEOSTOMY Present Illness HPI The patient is a 63-year-old male in overall stable health, who has a malfunctioning Crowder continent ileostomy as well as recurrent incisional hernia. The patient developed granulomatous colitis and in 1992 underwent proctocolectomy with Kathy ileostomy. In 1996 in [facility], he underwent conversion of his conventional ileostomy to a Crowder type of Kock pouch continent ileostomy. 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 The patient for the past year or two has been having intermittent incontinence, but no difficulty intubating. He underwent endoscopy of his pouch in [place] in February 2017 which revealed a shortened nipple valve but the pouch itself was healthy. He states that a conventional Kathy ileostomy is not an option for him. While he has intermittent incontinence, this has been increasing recently. He has had pain around the stoma with granulation tissue. He has chronic pouchitis with episodes 2 to 3 times a month. He has taken Flagyl and Cipro and irrigated his pouch with L-glutamine. He is scheduled to undergo laparotomy with revision of his Crowder continent ileostomy, likely creating a new valve and stoma and repair of recurrent incisional hernia. GI consulted for reported high output through the Kock pouch ileostomy and low albumin levels. Patient was seen, awake alert and oriented x4, no apparent distress. Denies any abdominal pain, denies any nausea vomiting. The patient is currently an inpatient here at [facility] for approximately 1 week and reported to have excessive amounts of output at times greater than 2 L daily through his ileostomy. During his current admission, the patient underwent a laparotomy with complex revision of the Crowder continent ileostomy valve with extensive lysis of adhesions. Also repair of the recurrent incisional hernia utilizing atrium mosaic coated polypropylene mesh. The patient is currently on his second day of Imodium 3 times daily to help decrease GI motility. In terms of albumin level, the patient's albumin has been constantly steady at approximately 3.0. The patient reports his normal albumin levels are around 4.5. The patient notes that over 20 years ago he had a severe reaction to Lomotil in which she was hospitalized. Home Meds Reported Medications [[email or web address]] No Conflict Check, 25 MG PO EVERY OTHER DAY 09/01/18 B12/Levomefolate Calcium/B-6 (FOLBIC RF TABLET) 1 Each Tablet, 1 EACH PO, TAB 09/01/18 Vitamin D (Vitamin D3) 400 Unit Tablet, 2000 UNITS ORAL DAILY, TAB 09/01/18 Folic Acid (FOLIC ACID) 0.4 Mg Tablet, 0.4 MG ORAL DAILY, TAB 09/01/18 Omeprazole/Sodium Bicarbonate (ZEGERID OTC 20-1,100 MG CAP) 1 Each Capsule, 1 EACH ORAL DAILY, CAP 09/01/18 Med list reviewed/reconciled: Yes Allergies: Coded Allergies: NO KNOWN ALLERGIES (Verified Allergy, Unknown, 09/01/18) Patient History PMH Narrative 1. Malfunctioning Crowder continent ileostomy with incontinence due to deficient valve. 2. Painful stoma. 3. Recurrent pouchitis. 4. Incisional hernia. 5. History of granulomatous colitis . 6. Status post multiple abdominal operations. 6.1. Proctocolectomy and Kathy ileostomy in 1992. 6.2. Crowder continent ileostomy in 1996. 6.3. Repair of Crowder continent ileostomy enterocutaneous fistula and revision of stoma with abdominoperineal resection and extensive lysis of adhesions in July 2013 (all these operations were done elsewhere). Social History: Denies: smoking, alcohol use, drug use, other Review of Systems All Other Systems: negative except mentioned in HPI Physical Exam Vital Signs Date Time Temp Pulse Resp B/P (MAP) Pulse Ox O2 Delivery O2 Flow Rate FiO2 09/20/18 08:00 98.2 65 18 108/61 (77) 95 09/20/18 09:00 Room Air Sp02 EP Interpretation: reviewed, normal Labs Laboratory Tests Test 09/24/18 05:00 Sodium Level 139 MMOL/L (136-145) Potassium Level 4.1 MMOL/L (3.5-5.1) Chloride Level 104 MMOL/L (98-107) Carbon Dioxide Level 27 MMOL/L (21-32) Anion Gap 8 mmol/L (5-15) Blood Urea Nitrogen 13 mg/dL (7-18) Creatinine 1.0 MG/DL (0.55-1.30) Estimat Glomerular Filtration Rate > 60 mL/min (>60) Glucose Level 114 MG/DL (74-106) H Calcium Level 8.8 MG/DL (8.5-10.1) Magnesium Level 2.0 MG/DL (1.8-2.4) Total Bilirubin 0.5 MG/DL (0.2-1.0) Aspartate Amino Transf (AST/SGOT) 31 U/L (15-37) Alanine Aminotransferase (ALT/SGPT) 41 U/L (12-78) Alkaline Phosphatase 84 U/L (46-116) Total Protein 6.8 G/DL (6.4-8.2) Albumin 3.0 G/DL (3.4-5.0) L Globulin 3.8 g/dL Albumin/Globulin Ratio 0.8 (1.0-2.7) L General Appearance: well appearing, no apparent distress, alert Head: normocephalic EENT: PERRL/EOMI, normal ENT inspection Neck: supple Respiratory: normal breath sounds, no respiratory distress Cardiovascular: normal rate Gastrointestinal: normal inspection, non tender, soft, normal bowel sounds, non -distended, other - illeostomy Rectal: deferred Genitourinary: deferred Musculoskeletal: normal inspection, back normal Neurologic: normal inspection, alert, oriented x3, responsive Psychiatric: normal inspection, judgement/insight normal, memory normal Skin: normal inspection, normal color, no rash, warm/dry, palpation normal, well hydrated Lymphatic: normal inspection, no adenopathy Current Medications Current Medications Medications (Trade) Dose Ordered Sig/Nikos Route PRN Reason Start Time Stop Time Status Last Admin Dose Admin Acetaminophen (Tylenol) 650 mg Q4H PRN ORAL Mild Pain/Temp > 100.2 09/02/18 11:45 10/02/18 11:44 Acetaminophen/ Hydrocodone Bitart ([place] 10/325) 1 tab Q4H PRN ORAL Pain 4-10 09/18/18 12:30 09/25/18 12:29 Ascorbic Acid (Vitamin C) 500 mg Q4H PRN ORAL Constipation 09/09/18 13:10 10/09/18 13:09 09/15/18 00:05 Chlorhexidine Gluconate (Veronica-Hex 2%) 1 applic DAILY@1999 TOPIC 09/17/18 20:00 10/17/18 19:59 09/23/18 20:00 Dextrose 1,000 ml @ 0 mls/hr Q24H PRN IV PN interrupted or unavailable 09/16/18 08:15 10/16/18 08:14 Dextrose (Dextrose 50%) 25 ml Q30M PRN IV Hypoglycemia 09/16/18 08:15 10/16/18 08:14 Dextrose (Dextrose 50%) 50 ml Q30M PRN IV Hypoglycemia 09/16/18 08:15 10/16/18 08:14 Dextrose/ Electrolytes 1,000 ml @ 40 mls/hr Q24H IV 09/16/18 20:00 10/16/18 19:59 09/23/18 20:00 Famotidine (Pepcid) 20 mg BID ORAL 09/08/18 18:00 10/08/18 17:59 09/24/18 08:40 Fat Emulsion Intravenous 240 ml/Amino Acids/ Electrolytes/ Dextrose 2,160 ml @ 90 mls/hr Q24H IV 09/16/18 20:00 10/16/18 19:59 09/23/18 20:00 Insulin Aspart (NovoLOG) Q6HR SUBQ 09/17/18 00:00 10/17/18 00:00 09/23/18 17:37 Lidocaine HCl (Xylocaine Jelly 2%) 1 applic Q2H PRN TOPIC peristomal pain 09/15/18 17:00 10/15/18 16:59 09/17/18 06:46 Loperamide HCl (Imodium) 2 mg TID@0600,0900,1800 ORAL 09/23/18 18:00 10/23/18 17:59 09/24/18 08:40 Ondansetron HCl (Zofran ODT) 4 mg Q4H PRN ORAL Nausea & Vomiting 09/08/18 10:15 10/08/18 10:14 09/14/18 05:51 Phytonadione (Vitamin K) 10 mg ONCE A WEEK SUBQ 09/16/18 20:00 10/16/18 19:59 09/23/18 20:00 Simethicone (Mylicon) 80 mg QIDPRN PRN ORAL Abdominal cramps 09/13/18 09:15 10/13/18 09:14 GI: Plan Problems: (1) Dehydration (2) Hypoalbuminemia (3) MALFUNCTIONING CROWDER CONTINENT ILEOSTOMY Plan Continue current treatment of time schedule of Imodium. consider Tincture of Opium to decrease GI motility if Imodium trial fails Avoid Lomotil due to history of severe reaction Monitor albumin, replace as necessary TPN electrolyte correction collect for cdiff hold ppi, ok with H2B will follow along with additional recommendations Discussed with Dr. Chirinos. Thank you for this patient referral, we will follow. The patient was seen and examined at bedside and all new and available data was reviewed in the patients chart. I agree with the above findings, impression and plan. (Patient seen earlier today. Signature stamp does not reflect patient encounter time.). - MD Chio [facility]ersonSan [facility] Sep 24, 2018 10:17
[2018-09-24 12:00] VITALS: BP 119/72
--- NOTE | 2018-09-24 13:21 | General Progress Note ---
Progress Note Progress Note AVSS Doing well tolerating BCIR diet and no leaking of stool around Crowder pouch catheter Abdomen soft BCIR ileo 1540 Urine 870 Labs okay with Mg 2.0 but albumin still below normal Imp. Improving Plan: Await Dr. Chirinos assessment regarding low albumin despite TPN and high volume ileo output despite Imodium Trial of self-intubations tomorrow Wallace Valdez MD Sep 24, 2018 13:21
[2018-09-24] MEDS ORDERED: HYDROcodone/Acetamin 10/325 tab ORAL PRN (13:23)
--- NOTE | 2018-09-24 14:37 | NUR ---
QUALITY IMPROVEMENT ENGINEERBOWLING FLOOR DESK CLERK SI:ENTEROSTOMY MALFUNCTION VS: BP 125/75, P 87, T 98.1, RR 16, SpO2 94 IS:NOVOLOG SUBQ PEPCID 20mg IMODIUM 2mg FAT EMULSION 2160ml IV D5/ELECTROLYTES PLAN: Plan: Await Dr. Chriinos assessment regarding low albumin despite TPN and high volume ileo output despite Imodium Trial of self-intubations tomorrow. 3E MED/SURG STATUS
[2018-09-24 16:00] VITALS: BP 113/66
--- NOTE | 2018-09-24 18:19 | NUR ---
NURSE NOTES: Total ileo output for my shift: +1180mL Total urine output: 560mL Patient output thinner than earlier following additional flushing and patient drinking grape juice. Patient no longer reporting cramping or bloating feeling, output draining well to wall suction.
--- NOTE | 2018-09-24 19:11 | NUR ---
HAND-OFF: Report given to Claudine MACKAY. Patient is in stable condition.
--- NOTE | 2018-09-24 19:20 | NUR ---
NURSE NOTES: Received report & pt from THOMPSON Smalls. Pt lying in bed, a&ox4, in room air. No s/s of acute distress & no c/o pain at this time. Pt c/o nausea & will give PRN Zofran. Ileo cath intact & connected to wall suction (intermittent, medium), surgical dressing C/D/I. PICC line intact with IVF & TPN running as ordered. Bed in lowest position, call light within reach. Will continue to monitor.
[2018-09-24] MEDS: Dyna-Hex 2% Top Sol 2oz TOPIC SCH (19:39)
[2018-09-24] MEDS: D5 1/2NS w/KCl 20mEq 1,000 ML IV SCH (19:43)
[2018-09-24 20:00] VITALS: BP 101/73
--- NOTE | 2018-09-24 20:30 | NUR ---
NURSE NOTES: Changed PICC line dressing. Pt tolerated very well. No bleeding. Will continue to monitor.
[2018-09-24] MEDS: Fat Emulsion Iv 20% 240 ML in Tpn 1,920 ML IV SCH (20:38)
[2018-09-25] VITALS: BP 112/63
[2018-09-25 04:30] VITALS: BP 113/71
[2018-09-25] MEDS: Loperamide 2mg cap ORAL SCH ×4 (05:30→18:38)
[2018-09-25] MEDS: NovoLOG Insulin Flexpen SUBQ SCH ×4 (05:58→23:48)
--- NOTE | 2018-09-25 07:15 | NUR ---
NURSE NOTES: Report received from Claudine RN, rounds made. Patient resting in semi-fowlers position in bed. Alert, oriented x4 calm. No distress on RA. Denies pain, no NV, appetite fair with breakfast. IVF (D5 1/2 NS +20 KCL ) infusing at 40 ml/hr and TPN infusing at 90 ml/hr to Right PICC, dressing CDI, site asymptomatic. RLQ ileostomy dressing CDI, to medium intermittent suction, dark brown/green liquid output noted to canister. Voids per urinal dark jef output, no odor. Encouraged IS use, verbalized understanding. Call light in reach, bed in lowest position, will continue to monitor.
[2018-09-25 07:16] LABS: BASOPHILS % (AUTO) 0.7 % (0.0-2.0); EOSINOPHILS % (AUTO) 13.9 % (0.0-3.0); HEMATOCRIT 47.5 % (42.0-52.0); HEMOGLOBIN 15.6 G/DL (14.2-18.0); LYMPHOCYTES % (AUTO) 22.4 % (20.0-45.0); MEAN CORPUSCULAR VOLUME 94 FL (80-99); MONOCYTES % (AUTO) 9.6 % (1.0-10.0); NEUTROPHILS % (AUTO) 53.3 % (45.0-75.0); PLATELET COUNT 182 K/UL (150-450); RED BLOOD COUNT 5.04 M/UL (4.70-6.10); RED CELL DISTRIBUTION WIDTH 11.8 % (11.6-14.8)
[2018-09-25 07:18] LABS: ALANINE AMINOTRANSFERASE 23 U/L (12-78); ALBUMIN 2.9 G/DL (3.4-5.0); ALBUMIN/GLOBULIN RATIO 0.7 (1.0-2.7); ALKALINE PHOSPHATASE 81 U/L (46-116); ANION GAP 7 mmol/L (5-15); ASPARTATE AMINO TRANSFERASE 10 U/L (15-37); BILIRUBIN,TOTAL 0.5 MG/DL (0.2-1.0); BLOOD UREA NITROGEN 14 mg/dL (7-18); CALCIUM 9.1 MG/DL (8.5-10.1); CARBON DIOXIDE 26 MMOL/L (21-32); CHLORIDE 106 MMOL/L (98-107); CREATININE 0.9 MG/DL (0.55-1.30); PHOSPHORUS 3.3 MG/DL (2.5-4.9); SODIUM 139 MMOL/L (136-145)
--- NOTE | 2018-09-25 07:30 | NUR ---
HAND-OFF: Report given to THOMPSON Parmar. Pt in stable condition. Rounds done.
[2018-09-25 08:00] VITALS: BP 121/75
--- NOTE | 2018-09-25 08:04 | General Progress Note ---
Progress Note Progress Note AVSS Eating well with high ileostomy output during the mornings, then less as day progresses. No leaking of stool around Crowder pouch catheter while on suction. TPN continues with low albumin Dr. Chirinos GI input appreciated Abdomen soft BCIR ileo 1680 thicker than yesterday C.diff pending labs ok Imp. Crowder continent ileostomy valve fistula Plan: Trial of BCIR RN supervised self-intubations starting this morning. If incontinent, will try indwelling catheter to gravity drainage and if still leaks will need re-operation Wallace Valdez MD Sep 25, 2018 08:04
--- NOTE | 2018-09-25 10:11 | NUR ---
*-* INSURANCE *-* UPDATED CLINICALS AND REVIEWS HAVE BEEN FAXED TO: PER ADMITTING FAX CLINICALS TO f- [phone]
--- NOTE | 2018-09-25 10:36 | GI Progress Note ---
Assessment/Plan Problems: (1) MALFUNCTIONING GUERRERO CONTINENT ILEOSTOMY (2) Hypoalbuminemia ICD Codes: E88.09 - Other disorders of plasma-protein metabolism, not elsewhere classified SNOMED: 381644448 (3) Dehydration ICD Codes: E86.0 - Dehydration SNOMED: 75152922 Status: progressing Status Narrative Discussed with Dr. Chirinos. Assessment/Plan cdiff negative ileostomy output downtrending Continue current treatment of time schedule of Imodium. consider Tincture of Opium to decrease GI motility if Imodium trial fails Avoid Lomotil due to history of severe reaction Monitor albumin, replace as necessary TPN electrolyte correction collect for cdiff ppi will follow along with additional recommendations The patient was seen and examined at bedside and all new and available data was reviewed in the patients chart. I agree with the above findings, impression and plan. (Patient seen earlier today. Signature stamp does not reflect patient encounter time.). - Brian Chirinos MD Subjective Gastrointestinal/Abdominal: Reports: no symptoms Objective Last 24 Hour Vital Signs Date Time Temp Pulse Resp B/P (MAP) Pulse Ox O2 Delivery O2 Flow Rate FiO2 09/25/18 08:00 98.2 83 18 121/75 (90) 95 09/25/18 04:30 97.9 78 18 113/71 (85) 94 09/25/18 00:00 97.6 88 18 112/63 (79) 95 09/24/18 20:22 Room Air 09/24/18 20:00 98.4 96 20 101/73 (82) 95 09/24/18 16:00 98.7 86 18 113/66 (82) 95 09/24/18 12:00 98.1 87 16 119/72 (88) 95 Intake and Output 09/24/18 09/25/18 19:00 07:00 Intake Total 2270 ml 1670 ml Output Total 1740 ml 1700 ml Balance 530 ml -30 ml Intake Oral 840 ml 240 ml IV Total 1430 ml 1430 ml Output Urine Total 560 ml 1200 ml Other 1180 ml 500 ml Laboratory Tests Test 09/25/18 05:00 White Blood Count 8.0 K/UL (4.8-10.8) Red Blood Count 5.04 M/UL (4.70-6.10) Hemoglobin 15.6 G/DL (14.2-18.0) Hematocrit 47.5 % (42.0-52.0) Mean Corpuscular Volume 94 FL (80-99) Mean Corpuscular Hemoglobin 31.0 PG (27.0-31.0) Mean Corpuscular Hemoglobin Concent 32.9 G/DL (32.0-36.0) Red Cell Distribution Width 11.8 % (11.6-14.8) Platelet Count 182 K/UL (150-450) Mean Platelet Volume 12.1 FL (6.5-10.1) H Neutrophils (%) (Auto) 53.3 % (45.0-75.0) Lymphocytes (%) (Auto) 22.4 % (20.0-45.0) Monocytes (%) (Auto) 9.6 % (1.0-10.0) Eosinophils (%) (Auto) 13.9 % (0.0-3.0) H Basophils (%) (Auto) 0.7 % (0.0-2.0) Sodium Level 139 MMOL/L (136-145) Potassium Level 4.0 MMOL/L (3.5-5.1) Chloride Level 106 MMOL/L (98-107) Carbon Dioxide Level 26 MMOL/L (21-32) Anion Gap 7 mmol/L (5-15) Blood Urea Nitrogen 14 mg/dL (7-18) Creatinine 0.9 MG/DL (0.55-1.30) Estimat Glomerular Filtration Rate > 60 mL/min (>60) Glucose Level 111 MG/DL (74-106) H Calcium Level 9.1 MG/DL (8.5-10.1) Phosphorus Level 3.3 MG/DL (2.5-4.9) Magnesium Level 1.8 MG/DL (1.8-2.4) Total Bilirubin 0.5 MG/DL (0.2-1.0) Aspartate Amino Transf (AST/SGOT) 10 U/L (15-37) L Alanine Aminotransferase (ALT/SGPT) 23 U/L (12-78) Alkaline Phosphatase 81 U/L (46-116) Total Protein 6.8 G/DL (6.4-8.2) Albumin 2.9 G/DL (3.4-5.0) L Globulin 3.9 g/dL Albumin/Globulin Ratio 0.7 (1.0-2.7) L Height (Feet): 5 Height (Inches): 11.00 Weight (Pounds): 215 General Appearance: WD/WN, no apparent distress, alert Cardiovascular: normal rate Respiratory/Chest: normal breath sounds, no respiratory distress Abdominal Exam: normal bowel sounds, non tender, soft, other - ileostomy Extremities: non-tender Ashok Barroso NP Sep 25, 2018 10:36
--- NOTE | 2018-09-25 10:53 | NUR ---
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 Tincture of Opium to decrease GI motility if Imodium trial fails 3E MED/SURG STATUS
[2018-09-25 12:00] VITALS: BP 136/75
--- NOTE | 2018-09-25 14:53 | NUR ---
*-* INSURANCE *-* UPDATED CLINICALS AND REVIEWS HAVE BEEN FAXED TO: PER ADMITTING FAX CLINICALS TO f- [phone]
[2018-09-25 16:00] VITALS: BP 137/71
--- NOTE | 2018-09-25 19:30 | NUR ---
HAND-OFF: Report given to Diego MACKAY. Addendum: 09/25/18 at 7 by Agata Polo RN Outputs: Urine 850 ml Ileostomy: 785 ml
--- NOTE | 2018-09-25 19:30 | NUR ---
NURSE NOTES: Pt lying in bed w/bed in lowest position and call light within reach. Pt A&Ox4, VSS, and in no apparent distress at this time. JONATHAN PICC line intact/asymptomatic w/IVF & TPN infusing; and surgical dressing C/D/I. Pt requests to intubate at 1999; will return then to observe. Will continue to monitor.
[2018-09-25] MEDS: Fat Emulsion Iv 20% 240 ML in Tpn 1,920 ML IV SCH (19:54)
[2018-09-25] MEDS: Dyna-Hex 2% Top Sol 2oz TOPIC SCH (19:55)
[2018-09-25] MEDS: D5 1/2NS w/KCl 20mEq 1,000 ML IV SCH ×2 (19:55→23:45)
[2018-09-25 20:00] VITALS: BP 119/68
[2018-09-26] VITALS (7 sets, daily range): BP systolic 115–140; BP diastolic 66–76
[2018-09-26] MEDS: Loperamide 2mg cap ORAL SCH ×3 (05:57→18:12)
[2018-09-26] MEDS: NovoLOG Insulin Flexpen SUBQ SCH ×4 (06:00→23:50)
[2018-09-26 06:07] LABS: BASOPHILS % (AUTO) 1.1 % (0.0-2.0); EOSINOPHILS % (AUTO) 14.7 % (0.0-3.0); HEMATOCRIT 46.3 % (42.0-52.0); HEMOGLOBIN 15.2 G/DL (14.2-18.0); LYMPHOCYTES % (AUTO) 24.1 % (20.0-45.0); MEAN CORPUSCULAR VOLUME 93 FL (80-99); MONOCYTES % (AUTO) 10.2 % (1.0-10.0); NEUTROPHILS % (AUTO) 49.9 % (45.0-75.0); PLATELET COUNT 178 K/UL (150-450); RED BLOOD COUNT 4.95 M/UL (4.70-6.10); RED CELL DISTRIBUTION WIDTH 11.9 % (11.6-14.8); WHITE BLOOD COUNT 7.7 K/UL (4.8-10.8)
[2018-09-26 06:20] LABS: ANION GAP 8 mmol/L (5-15); BLOOD UREA NITROGEN 14 mg/dL (7-18); CALCIUM 8.7 MG/DL (8.5-10.1); CARBON DIOXIDE 27 MMOL/L (21-32); CHLORIDE 105 MMOL/L (98-107); POTASSIUM 3.6 MMOL/L (3.5-5.1); SODIUM 140 MMOL/L (136-145)
--- NOTE | 2018-09-26 07:20 | NUR ---
NURSE NOTES: Report received from Diego MACKAY, rounds made. Patient resting in semi-fowlers position in bed. Alert, oriented x4, calm. No distress on RA. Denies pain at this time. Tolerating BCIR low residue breakfast, no NV. Right PICC dressing CDI. IVF (D5 1/2 NS +20 KCL at 40 ml/hr and TPN 90 ml/hr) infusing as ordered. RLQ ileostomy dressing CDI. Voids per urinal, without difficulty. Reinforced IS use. Call light in reach, bed in lowest position, will continue to monitor.
--- NOTE | 2018-09-26 07:22 | NUR ---
HAND-OFF: Report given to THOMPSON Parmar.
[2018-09-26] MEDS: Simethicone 80mg tab ORAL PRN ×3 (08:48→23:45)
--- NOTE | 2018-09-26 10:51 | GI Progress Note ---
Assessment/Plan Problems: (1) MALFUNCTIONING GUERRERO CONTINENT ILEOSTOMY (2) Hypoalbuminemia ICD Codes: E88.09 - Other disorders of plasma-protein metabolism, not elsewhere classified SNOMED: 605136631 (3) Dehydration ICD Codes: E86.0 - Dehydration SNOMED: [id number] Status: unchanged Status Narrative Discussed with Dr. Chirinos Assessment/Plan cdiff negative ileostomy output similar to prior day Continue current treatment of time schedule of Imodium. consider Tincture of Opium to decrease GI motility Avoid Lomotil due to history of severe reaction Monitor albumin, replace as necessary TPN electrolyte correction ppi will follow along with additional recommendations The patient was seen and examined at bedside and all new and available data was reviewed in the patients chart. I agree with the above findings, impression and plan. (Patient seen earlier today. Signature stamp does not reflect patient encounter time.). - Brian Chirinos MD Subjective Subjective Patient is now self suctioning ileostomy Objective Last 24 Hour Vital Signs Date Time Temp Pulse Resp B/P (MAP) Pulse Ox O2 Delivery O2 Flow Rate FiO2 09/26/18 08:00 98.2 81 19 127/66 (86) 97 09/26/18 04:00 98.1 79 18 118/75 (89) 94 09/26/18 00:00 98.5 83 18 139/76 (97) 95 09/25/18 21:00 Room Air 09/25/18 20:00 98.9 88 18 119/68 (85) 99 09/25/18 16:00 99.0 92 18 137/71 (93) 95 09/25/18 12:00 99.5 89 18 136/75 (95) 96 Intake and Output 09/25/18 09/26/18 19:00 07:00 Intake Total 2625 ml 1720 ml Output Total 1635 ml 1465 ml Balance 990 ml 255 ml Intake Oral 1065 ml 240 ml IV Total 1560 ml 1480 ml Output Urine Total 850 ml 925 ml Other 785 ml 540 ml Laboratory Tests Test 09/26/18 05:00 White Blood Count 7.7 K/UL (4.8-10.8) Red Blood Count 4.95 M/UL (4.70-6.10) Hemoglobin 15.2 G/DL (14.2-18.0) Hematocrit 46.3 % (42.0-52.0) Mean Corpuscular Volume 93 FL (80-99) Mean Corpuscular Hemoglobin 30.7 PG (27.0-31.0) Mean Corpuscular Hemoglobin Concent 32.8 G/DL (32.0-36.0) Red Cell Distribution Width 11.9 % (11.6-14.8) Platelet Count 178 K/UL (150-450) Mean Platelet Volume 12.8 FL (6.5-10.1) H Neutrophils (%) (Auto) 49.9 % (45.0-75.0) Lymphocytes (%) (Auto) 24.1 % (20.0-45.0) Monocytes (%) (Auto) 10.2 % (1.0-10.0) H Eosinophils (%) (Auto) 14.7 % (0.0-3.0) H Basophils (%) (Auto) 1.1 % (0.0-2.0) Sodium Level 140 MMOL/L (136-145) Potassium Level 3.6 MMOL/L (3.5-5.1) Chloride Level 105 MMOL/L (98-107) Carbon Dioxide Level 27 MMOL/L (21-32) Anion Gap 8 mmol/L (5-15) Blood Urea Nitrogen 14 mg/dL (7-18) Creatinine 1.0 MG/DL (0.55-1.30) Estimat Glomerular Filtration Rate > 60 mL/min (>60) Glucose Level 108 MG/DL (74-106) H Calcium Level 8.7 MG/DL (8.5-10.1) Height (Feet): 5 Height (Inches): 11.00 Weight (Pounds): 215 General Appearance: WD/WN, no apparent distress, alert Cardiovascular: normal rate Respiratory/Chest: normal breath sounds, no respiratory distress Abdominal Exam: normal bowel sounds, non tender, soft Extremities: normal range of motion, non-tender Ashok Barroso IRRADIATED FUEL HANDLER Sep 26, 2018 10:51
--- NOTE | 2018-09-26 13:08 | NUR ---
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 98.9 HR 85 RR 20 B/P 115/71 IS: TPN IV IVF D5@40ML/HR VIT K SUBC MED/SURG STATUS
--- NOTE | 2018-09-26 13:16 | NUR ---
*-* INSURANCE *-* UPDATED CLINICALS AND REVIEWS HAVE BEEN FAXED TO: PER ADMITTING FAX CLINICALS TO f- [phone]
--- NOTE | 2018-09-26 14:25 | General Progress Note ---
Progress Note Progress Note AVSS Since starting BCIR self-intubations yesterday AM he has had no incontinence. However he now feels crampy, gassy, and output with intubation is forceful expulsion of gas and loose stool Abdomen soft Urine 1774 BCIR ileo 1325 (had 3 doses of Imodium yesterday) Labs all okay Imp. Pouchitis Plan: Cipro 500mg po STAT and q12h Flagyl 500mg po STAT and TID Taper and d/c TPN this evening continue IV fluids since he has pouchitis symptoms f/u labs Wallace Valdez MD Sep 26, 2018 14:25
[2018-09-26] MEDS: Ciprofloxacin 500mg tab ORAL SCH ×2 (14:58→20:11)
[2018-09-26] MEDS: metroNIDAZOLE 500mg tab ORAL SCH ×2 (14:58→20:11)
[2018-09-26] MEDS: Hydrocortisone 1% Cr 15gm TOPIC PRN ×2 (18:20→23:52)
--- NOTE | 2018-09-26 19:25 | NUR ---
HAND-OFF: Report given to Rhea MACKAY. Addendum: 09/26/18 at 1948 by Agata Polo RN Outputs: Urine 1000 ml Ileostomy 985 ml
--- NOTE | 2018-09-26 19:30 | NUR ---
NURSE NOTES: Receive a report from THOMPSON Parmar. Done rounds. Pt is awake alert. No pain noted. Discomfort from gas is tolerable state. Will continue to monitor.
[2018-09-26] MEDS: Fat Emulsion Iv 20% 240 ML in Tpn 1,920 ML IV SCH (20:00)
[2018-09-26] MEDS: Dyna-Hex 2% Top Sol 2oz TOPIC SCH (20:10)
[2018-09-26] MEDS: D5 1/2NS w/KCl 20mEq 1,000 ML IV SCH (20:11)
--- NOTE | 2018-09-26 20:30 | NUR ---
NURSE NOTES: Done self-intubation via ileostomy. Gas passing and thick greenish drainage 125ml with 30ml irrigation. Denies pain on op site without infection signs. Discontinue TPN via PICC @ 1999 as ordered. PICC site is clear and flushing with N/S well. Will continue to monitor.
--- NOTE | 2018-09-26 23:45 | NUR ---
NURSE NOTES: Done self-intubation and yellowish to brownish color drainage 125ml with 20ml irrigation via ileostomy. Pt states that taking Simethicone helps to pass gas out and feels comfortable. Will continue to monitor.
[2018-09-27 04:00] VITALS: BP 108/64
[2018-09-27 05:23] LABS: EOSINOPHILS % (AUTO) 14.9 % (0.0-3.0); HEMATOCRIT 47.3 % (42.0-52.0); HEMOGLOBIN 15.5 G/DL (14.2-18.0); LYMPHOCYTES % (AUTO) 19.2 % (20.0-45.0); MEAN CORPUSCULAR VOLUME 93 FL (80-99); MONOCYTES % (AUTO) 9.2 % (1.0-10.0); NEUTROPHILS % (AUTO) 55.7 % (45.0-75.0); PLATELET COUNT 180 K/UL (150-450); WHITE BLOOD COUNT 9.5 K/UL (4.8-10.8)
[2018-09-27 05:39] LABS: ALANINE AMINOTRANSFERASE 37 U/L (12-78); ALBUMIN 2.8 G/DL (3.4-5.0); ALBUMIN/GLOBULIN RATIO 0.7 (1.0-2.7); ALKALINE PHOSPHATASE 81 U/L (46-116); ANION GAP 8 mmol/L (5-15); ASPARTATE AMINO TRANSFERASE 28 U/L (15-37); BILIRUBIN,TOTAL 0.7 MG/DL (0.2-1.0); BLOOD UREA NITROGEN 13 mg/dL (7-18); CALCIUM 8.9 MG/DL (8.5-10.1); CARBON DIOXIDE 25 MMOL/L (21-32); CHLORIDE 107 MMOL/L (98-107); CREATININE 1.1 MG/DL (0.55-1.30); POTASSIUM 3.8 MMOL/L (3.5-5.1); SODIUM 140 MMOL/L (136-145)
[2018-09-27] MEDS: NovoLOG Insulin Flexpen SUBQ SCH (06:00)
--- NOTE | 2018-09-27 06:00 | NUR ---
NURSE NOTES: Pt is awake and alert. Denies pain. Self-intubation done via ileostomy and brownish sticky drainage drained 160ml without irrigation. Pt expresses less gas forming. Will continue to monitor. 12hrs urine output: 990ml 12hrs Ileostomy output: 480ml
[2018-09-27] MEDS: metroNIDAZOLE 500mg tab ORAL SCH ×3 (06:01→21:42)
[2018-09-27] MEDS: Loperamide 2mg cap ORAL SCH ×3 (06:01→17:51)
[2018-09-27] MEDS: Simethicone 80mg tab ORAL PRN ×3 (06:09→17:54)
--- NOTE | 2018-09-27 07:31 | NUR ---
HAND-OFF: Report given to THOMPSON Dominguez. Done rounds.
--- NOTE | 2018-09-27 07:47 | NUR ---
NURSE NOTES: Received report from THOMPSON Wilkerson. Rounding done with outgoing nurse. Pt a/o x 4, in bed. Denies any pain at this time. Abdominal dressing site is C/D/I. Pt mentioned will intubate in a few minutes. Will supervise. Bed in lowest position, call light within reach. Will continue to monitor.
[2018-09-27 08:00] VITALS: BP 118/75
[2018-09-27] MEDS: Ciprofloxacin 500mg tab ORAL SCH ×2 (08:41→20:36)
--- NOTE | 2018-09-27 09:27 | General Progress Note ---
Progress Note Progress Note Feeling much better after starting Cipro and flagyl for pouchitis. Intubating his Crowder Pouch with no incontinence in-between evacuating ABdomen soft Urine 1989 BCIR ileo 1465 thicker than prior labs all satisfactory except albumin 2.8 - TPN stopped yesterday Imp. Improved Plan; d/c IV fluids and remove PIC Hopefully will remain stable and can discharge in AM Rx Cipro 500mg #40; Flagyl 500mg #60 Wallace Valdez MD Sep 27, 2018 09:27
[2018-09-27] MEDS ORDERED: NS Irrig 1000ml ONE (09:40)
[2018-09-27 12:00] VITALS: BP 122/74
--- NOTE | 2018-09-27 12:29 | NUR ---
NURSE NOTES: 28 Bailey, catheter plug, drainage bag, irrigation tray were given to pt as MD ordered.
--- NOTE | 2018-09-27 14:00 | NUR ---
NURSE NOTES: Patient ambulated hallway x 10. Pt in stable condition.
--- NOTE | 2018-09-27 14:14 | NUR ---
CASE MANAGEMENT: REVIEW 09/27/2018 SI:ENTEROSTOMY MALFUNCTION. T 98.1 HR 82 RR 18 B/P 122/74 SATS 94% ON RA LABS TODAY IS:INSULIN ASPART SUBQ Q6H NYSTATIN PO QID PEPCID PO BID FLAGYL PO Q8H DIFLUCAN PO QD CHLORHEXIDINE TOP QD MED/SURG STATUS DCP: PATIENT TO BE DISCHARGED TO HOME ONCE MEDICALLY CLEARED.
[2018-09-27 16:00] VITALS: BP 111/74
--- NOTE | 2018-09-27 19:20 | NUR ---
NURSE NOTES: Report taken from THOMPSON Dominguez. patient is awake and in bed, A&Ox4. No signs of distress on room air. No complaints of pain but is stating that he is feeling some cramping in his abdomen "very diarrhea like". Skin c/d/i, dressings covering stoma c/d no drainage. Continue to assess strict I/O. No IV, MD aware. Potential D/C tomorrow pending MD visit. Bed in lowest position, call light within reach.
--- NOTE | 2018-09-27 19:25 | NUR ---
HAND-OFF: Report given to THOMPSON Dorsey.
[2018-09-27 20:00] VITALS: BP_SYST 102; BP_SYST 108; BP_DIAS 60; BP_DIAS 76
[2018-09-28] VITALS: BP 115/73
[2018-09-28] MEDS: Simethicone 80mg tab ORAL PRN (03:54)
[2018-09-28 04:00] VITALS: BP 118/71
[2018-09-28] MEDS: metroNIDAZOLE 500mg tab ORAL SCH ×2 (06:19→13:34)
[2018-09-28] MEDS: Loperamide 2mg cap ORAL SCH ×2 (06:19→09:52)
--- NOTE | 2018-09-28 06:40 | NUR ---
NURSE NOTES: Patient had a good night. No issues with self-intubating. Outputs below for PM. Ileo: 375cc UO: 550cc
--- NOTE | 2018-09-28 07:15 | NUR ---
NURSE NOTES: Report received from Willian RN, rounds made. Patient resting in semi-fowlers position in bed. No distress on RA. No NV or pain. Appetite good. No IV access. Old PICC line site, skin intact, no redness/swelling. RLQ ileostomy dressing CDI. Self intubating without difficulty. Patient set up to shower. Call light in reach, bed in lowest position. Will continue to monitor.
--- NOTE | 2018-09-28 07:24 | NUR ---
HAND-OFF: Report given to THOMPSON Parmar. Patient is awake and in bed, VS stable.
[2018-09-28 08:00] VITALS: BP 111/68
--- NOTE | 2018-09-28 09:26 | General Progress Note ---
Progress Note Progress Note Continues to do well off TPN and PIC line removed. Abdomen soft, well healed BICR ileo 1475 - he takes 3 Imodium per day Urine 1380 Imp. Doing well Plan: Discharge f/u office 10/01 supplies/limitations/instructions provided/discussed Wallace Valdez MD Sep 28, 2018 09:25
[2018-09-28] MEDS: Ciprofloxacin 500mg tab ORAL SCH (09:52)
[2018-09-28 12:00] VITALS: BP 134/78
--- NOTE | 2018-09-28 15:05 | NUR ---
NURSE NOTES: Discharge instructions reviewed with patient, verbalized understanding. All belongings, discharge instructions and ileostomy supplies (patient only wanted ABD pads), given to patient. Self intubation done without difficulty after lunch, see flowsheet. 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 Discharged home at 1505.
--- NOTE | 2018-09-29 15:40 | NUR ---
*-* INSURANCE *-* UPDATED CLINICALS AND REVIEWS HAVE BEEN FAXED TO: PER ADMITTING FAX CLINICALS TO f- [phone]
--- NOTE | 2018-09-30 09:50 | Discharge Summary ---
Discharge Summary Hospital Course Date of Admission Sep 01, 2018 at 08:30 Date of Discharge Sep 28, 2018 at 16:00 Admitting Diagnosis MALLORY Palencia Case is a 63 year old male who was admitted on Sep 01, 2018 at 08:30 for Malfunctioning Crowder Continent Ileostomy, Procedures s/p 06/02/[address] Valdez s/p revision of partially slipped valve of Crowder continent ileostomy with pouch endoscopy 09/01/18 s/p 09/02/[address] Valdez 1. Laparotomy with complex revision of Crowder continent ileostomy valve with extensive lysis of adhesions. 2. Repair of recurrent incisional hernia utilizing atrium mosaic 03FA coated polypropylene mesh. s/p 09/18/[address] Valdez s/p Crowder continent ileostomy pouch endoscopy. Hospital Course 09/01 pouch endoscopy revealed normal pouch with partially slipped valve full discussion with patient regarding his condition, nature of the surgery ( creation of new valve and stoma and collar, possible stoma relocation, repair of recurrent incisional hernia with mesh, gastrostomy) including indications, alternatives, options and risks IV hydration via PICC line bowel prep continuous drainage of Crowder pouch IV antibiotics; SQ heparin pre-op 09/02 s/p surgery: Laparotomy with complex revision of Crowder continent ileostomy valve with extensive lysis of adhesions. Repair of recurrent incisional hernia, utilizing atrium mosaic 03FA coated polypropylene mesh. 09/03 pain management with DIRECTOR OF STUDENT FINANCIAL SERVICES with Dilaudid mobilized-ambulated intake and output closely monitored still with ileus , moderate protein calorie malnutrition/ present on admission TPN, n.p.o. status Bailey catheter due to pelvic dissection drainage of Crowder continent ileostomy continued IV antibiotics 09/04 ambulated with assistance TPN and NPO status DIRECTOR OF STUDENT FINANCIAL SERVICES continued P and Mg replaced Bailey continued continuous drainage of Crowder pouch maintained 09/05 Bailey catheter discontinued ; voiding freely noted coated tongue with trash rash intake and output closely monitored TPN , NPO status continuous drainage of Crowder pouch Diflucan x 1, then nystatin oral suspension Continuous infusion of Dilaudid DIRECTOR OF STUDENT FINANCIAL SERVICES discontinued, demand dosing continued 09/06 slowly resolving ileus TPN and NPO status continued DIRECTOR OF STUDENT FINANCIAL SERVICES with demand dosing only 09/07 started on clear liquid diet IV fluids and DIRECTOR OF STUDENT FINANCIAL SERVICES discontinued TPN continued continuous drainage of continent ileostomy pouch pain management with oral [place] as needed 09/08 clear liquids and TPN continued antibiotics stopped antiemetic as needed continuous drainage of continent ileostomy pouch 09/09 diet advanced to low residue BCIR diet TPN continued with decreased rate continuous drainage of Crowder pouch maintained 09/10 excessive and watery ileostomy output abdomen soft and healing nicely intake and output closely monitored stool for C. difficile toxin ordered started on empiric Flagyl continuous drainage of BCIR Diflucan daily for persistent thrush 09/11 TPN and IV fluids discontinued continuous drainage of BCIR stool for C. difficile negative. 09/12 persistent bacterial overgrowth enteritis high volume ileostomy output Cipro p.o. added to Flagyl p.o. continuous drainage of Crowder pouch maintained 09/13 resolving bacterial overgrowth enteritis continuous drainage of Crowder pouch maintained strict intake and output excessive fluid intake was avoided 09/14 stool leaking around around the Crowder Pouch catheter and out the stoma kat removed , Steri-Strips applied BCIR ileo pouch catheter removed, reinserted readily started on IV fluids due to dehydration magnesium replaced started on RN supervised BCIR self intubation every 3 hours and as needed from a.m. to hs strict intake and output continued 09/15 dehydration much improved later patient had gross incontinence , 28 Bailey inserted to BCIR pouch and connected to medium intermittent suction. Draining well , no stool around the catheter patient required endoscopy 09/16 BCIR catheter to wall suction with no incontinence around the tube, except if catheter becomes plugged until it is flushed/repositioned NPO and TPN continued pouch catheter was maintained to suction , except to drainage bag when patient ambulated plan for pouchogram x-ray and pouch endoscopy 09/17 [place] pouch pouchogram w/ SBS. contrast leaking around the catheter through the stoma. TPN and NPO status continued continuous drainage of Crowder pouch with suction maintained stool for C. difficile repeated and was negative high output e from ileostomy - 2L pouch endoscopy planned for 09/18 09/18 status post Crowder continent ileostomy pouch endoscopy no evidence of pouchitis valve well formed and well perfused; no valve fistula evident (may be a "microfistula"); no pouchitis patient tolerated procedure well continue current regimen for several more days, then another trial of self intubation to determine continence started on Imodium for high volume output 09/19 current management continued 09/20 current management continued 09/21 current management continued doing well with TPN , NPO status and Crowder pouch catheter to wall suction no incontinence for few days 09/22 doing well while NPO, on TPN no incontinence labs stable except albumin 3.2. 09/23 BCIR low residue diet to see if effluent thickens and if there would be any incontinence GI eval requested for persistent low albumin despite TPN and output issues 09/24 tolerated BCIR diet ; no leaking of stool around Crowder pouch catheter 09/25 trial of BCIR RN supervised self intubation started morning GI followed GI recommended continue current treatment with Imodium and consider tincture of opium to decrease GI motility if Imodium fails avoid Lomotil due to history of severe reaction monitor albumin and replace as needed another stool C. difficile collected and was negative continue GI prophylaxis with PPI 09/26 since start of BCIR self-intubations , he had no incontinence however he felt crampy, gassy, and output with intubation was forceful , with expulsion of gas and loose stool started on oral Cipro and Flagyl for pouchitis IV fluids continued TPN tapered down to discontinue in the evening 09/27 feeling much better after start of antibiotics for pouchitis self intubated his Crowder pouch with no incontinence in between evacuating labs stable except albumin 2.8 TPN and IV fluids discontinued PICC line discontinued 09/28 patient continued to do well off TPN abdomen soft, well-healed patient was stable for discharge follow-up in the office on 10/01 supplies/limitations/instruction provided/discussed prescription for antibiotic provided FINAL DIAGNOSES 1. Malfunctioning Crowder continent ileostomy with incontinence and some difficulty with intubation. 2. History of granulomatous colitis. 3. Status post multiple abdominal operations. 3.1. Abdominal colectomy and Kathy ileostomy in 1992. 3.2. Crowder continent ileostomy in 1996. 3.3. 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 4. s/p revision of partially slipped valve of Crowder continent ileostomy with pouch endoscopy 09/01/18 5.1. s/p Laparotomy with complex revision of Crowder continent ileostomy valve with extensive lysis of adhesions on 09/02/2018 5.2. Repair of recurrent incisional hernia utilizing atrium mosaic 03FA coated polypropylene mesh 09/02/2018 6. Ileus 7. Protein calorie malnutrition 8. Bacterial overgrowth enteritis 9. Oral thrush 10. 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 Hypoalbuminemia 13. Status post pouch endoscopy 09/18 14. Pouchitis Discharge Medications Continued Medications: B12/Levomefolate Calcium/B-6 (Folbic Rf Tablet) 1 Each Tablet 1 EACH PO, TAB (This prescription has been renewed) Folic Acid (Folic Acid) 0.4 Mg Tablet 0.4 MG ORAL DAILY, TAB (This prescription has been renewed) [myobetriq] () 25 MG PO EVERY OTHER DAY (This prescription has been renewed) Omeprazole/Sodium Bicarbonate (Zegerid Otc 20-1,100 Mg Cap) 1 Each Capsule 1 EACH ORAL DAILY, CAP (This prescription has been renewed) Vitamin D (Vitamin D3) 400 Unit Tablet 2000 UNITS ORAL DAILY, TAB (This prescription has been renewed) Discharge Condition Upon Discharge: stable Discharge Disposition Patient was discharged home Discharge Instructions Discharge Instructions Special Instructions I have been assigned to complete a D/C Summary on this account. I was not involved in the patient management Nona Cunningham NP Sep 30, 2018 09:50
== END 2018-09-28 16:00 | disposition home or self-care (01) | DRG 330 ==
LOC: 3E 08:30
PROC: 0DJD8ZZ Inspection of Lower Intestinal Tract, Via Natural or Artificial Opening Endoscopic (ICD-10-PCS; principal; 2018-09-01 13:05)
PROC: 02HV33Z Insertion of Infusion Device into Superior Vena Cava, Percutaneous Approach (ICD-10-PCS; principal; 2018-09-01 13:05)
PROC: B518ZZA Fluoroscopy of Superior Vena Cava, Guidance (ICD-10-PCS; principal; 2018-09-01 13:05)
PROC: 0DQB0ZZ Repair Ileum, Open Approach (ICD-10-PCS; 2018-09-02)
PROC: 0DN80ZZ Release Small Intestine, Open Approach (ICD-10-PCS; 2018-09-02)
PROC: 0WUF0JZ Supplement Abdominal Wall with Synthetic Substitute, Open Approach (ICD-10-PCS; 2018-09-02)
PROC: 02HV33Z Insertion of Infusion Device into Superior Vena Cava, Percutaneous Approach (ICD-10-PCS; 2018-09-16)
PROC: B518ZZA Fluoroscopy of Superior Vena Cava, Guidance (ICD-10-PCS; 2018-09-16)
PROC: 0DJD8ZZ Inspection of Lower Intestinal Tract, Via Natural or Artificial Opening Endoscopic (ICD-10-PCS; 2018-09-18)
DX: K94.13 Enterostomy malfunction (principal); E44.0 Moderate protein-calorie malnutrition; K56.7 Ileus, unspecified; K91.850 Pouchitis; B37.0 Candidal stomatitis; A04.9 Bacterial intestinal infection, unspecified; K43.2 Incisional hernia without obstruction or gangrene; K66.0 Peritoneal adhesions (postprocedural) (postinfection); E86.0 Dehydration; E88.09 Other disorders of plasma-protein metabolism, not elsewhere classified; T85.848A Pain due to other internal prosthetic devices, implants and grafts, initial encounter
CPT/HCPCS: 36415; 36569; 71045; 74270; 76937; 80048; 80053; 82150; 82248; 82962; 83690; 83735; 84100; 85025; 85610; 85651; 85730; 86140; 86850; 86900; 86901; 87324; 93005; 94003; 94150; J1815; J2250; J2405; J2710